=== PATIENT | female | born 1945 | race Caucasian/White ===

== ENCOUNTER 2020-02-28 06:10 | Outpatient (REF) | payer MEDICARE, SELFPAY ==
[2020-02-28 11:09] LABS: MANUAL DIFF FLAG NO
[2020-02-28 11:32] LABS: Basophils Absolute Auto 0.1 X10*3/uL (0.0-0.2); Basophils Percent Auto 0.8 % (0-2); Eosinophils Absolute Auto 0.1 X10*3/uL (0.0-0.4); Eosinophils Percent Auto 1.9 % (0-4); Hematocrit 38.8 % (37-47); Hemoglobin 12.5 g/dl (12.0-16.0); Imm Gran Abs Auto 0.01 X10*3/uL (0.00-0.03); Imm Gran Pct Auto 0.2 % (0.0-0.4); Lymphocytes Absolute Auto 3.1 X10*3/uL (1.2-4.9); Lymphocytes Percent Auto 48.1 % (20-40); Mean Corpuscular HGB Conc 32.2 g/dl (31.0-35.0); Mean Corpuscular Hemoglobin 29.5 pg (27.0-33.0); Mean Corpuscular Volume 91.5 fL (80-98); Mean Platelet Volume 9.3 fL (9.4-12.3); Monocytes Absolute Auto 0.4 X10*3/uL (0.1-1.2); Neutrophils Absolute Auto 2.8 X10*3/uL (2.0-8.3); Platelet Count 317 X10*3/uL (160-400); Red Blood Count 4.24 X10*6/uL (4.20-5.50); Red Cell Distribution Width 13.3 % (11.0-16.0); White Blood Count 6.5 X10*3/uL (4.8-10.8)
[2020-02-28 12:01] LABS: Alanine Aminotransferase 19 U/L (0-31); Albumin Level 4.3 g/dL (3.5-5.0); Alkaline Phosphatase 55 U/L (39-117); Anion Gap 14 (12-20); Aspartate Amino Transferase 23 U/L (5-31); Bilirubin Total 0.3 mg/dL (0.0-1.0); Blood Urea Nitrogen 18 mg/dL (9-16); Calcium 8.3 mg/dL (8.4-10.2); Carbon Dioxide 25 mmol/L (22-29); Chloride 107 mmol/L (96-108); Cholesterol 197 mg/dL; Estimated Glomerular Filt Rate > 60; Glucose Fasting 75 mg/dL (60-99); HDL Cholesterol 83 mg/dL; LDL Cholesterol Calculated 105 mg/dl; Potassium 4.3 mmol/l (3.3-5.1); Sodium 142 mmol/L (135-145); Total Protein 6.4 g/dL (6.5-8.0); Triglycerides 49 mg/dL
== END 2020-02-28 06:11 | disposition home or self-care (01) ==
LOC: HO.HMGCLDS 06:10
PROVIDERS: PCP Internal Medicine; Visit Provider Internal Medicine
DX: I10 Essential (primary) hypertension (principal); E78.00 Pure hypercholesterolemia, unspecified
CPT/HCPCS: 36415; 80053; 80061; 85025

== ENCOUNTER 2020-05-02 15:11 | Outpatient (REF) | payer MEDICARE, SELFPAY ==
[2020-05-02 16:09] LABS: Influenza A PCR NEGATIVE (Negative); Influenza B PCR NEGATIVE (Negative); Resp Syncy Virus RNA Qual PCR NEGATIVE (Negative); SARS COV2 PCR INHOUSE NEGATIVE (Negative)
== END 2020-05-02 15:12 | disposition home or self-care (01) ==
LOC: HO.LNP 15:11
PROVIDERS: Visit Provider Internal Medicine
DX: Z20.822 Contact with and (suspected) exposure to COVID-19 (principal); R51.9 Headache, unspecified
CPT/HCPCS: 0241U

== ENCOUNTER 2020-11-08 12:10 | Outpatient (REF) | payer MEDICARE, SELFPAY ==
--- NOTE | ~2020-11-08 | XR_ITS ---
EXAMINATION: XR FOOT, BILATERAL CLINICAL INFORMATION: Bilateral foot pain. COMPARISON: None TECHNIQUE: Three views of each foot. FINDINGS: Right: Bone alignment is normal. No fracture or dislocation is seen. There is hallux valgus deformity and degenerative change at the 1st MTP joint. There is degenerative change at the metatarsocuneiform and navicular 1st cuneiform joints. There is soft tissue swelling over the 1st metatarsal head. There is a small plantar calcaneal spur. Left: Bone alignment is normal. No fracture or dislocation is seen. There is joint space narrowing at the metatarsocuneiform and navicular 1st cuneiform joints. There is a small calcaneal spur. XR/XR foot LT min 3V IMPRESSION: Right: Hallux valgus deformity and degenerative change. Degenerative change at the metatarsocuneiform and navicular 1st cuneiform joints. Small plantar calcaneal spur. Left foot: Degenerative change at the metatarsocuneiform and navicular 1st cuneiform joints. Small plantar calcaneal spur.
--- NOTE | ~2020-11-08 | XR_ITS ---
EXAMINATION: XR FOOT, BILATERAL CLINICAL INFORMATION: Bilateral foot pain. COMPARISON: None TECHNIQUE: Three views of each foot. FINDINGS: Right: Bone alignment is normal. No fracture or dislocation is seen. There is hallux valgus deformity and degenerative change at the 1st MTP joint. There is degenerative change at the metatarsocuneiform and navicular 1st cuneiform joints. There is soft tissue swelling over the 1st metatarsal head. There is a small plantar calcaneal spur. Left: Bone alignment is normal. No fracture or dislocation is seen. There is joint space narrowing at the metatarsocuneiform and navicular 1st cuneiform joints. There is a small calcaneal spur. XR/XR foot RT min 3V IMPRESSION: Right: Hallux valgus deformity and degenerative change. Degenerative change at the metatarsocuneiform and navicular 1st cuneiform joints. Small plantar calcaneal spur. Left foot: Degenerative change at the metatarsocuneiform and navicular 1st cuneiform joints. Small plantar calcaneal spur.
== END 2020-11-08 12:11 | disposition home or self-care (01) ==
LOC: HO.HMGCX 12:10
PROVIDERS: PCP Internal Medicine; Visit Provider Internal Medicine
DX: M79.672 Pain in left foot (principal); M79.671 Pain in right foot; M21.612 Bunion of left foot; M21.611 Bunion of right foot
CPT/HCPCS: 73630

== ENCOUNTER 2020-11-20 14:36 | Outpatient (REF) | payer MEDICARE, SELFPAY ==
[2020-11-20 15:32] LABS: MANUAL DIFF FLAG NO
[2020-11-20 15:42] LABS: Basophils Percent Auto 0.3 % (0-2); Eosinophils Absolute Auto 0.1 X10*3/uL (0.0-0.4); Eosinophils Percent Auto 0.6 % (0-4); Hematocrit 38.3 % (37-47); Hemoglobin 12.9 g/dl (12.0-16.0); Imm Gran Abs Auto 0.04 X10*3/uL (0.00-0.03); Imm Gran Pct Auto 0.4 % (0.0-0.4); Lymphocytes Absolute Auto 2.3 X10*3/uL (1.2-4.9); Lymphocytes Percent Auto 23.6 % (20-40); Mean Corpuscular HGB Conc 33.7 g/dl (31.0-35.0); Mean Corpuscular Volume 86.1 fL (80-98); Mean Platelet Volume 8.8 fL (9.4-12.3); Monocytes Absolute Auto 0.6 X10*3/uL (0.1-1.2); Monocytes Percent Auto 6.1 % (2-11); Neutrophils Absolute Auto 6.6 X10*3/uL (2.0-8.3); Platelet Count 363 X10*3/uL (160-400); Red Blood Count 4.45 X10*6/uL (4.20-5.50); Red Cell Distribution Width 12.8 % (11.0-16.0); White Blood Count 9.5 X10*3/uL (4.8-10.8)
[2020-11-20 15:51] LABS: Glucose Urine UA NEG (NEG); Leukocyte Esterase Urine TRACE (NEG); Nitrite Urine NEG (NEG); Specific Gravity - Urine 1.015 (1.005-1.025); UACC Culture Trigger YES; Urine Blood TRACE (NEG); Urine Ketones NEG (NEG); Urine Protein NEG (NEG-TRACE)
[2020-11-20 15:55] LABS: Alanine Aminotransferase 17 U/L (0-31); Albumin Level 4.5 g/dL (3.5-5.0); Alkaline Phosphatase 60 U/L (39-117); Anion Gap 15 (12-20); Appearance Urine CLEAR; Aspartate Amino Transferase 22 U/L (5-31); Bilirubin Total 0.2 mg/dL (0.0-1.0); Blood Urea Nitrogen 12 mg/dL (9-16); C Reactive Protein 0.04 mg/dL (< or = 0.50); Calcium 9.8 mg/dL (8.4-10.2); Carbon Dioxide 23 mmol/L (22-29); Chloride 99 mmol/L (96-108); Color Urine YELLOW; Estimated Glomerular Filt Rate > 60; Glucose Random 89 mg/dL (60-115); Potassium 4.5 mmol/L (3.3-5.1); Sodium 132 mmol/L (135-145); Total Protein 6.8 g/dL (6.5-8.0)
[2020-11-20 16:10] LABS: Bacteria Urine 1+ /LPF; Granular Casts Urine 0-2 /LPF; Squamous Epithelial Cell Urine 1+ /LPF
== END 2020-11-20 14:37 | disposition home or self-care (01) ==
LOC: HO.LAB 14:36
PROVIDERS: PCP Internal Medicine; Visit Provider Internal Medicine
DX: R55 Syncope and collapse (principal); I10 Essential (primary) hypertension; R53.83 Other fatigue; R51.9 Headache, unspecified
CPT/HCPCS: 36415; 80053; 81001; 84443; 85025; 86140; 87086

== ENCOUNTER 2020-11-21 08:12 | Outpatient (REF) | payer MEDICARE, SELFPAY ==
--- NOTE | ~2020-11-21 | CT_ITS ---
EXAMINATION: CT HEAD WITH/WITHOUT CONTRAST CLINICAL INFORMATION: Weakness and dizziness. Headache COMPARISON: MRI of March 03, 2013 TECHNIQUE: Contiguous axial imaging was performed from the skull base to vertex before and after the administration of 85 mL of Omnipaque [address] examination was performed using dose optimization techniques as appropriate, variously including the following: *Automated exposure control *Adjustment of mA and/or kV according to patient size (this includes techniques or standardized protocols for targeted exams where dose is matched to indication/reason for exam; i.e. extremities or head) *Use of iterative reconstruction technique DLP: 1450 mGy-cm FINDINGS: There is no evidence of acute intracranial hemorrhage or territorial infarction. No abnormal mass effect or midline shift is seen. Jerome to white matter differentiation is preserved. No extra-axial fluid collections are identified. There is no abnormal enhancement. Ventricles, sulci, and cisterns are prominent consistent with atrophy. There is a large amount of periventricular white low-density consistent with microangiopathy. The osseous structures and soft tissues are normal. The mastoid air cells and visualized portions of the paranasal sinuses are well aerated. CT/CT head/brain wo/w con IMPRESSION: No acute intracranial pathology. No abnormal enhancing mass lesions. Findings consistent with microangiopathy. Generalized atrophy.
[2020-11-21] MEDS: iohexoL 350 MG/ML 100 ML INFUS..BTL IV (09:59)
== END 2020-11-21 08:13 | disposition home or self-care (01) ==
LOC: HO.CT 08:12
PROVIDERS: PCP Internal Medicine; Visit Provider Internal Medicine
DX: R51.9 Headache, unspecified (principal); R42 Dizziness and giddiness; R53.1 Weakness
CPT/HCPCS: 70470; Q9967

== ENCOUNTER 2020-11-22 10:29 | Outpatient (REF) | payer MEDICARE, SELFPAY ==
[2020-11-22 11:37] LABS: Influenza A PCR NEGATIVE (Negative); Influenza B PCR NEGATIVE (Negative); Resp Syncy Virus RNA Qual PCR NEGATIVE (Negative); SARS COV2 PCR INHOUSE NEGATIVE (Negative)
== END 2020-11-22 10:30 | disposition home or self-care (01) ==
LOC: HO.LNP 10:29
PROVIDERS: Visit Provider Internal Medicine
DX: Z20.822 Contact with and (suspected) exposure to COVID-19 (principal)
CPT/HCPCS: 0241U

== ENCOUNTER 2021-02-12 08:40 | Outpatient (REF) | payer MEDICARE, SELFPAY ==
--- NOTE | ~2021-02-12 | MM_ITS ---
EXAMINATION: MM SCREENING DIGITAL BREAST TOMOSYNTHESIS, BILATERAL CLINICAL INFORMATION: Screening. Asymptomatic. The lifetime risk of breast cancer based on the Tyrer-Cuzick Model is 2%. COMPARISON: Mammography: 12/26/2019, 12/20/2018, 11/19/2017 TECHNIQUE: Digital breast tomosynthesis is performed in both the craniocaudal and mediolateral oblique views along with computer-aided detection (CAD). Synthesized 2D images are generated from the tomosynthesis. FINDINGS: There are scattered areas of fibroglandular density (ACR BI-RADS breast composition Category b). There are no significant masses, abnormal calcifications, or other abnormalities. There are scattered benign round calcifications and stable grouped benign coarse calcifications retroareolar right breast. Two small intramammary node posterior 9:00-10:00 right breast are stable as well. No significant changes. MM/MM tomosynthesis screening BI IMPRESSION: No mammographic evidence of malignancy. ASSESSMENT: BI-RADS 2: Benign RECOMMENDATION: Routine annual mammography screening. This patient's information was entered into a reminder system with a target due date for their next mammogram.
== END 2021-02-12 08:41 | disposition home or self-care (01) ==
LOC: HO.MAMMO 08:40
PROVIDERS: Visit Provider Internal Medicine
DX: Z12.31 Encounter for screening mammogram for malignant neoplasm of breast (principal)
CPT/HCPCS: 77063; 77067

== ENCOUNTER 2021-07-22 14:36 | Outpatient (REF) | payer MEDICARE, SELFPAY ==
[2021-07-22 15:30] LABS: Influenza A PCR NEGATIVE (Negative); Influenza B PCR NEGATIVE (Negative); Resp Syncy Virus RNA Qual PCR NEGATIVE (Negative); SARS COV2 PCR INHOUSE NEGATIVE (Negative)
== END 2021-07-22 14:37 | disposition home or self-care (01) ==
LOC: HO.LNP 14:36
PROVIDERS: Visit Provider Internal Medicine
DX: Z20.822 Contact with and (suspected) exposure to COVID-19 (principal); J02.9 Acute pharyngitis, unspecified
CPT/HCPCS: 0241U

== ENCOUNTER 2022-01-02 15:54 | Emergency (ER) | payer MEDICARE, SELFPAY ==
--- NOTE | ~2022-01-02 | XR_ITS ---
EXAMINATION: XR CHEST CLINICAL INFORMATION: Chest pain COMPARISON: None TECHNIQUE: Frontal view of the chest was obtained. FINDINGS: No significant abnormality is noted involving the heart, lungs, mediastinum, bony thorax or soft tissues. XR/XR chest 1V IMPRESSION: Unremarkable chest examination.
--- NOTE | 2022-01-02 15:58 | ECG_ITS ---
Test Reason : cp Blood Pressure : / mmHG Vent. Rate : 072 BPM Atrial Rate : 072 BPM P-R Int : 146 ms QRS Dur : 068 ms QT Int : 410 ms P-R-T Axes : 036 -17 -13 degrees QTc Int : 448 ms Sinus rhythm with Premature atrial complexes Nonspecific ST abnormality Abnormal ECG When compared with ECG of 02-JAN-2022 16:02, No significant change was found Referred By: Chloe Reddy Electronically Signed By:LAXMI GERARD
[2022-01-02 15:59] VITALS: BP 186/87; PULSE 75; RESP 18; TEMP 36.3; O2SAT 98; BMI 28.3
[2022-01-02 16:17] LABS: MANUAL DIFF FLAG NO
[2022-01-02 16:29] LABS: Basophils Percent Auto 0.3 % (0-2); Eosinophils Absolute Auto 0.1 X10*3/uL (0.0-0.4); Eosinophils Percent Auto 0.8 % (0-4); Hematocrit 36.2 % (37.0-47.0); Hemoglobin 12.2 g/dl (12.0-16.0); Imm Gran Abs Auto 0.01 X10*3/uL (0.00-0.03); Imm Gran Pct Auto 0.1 % (0.0-0.4); Lymphocytes Percent Auto 34.6 % (20-40); Mean Corpuscular HGB Conc 33.7 g/dl (31.0-35.0); Mean Corpuscular Hemoglobin 29.2 pg (27.0-33.0); Mean Corpuscular Volume 86.6 fL (80.0-98.0); Mean Platelet Volume 8.6 fL (9.4-12.3); Monocytes Absolute Auto 0.6 X10*3/uL (0.1-1.2); Monocytes Percent Auto 6.3 % (2-11); Neutrophils Percent Auto 57.9 % (45-73); Platelet Count 285 X10*3/uL (160-400); Red Blood Count 4.18 X10*6/uL (4.20-5.50); White Blood Count 8.7 X10*3/uL (4.8-10.8)
[2022-01-02 16:36] LABS: Alanine Aminotransferase 17 U/L (0-31); Albumin Level 4.3 g/dL (3.5-5.0); Alkaline Phosphatase 62 U/L (39-117); Anion Gap 15 (12-20); Aspartate Amino Transferase 20 U/L (5-31); Bilirubin Total 0.2 mg/dL (0.0-1.0); Blood Urea Nitrogen 15 mg/dL (9-16); Calcium 9.2 mg/dL (8.4-10.2); Carbon Dioxide 25 mmol/L (22-29); Chloride 100 mmol/L (96-108); Creatinine Clr Calc Pharmacy 60.1; Estimated Glomerular Filt Rate > 60; Glucose Random 104 mg/dL (60-115); Sodium 136 mmol/L (135-145); Total Protein 6.7 g/dL (6.5-8.0)
[2022-01-02 16:42] LABS: Troponin-I High Sensitivity 4.5 ng/L (<3.5-17.0)
[2022-01-02 18:52] VITALS: BP 179/78; PULSE 75; RESP 18; O2SAT 96
[2022-01-02 20:00] VITALS: PULSE 76
--- NOTE | 2022-01-02 21:06 | ED_ITS ---
HPI - Chest Pain General Chief Complaint: Chest Pain Stated Complaint: sent by urgent care, blood work Time Seen by Provider: 01/02/22 21:06 Source: patient Mode of arrival: ambulatory Limitations: no limitations History of Present Illness HPI narrative: 76 yo female with hx of HTN here with c/o sharp R upper chest pain with no associated symptoms started at rest around 11am lasted two hours. Hurt to touch and now feels sore. Did lift a heavy wheelchair yesterday. Family hx of CAD in all relatives. No known CAD in patient. MD complaint: chest pain Onset (ago): hour(s) (11am today ) Timing of current episode: now resolved Prior episodes: No Onset: during rest Pain location: right chest Pain radiation: none Severity: moderate Quality: sharp Relieving factors: nothing Exacerbating factors: palpation Treatment prior to arrival: none Related Data Allergies Allergy/AdvReac Type Severity Reaction Status Date / Time epinephrine [EPINEPHRINE] Allergy Severe EPI MIXED Unverified 01/11/20 16:12 IN A LOCAL ANES. lOW BP LIGHTHEADEDNES, bradycardia amoxicillin [AMOXICILLIN] Allergy Mild RASH Unverified 01/11/20 16:12 penicillin V Allergy Unknown rash Verified 11/03/16 00:00 Review of Systems Review of Systems: Constitutional : No Weight loss, No Fever, No Chills ENT/Mouth : No sore throat, No Rhinorrhea Eyes: No Eye Pain, No Swelling Cardiovascular : pos Chest Pain, no SOB, no Dyspnea on Exertion, No Orthopnea, No Edema, No Palpitations Respiratory : No Cough, No Sputum Gastrointestinal : no Nausea, No Vomiting, No Diarrhea, No abdominal Pain, No Hematochezia, No Melena Genitourinary : No Dysuria, No Urinary Frequency Musculoskeletal : No joint pain, No Myalgias, No Joint Swelling Skin : No Skin Lesions, No rash Neuro : No Weakness, No Numbness, No Dizziness, No Headache Psych : No Anxiety/Panic, No Depression Heme/Lymph: No Bruising, No Lymphadenopathy Endocrine : No Polyuria, No Polydipsia All other systems reviewed and are negative FOR[facility]LY [facility] Past Medical History Attestation statement: The following information was validated with the patient. Medical History HTN (hypertension) Social History Social History (Updated 01/02/22 @ 21:38 by Chloe Reddy DO) Patient Tobacco Use Status: Never used Tobacco Advance Directives: Yes Advance Directives Information Provided: No Advance Directives on File: No Physical Exam Vital Signs: Vital Signs: Last Vital Signs Temp 97.3 F 01/02/22 15:59 Pulse 75 01/02/22 18:52 Resp 18 01/02/22 18:52 BP 179/78 H 01/02/22 18:52 Pulse Ox 96 01/02/22 18:52 O2 Del Method 01/02/22 18:52 BMI result Body Mass Index 28.3 Appearance: Alert. Oriented X3. No acute distress. Eyes: Pupils equal, round and reactive to light. ENT: Pharynx normal. Neck: Normal inspection. Neck supple. CVS: Normal heart rate and rhythm. Pulses normal. Chest: ttp along R upper chest wall reproduces pain Respiratory: No respiratory distress. Breath sounds normal. Abdomen: Soft and non-tender. Skin: Skin warm and dry. Normal skin color. Normal skin turgor. Extremities: No lower extremity edema. No calf ttp Neuro: Oriented X 3. No motor deficit. No sensory deficit. Course Course Course Narrative: trop flat x 2, ddimer negative at this time stable for DC heart score is 4 symptoms started 12 hours ago nonspecific but noted in just one complex not through all V4-V6 given trend over 12 hours that is good observation with flat troponins can be DC home with outpatient follow up MDM - Chest Pain MDM Narrative Medical decision making narrative: 76 yo female with hx HTN here with c/o reproduceable R upper chest pain thinks it was related to lifting a heavy WC yesterday for a friend. She has very subtle ST depressions in V4-6 but less than 1mm and only in 1 complex ?artifact. Her pain is very atypical in nature. At this time will repeat EKG, obtain troponin x 2, ddimer, CXR. If negative anticipate outpatient follow up with her PCP Lab Data Result diagrams: 01/02/22 16:13 01/02/22 16:13 Labs: Lab Results 01/02/22 01/02/22 01/02/22 Range/Units 16:13 16:13 16:13 WBC 8.7 (4.8-10.8) X10*3/uL RBC 4.18 L (4.20-5.50) X10*6/uL Hgb 12.2 (12.0-16.0) g/dl Hct 36.2 L (37.0-47.0) % MCV 86.6 (80.0-98.0) fL MCH 29.2 (27.0-33.0) pg MCHC 33.7 (31.0-35.0) g/dl RDW 13.0 (11.0-16.0) % Plt Count 285 (160-400) X10*3/uL MPV 8.6 L (9.4-12.3) fL Immature Gran % (Auto) 0.1 (0.0-0.4) % Neut % (Auto) 57.9 (45-73) % Lymph % (Auto) 34.6 (20-40) % Jackson % (Auto) 6.3 (2-11) % Eos % (Auto) 0.8 (0-4) % Baso % (Auto) 0.3 (0-2) % Lymph # (Auto) 3.0 (1.2-4.9) X10*3/uL Jackson # (Auto) 0.6 (0.1-1.2) X10*3/uL Eos # (Auto) 0.1 (0.0-0.4) X10*3/uL Baso # (Auto) 0.0 (0.0-0.2) X10*3/uL Abs Immat Gran (auto) 0.01 (0.00-0.03) X10*3/uL Absolute Neuts (auto) 5.0 (2.0-8.3) x10*3/uL Absolute Nucleated RBC 0.000 (0.0-0.012) X10*3/uL Nucleated RBC % (auto) 0.0 (0.0-0.2) /100WBC D-Dimer High Sensitivty NG/ML Sodium 136 (135-145) mmol/L Potassium 4.0 (3.3-5.1) mmol/L Chloride 100 (96-108) mmol/L Carbon Dioxide 25 (22-29) mmol/L Anion Gap 15 (12-20) BUN 15 (9-16) mg/dL Creatinine 0.68 (0.5-1.4) mg/dL Estim Creat Clear Calc 60.1 Estimated GFR > 60 Random Glucose 104 (60-115) mg/dL Calcium 9.2 D (8.4-10.2) mg/dL Total Bilirubin 0.2 (0.0-1.0) mg/dL AST 20 (5-31) U/L ALT 17 (0-31) U/L Alkaline Phosphatase 62 (39-117) U/L Troponin I High Sens 4.5 (<3.5-17.0) ng/L Total Protein 6.7 (6.5-8.0) g/dL Albumin 4.3 (3.5-5.0) g/dL 01/02/22 01/02/22 Range/Units 21:21 21:21 WBC (4.8-10.8) X10*3/uL RBC (4.20-5.50) X10*6/uL Hgb (12.0-16.0) g/dl Hct (37.0-47.0) % MCV (80.0-98.0) fL MCH (27.0-33.0) pg MCHC (31.0-35.0) g/dl RDW (11.0-16.0) % Plt Count (160-400) X10*3/uL MPV (9.4-12.3) fL Immature Gran % (Auto) (0.0-0.4) % Neut % (Auto) (45-73) % Lymph % (Auto) (20-40) % Jackson % (Auto) (2-11) % Eos % (Auto) (0-4) % Baso % (Auto) (0-2) % Lymph # (Auto) (1.2-4.9) X10*3/uL Jackson # (Auto) (0.1-1.2) X10*3/uL Eos # (Auto) (0.0-0.4) X10*3/uL Baso # (Auto) (0.0-0.2) X10*3/uL Abs Immat Gran (auto) (0.00-0.03) X10*3/uL Absolute Neuts (auto) (2.0-8.3) x10*3/uL Absolute Nucleated RBC (0.0-0.012) X10*3/uL Nucleated RBC % (auto) (0.0-0.2) /100WBC D-Dimer High Sensitivty < 150 NG/ML Sodium (135-145) mmol/L Potassium (3.3-5.1) mmol/L Chloride (96-108) mmol/L Carbon Dioxide (22-29) mmol/L Anion Gap (12-20) BUN (9-16) mg/dL Creatinine (0.5-1.4) mg/dL Estim Creat Clear Calc Estimated GFR Random Glucose (60-115) mg/dL Calcium (8.4-10.2) mg/dL Total Bilirubin (0.0-1.0) mg/dL AST (5-31) U/L ALT (0-31) U/L Alkaline Phosphatase (39-117) U/L Troponin I High Sens 3.6 (<3.5-17.0) ng/L Total Protein (6.5-8.0) g/dL Albumin (3.5-5.0) g/dL ECG Data ECG #1: Attestation: I personally reviewed and interpreted this ECG as follows: ECG interpretation date: 01/02/22 ECG interpretation time: 21:07 Interpretation: Rate: 73 Rhythm: NSR [place]: left Normal P waves. Normal DANIELLE. Normal QRS complex. ST T wave : no LILLI, subtle ST depressions V4-V6 less than 1mm but only in 1 complex beat qTC: normal prior studies: no priors The study has been interpreted contemporaneously by me. EKG #2 Rate: 72 Rhythm: NSR [place]: left Normal P waves. Normal DANIELLE. Normal QRS complex. ST T wave : no LILLI, V4-V6 nonspecific changes qTC: normal prior studies: ST depressions less evident - tech noted she changed sticker placement The study has been interpreted contemporaneously by me. . Scores Heart Score History: -0- slightly suspicious ECG: -1- non specific repolarization disturbance Age: -2- > or = 65 Risk factory: -1- 1 or 2 risk factors Troponin: -0- < or = normal limit Score: 4 Risk: 16.6% Discharge Plan Discharge Clinical Impression: Chest pain Qualifiers: Chest pain type: unspecified Qualified Code(s): R07.9 - Chest pain, unspecified Patient Disposition: Home, Self-Care Instructions: Chest Pain (ED) Additional Instructions: return to ED for any worsening symptoms or concerns chest xray two heart tests negative blood clot test negative you will need to call your primary care doctor for outpatient stress test next week take a baby 81mg aspirin daily
--- NOTE | 2022-01-02 21:26 | ECG_ITS ---
Test Reason : CHEST PAIN Blood Pressure : / mmHG Vent. Rate : 073 BPM Atrial Rate : 073 BPM P-R Int : 158 ms QRS Dur : 080 ms QT Int : 414 ms P-R-T Axes : 049 -25 007 degrees QTc Int : 456 ms Sinus rhythm with Premature atrial complexes Nonspecific ST abnormality Abnormal ECG When compared with ECG of 28-AUG-2005 16:24, Premature ventricular complexes are no longer Present Premature atrial complexes are now Present T wave inversion no longer evident in Lateral leads Nonspecific ST abnormality is now Present Referred By: Chloe Reddy Electronically Signed By:LAXMI GERARD
[2022-01-02 21:51] LABS: Troponin-I High Sensitivity 3.6 ng/L (<3.5-17.0)
[2022-01-02 22:04] LABS: D Dimer High Sensitivity < 150 NG/ML
[2022-01-02 22:15] VITALS: BP 158/90; PULSE 89; RESP 15; O2SAT 99
== END 2022-01-02 22:23 | disposition home or self-care (01) ==
PROVIDERS: Emergency Provider Emergency Medicine; PCP Internal Medicine
DX: R07.89 Other chest pain (principal); Z79.899 Other long term (current) drug therapy
CPT/HCPCS: 36415; 71045; 80053; 84484; 85025; 85379; 93005; 99283; 99284

== ENCOUNTER 2022-02-18 09:36 | Outpatient (REF) | payer MEDICARE, SELFPAY ==
--- NOTE | ~2022-02-18 | MM_ITS ---
EXAMINATION: MM SCREENING DIGITAL BREAST TOMOSYNTHESIS, BILATERAL CLINICAL INFORMATION: Screening. Asymptomatic. The lifetime risk of breast cancer based on the Tyrer-Cuzick Model is 3%. COMPARISON: Mammography: 02/12/2021, 12/26/2019, 12/20/2018, 11/19/2017 TECHNIQUE: Digital breast tomosynthesis is performed in both the craniocaudal and mediolateral oblique views along with computer-aided detection (CAD). Synthesized 2D images are generated from the tomosynthesis. FINDINGS: There are scattered areas of fibroglandular density (ACR BI-RADS breast composition Category b). There are no significant masses, abnormal calcifications, or other abnormalities. Parenchymal pattern is similar to prior exams. No developing density. Benign grouped coarse calcifications anterior right breast are similar to prior studies. The axilla and skin contours are unremarkable. MM/MM tomosynthesis screening BI IMPRESSION: No mammographic evidence of malignancy. ASSESSMENT: BI-RADS 2: Benign RECOMMENDATION: Routine annual mammography screening. This patient's information was entered into a reminder system with a target due date for their next mammogram.
== END 2022-02-18 09:37 | disposition home or self-care (01) ==
LOC: HO.MAMMO 09:36
PROVIDERS: PCP Internal Medicine; Visit Provider Internal Medicine
DX: Z12.31 Encounter for screening mammogram for malignant neoplasm of breast (principal)
CPT/HCPCS: 77063; 77067

== ENCOUNTER 2022-05-07 10:55 | Outpatient (REF) | payer MEDICARE, SELFPAY ==
--- NOTE | ~2022-05-07 | MM_ITS ---
EXAMINATION: BONE DENSITOMETRY CLINICAL INDICATION: Menopause. COMPARISON: Previous BD dated 10/20/2016 and baseline BD dated 04/01/2009. TECHNIQUE: Using a [employer] DXA System (software version: 13.1) manufactured by [employer], dual-energy x-ray absorptiometry was performed of the lumbar spine and left hip. The images are of good technical quality. Summary results are attached. FINDINGS: AP SPINE L1-L2 (excluding L3 and L4): The data of L1-L4 has been changed to exclude the L3 and L4 vertebral bodies, because degenerative sclerosis at these levels may cause overestimation of lumbar spine density. Current: BMD 0.868 g/cm2, Z-score -0.7, T-score -2.5, osteoporosis, 8.3% decrease from previous, 5.7% decrease from baseline (<5% change is not significant). Prior: BMD 0.947 g/cm2. Baseline: BMD 0.920 g/cm2. LEFT FEMUR, NECK: Current: BMD 0.710 g/cm2, Z-score -0.3, T-score -2.4, osteopenia. Prior: BMD 0.759 g/cm2. Baseline: BMD 0.786 g/cm2. LEFT FEMUR, TOTAL: Current: BMD 0.786 g/cm2, Z-score 0.1, T-score -1.8, osteopenia, 5.3% decrease from previous, 8.5% decrease from baseline (<5% change is not significant). Prior: BMD 0.830 g/cm2. Baseline: BMD 0.859 g/cm2. IDENTIFIED RISK FACTORS: Menopause, height loss, history of fracture (adult), osteoporosis. HISTORY OF FRACTURE: Other. MEDICATIONS: Calcium, vitamin D. MM/XR DEXA axial skeleton IMPRESSION: 1. DIAGNOSIS: Osteoporosis based on the lowest T-score value of -2.5 in the lumbar spine applying World Health Organization criteria. 2. 10-YEAR FRACTURE RISK PREDICTION, FRAX: According to the guidelines, FRAX calculation should only be performed on patients in the osteopenia bone density category. Therefore, FRAX was not performed on this patient. 3. Treatment Recommendations: NOF guidelines recommend consideration for treatment in postmenopausal women and men age 50 and older presenting with the following: -A hip or vertebral (clinical or morphometric) fracture. -T-score less than or equal to -2.5 at the femoral neck or spine after appropriate evaluation to exclude secondary causes. -Low bone mass at the hip or spine and a 10-year fracture probability by FRAX of greater than or equal to 3% for hip fracture or greater than or equal to 20% for major osteoporotic fracture based on the [place] adapted WHO algorithm. 4. Other Recommendations: All treatment decisions require clinical judgment and consideration of individual patient factors, including patient preferences, comorbidities, previous drug use, risk factors not captured in the FRAX model (e.g. frailty, falls, vitamin D deficiency, increased bone turnover, interval significant decline in bone density) and possible under or overestimation of fracture risk by FRAX. Additional medical evaluation for secondary cause of low bone mineral density may be appropriate. FUTURE SCAN RECOMMENDATION: People with diagnosed cases of osteoporosis or at high risk for fracture should have regular bone mineral density tests. For patients eligible for Medicare, routine testing is allowed once every 2 years. The testing frequency can be increased to one year for patients who have rapidly progressing disease, those who are receiving or discontinuing medical therapy to restore bone mass, or have additional risk factors.
== END 2022-05-07 10:56 | disposition home or self-care (01) ==
LOC: HO.MAMMO 10:55
PROVIDERS: PCP Internal Medicine; Visit Provider Internal Medicine
DX: Z13.820 Encounter for screening for osteoporosis (principal); Z78.0 Asymptomatic menopausal state
CPT/HCPCS: 77080

== ENCOUNTER 2022-05-13 06:17 | Outpatient (REF) | payer MEDICARE, SELFPAY ==
[2022-05-13 11:47] LABS: MANUAL DIFF FLAG NO
[2022-05-13 11:54] LABS: Basophils Percent Auto 0.3 % (0-2); Eosinophils Absolute Auto 0.1 X10*3/uL (0.0-0.4); Hematocrit 38.1 % (37.0-47.0); Hemoglobin 12.5 g/dl (12.0-16.0); Imm Gran Abs Auto 0.01 X10*3/uL (0.00-0.03); Imm Gran Pct Auto 0.1 % (0.0-0.4); Lymphocytes Absolute Auto 2.9 X10*3/uL (1.2-4.9); Mean Corpuscular HGB Conc 32.8 g/dl (31.0-35.0); Mean Corpuscular Hemoglobin 29.6 pg (27.0-33.0); Mean Corpuscular Volume 90.3 fL (80.0-98.0); Mean Platelet Volume 9.3 fL (9.4-12.3); Monocytes Absolute Auto 0.5 X10*3/uL (0.1-1.2); Monocytes Percent Auto 6.6 % (2-11); Neutrophils Absolute Auto 3.5 x10*3/uL (2.0-8.3); Platelet Count 325 X10*3/uL (160-400); Red Blood Count 4.22 X10*6/uL (4.20-5.50); Red Cell Distribution Width 13.1 % (11.0-16.0)
[2022-05-13 12:22] LABS: Alanine Aminotransferase 16 U/L (0-31); Alkaline Phosphatase 49 U/L (39-117); Anion Gap 11 (12-20); Aspartate Amino Transferase 19 U/L (5-31); Bilirubin Total 0.4 mg/dL (0.0-1.0); Blood Urea Nitrogen 21 mg/dL (9-16); Calcium 9.7 mg/dL (8.4-10.2); Carbon Dioxide 27 mmol/L (22-29); Chloride 107 mmol/L (96-108); Cholesterol 196 mg/dL; Estimated Glomerular Filt Rate > 60; Glucose Fasting 79 mg/dL (60-99); HDL Cholesterol 77 mg/dL; LDL Cholesterol Calculated 106 mg/dl; Potassium 4.1 mmol/L (3.3-5.1); Sodium 141 mmol/L (135-145); Total Protein 6.3 g/dL (6.5-8.0); Triglycerides 66 mg/dL
== END 2022-05-13 06:18 | disposition home or self-care (01) ==
LOC: HO.HMGCLDS 06:17
PROVIDERS: PCP Internal Medicine; Visit Provider Internal Medicine
DX: Z00.00 Encounter for general adult medical examination without abnormal findings (principal)
CPT/HCPCS: 36415; 80053; 80061; 85025

== ENCOUNTER 2023-02-23 09:46 | Outpatient (REF) | payer MEDICARE, SELFPAY ==
--- NOTE | ~2023-02-23 | MM_ITS ---
EXAMINATION: MM SCREENING DIGITAL BREAST TOMOSYNTHESIS, BILATERAL CLINICAL INFORMATION: Screening. Asymptomatic. COMPARISON: Mammography: This study is compared with prior exams dating back to 2016. TECHNIQUE: Digital breast tomosynthesis is performed in both the craniocaudal and mediolateral oblique views along with computer-aided detection (CAD). Synthesized 2D images are generated from the tomosynthesis. FINDINGS: There are scattered areas of fibroglandular density (ACR BI-RADS breast composition Category b). There are no significant masses, abnormal calcifications, or other abnormalities. Few, bilateral benign calcifications are present in each breast. MM/MM tomosynthesis screening BI IMPRESSION: No mammographic evidence of malignancy. ASSESSMENT: BI-RADS BI-RADS 2 - Benign Findings RECOMMENDATION: Routine annual mammography screening. 1 year F/U This examination should not preclude the clinical evaluation of a suspicious palpable abnormality. This patient's information was entered into a reminder system with a target due date for their next mammogram.
== END 2023-02-23 09:47 | disposition home or self-care (01) ==
LOC: HO.MAMMO 09:46
PROVIDERS: PCP Internal Medicine; Visit Provider Internal Medicine
DX: Z12.31 Encounter for screening mammogram for malignant neoplasm of breast (principal)
CPT/HCPCS: 77063; 77067

== ENCOUNTER → 2023-02-23 10:00 | Outpatient (BNV) | payer MEDICARE, SELFPAY | PROVIDERS: PCP Internal Medicine; Visit Provider Radiology Diagnostic Radiology | DX: Z12.31 Encounter for screening mammogram for malignant neoplasm of breast (principal) | CPT/HCPCS: 77063; 77067 ==

== ENCOUNTER 2023-06-16 06:26 | Outpatient (REF) | payer MEDICARE, SELFPAY ==
[2023-06-16 11:15] LABS: MANUAL DIFF FLAG NO
[2023-06-16 11:24] LABS: Basophils Percent Auto 0.5 % (0-2); Eosinophils Absolute Auto 0.1 X10*3/uL (0.0-0.4); Eosinophils Percent Auto 1.6 % (0-4); Hematocrit 37.8 % (37.0-47.0); Hemoglobin 12.4 g/dl (12.0-16.0); Imm Gran Abs Auto 0.02 X10*3/uL (0.00-0.03); Imm Gran Pct Auto 0.3 % (0.0-0.4); Lymphocytes Absolute Auto 2.6 X10*3/uL (1.2-4.9); Lymphocytes Percent Auto 40.1 % (20-40); Mean Corpuscular HGB Conc 32.8 g/dl (31.0-35.0); Mean Corpuscular Hemoglobin 29.7 pg (27.0-33.0); Mean Corpuscular Volume 90.6 fL (80.0-98.0); Monocytes Absolute Auto 0.4 X10*3/uL (0.1-1.2); Monocytes Percent Auto 6.2 % (2-11); Neutrophils Absolute Auto 3.3 x10*3/uL (2.0-8.3); Neutrophils Percent Auto 51.3 % (45-73); Platelet Count 326 X10*3/uL (160-400); Red Blood Count 4.17 X10*6/uL (4.20-5.50); Red Cell Distribution Width 13.1 % (11.0-16.0); White Blood Count 6.4 X10*3/uL (4.8-10.8)
[2023-06-16 11:39] LABS: Alanine Aminotransferase 19 U/L (0-31); Albumin Level 3.9 g/dL (3.5-5.0); Alkaline Phosphatase 49 U/L (39-117); Anion Gap 11 (12-20); Aspartate Amino Transferase 21 U/L (5-31); Bilirubin Total 0.3 mg/dL (0.0-1.0); Blood Urea Nitrogen 19 mg/dL (9-16); Calcium 9.1 mg/dL (8.4-10.2); Carbon Dioxide 29 mmol/L (22-29); Chloride 108 mmol/L (96-108); Cholesterol 188 mg/dL (<200); Estimated Glomerular Filt Rate > 60; Glucose Fasting 77 mg/dL (60-99); HDL Cholesterol 75 mg/dL (>40); LDL Cholesterol Calculated 100 mg/dL (<100); Potassium 3.8 mmol/L (3.3-5.1); Sodium 144 mmol/L (135-145); Total Protein 6.5 g/dL (6.5-8.0); Triglycerides 66 mg/dL (<150)
== END 2023-06-16 06:27 | disposition home or self-care (01) ==
LOC: HO.HMGCLDS 06:26
PROVIDERS: PCP Internal Medicine; Visit Provider Internal Medicine
DX: I10 Essential (primary) hypertension (principal); E78.00 Pure hypercholesterolemia, unspecified
CPT/HCPCS: 36415; 80053; 80061; 85025

== ENCOUNTER 2023-10-18 12:22 | Outpatient (REF) | payer MEDICARE, SELFPAY ==
[2023-10-18 13:25] LABS: MANUAL DIFF FLAG NO
[2023-10-18 13:28] LABS: Basophils Percent Auto 0.4 % (0-2); Eosinophils Absolute Auto 0.1 X10*3/uL (0.0-0.4); Eosinophils Percent Auto 0.6 % (0-4); Hematocrit 36.3 % (37.0-47.0); Hemoglobin 12.3 g/dl (12.0-16.0); Imm Gran Abs Auto 0.05 X10*3/uL (0.00-0.03); Imm Gran Pct Auto 0.6 % (0.0-0.4); Lymphocytes Absolute Auto 2.4 X10*3/uL (1.2-4.9); Mean Corpuscular HGB Conc 33.9 g/dl (31.0-35.0); Mean Corpuscular Hemoglobin 29.7 pg (27.0-33.0); Mean Corpuscular Volume 87.7 fL (80.0-98.0); Monocytes Absolute Auto 0.5 X10*3/uL (0.1-1.2); Monocytes Percent Auto 6.5 % (2-11); Neutrophils Absolute Auto 4.8 x10*3/uL (2.0-8.3); Neutrophils Percent Auto 60.9 % (45-73); Platelet Count 313 X10*3/uL (160-400); Red Blood Count 4.14 X10*6/uL (4.20-5.50); Red Cell Distribution Width 13.4 % (11.0-16.0); White Blood Count 7.8 X10*3/uL (4.8-10.8)
[2023-10-18 13:34] LABS: D Dimer High Sensitivity 196 NG/ML
[2023-10-18 13:42] LABS: Alanine Aminotransferase 20 U/L (0-31); Albumin Level 4.2 g/dL (3.5-5.0); Alkaline Phosphatase 52 U/L (39-117); Anion Gap 11 (12-20); Aspartate Amino Transferase 21 U/L (5-31); Bilirubin Total 0.2 mg/dL (0.0-1.0); Blood Urea Nitrogen 12 mg/dL (9-16); Calcium 9.9 mg/dL (8.4-10.2); Carbon Dioxide 28 mmol/L (22-29); Chloride 104 mmol/L (96-108); Estimated Glomerular Filt Rate > 60; Glucose Random 96 mg/dL (60-115); Potassium 4.1 mmol/L (3.3-5.1); Sodium 139 mmol/L (135-145); Total Protein 6.7 g/dL (6.5-8.0)
[2023-10-18 13:57] LABS: Troponin-I High Sensitivity < 2.7 ng/L (<3.5-17.0)
== END 2023-10-18 12:23 | disposition home or self-care (01) ==
LOC: HO.10HDL 12:22
PROVIDERS: Visit Provider Internal Medicine
DX: R00.2 Palpitations (principal)
CPT/HCPCS: 36415; 80053; 82550; 83735; 84484; 85025; 85379

== ENCOUNTER 2023-10-20 07:16 | Emergency (ER) | payer MEDICARE, SELFPAY ==
--- NOTE | ~2023-10-20 | CT_ITS ---
EXAMINATION: CT HEAD WITHOUT CONTRAST CLINICAL INFORMATION: Headaches COMPARISON: 11/21/2020 TECHNIQUE: Contiguous axial imaging was performed from the skull base to vertex without intravenous administration of contrast. This CT examination was performed using dose optimization techniques as appropriate, variously including the following: *Automated exposure control *Adjustment of mA and/or kV according to patient size (this includes techniques or standardized protocols for targeted exams where dose is matched to indication/reason for exam; i.e. extremities or head) *Use of iterative reconstruction technique DLP: 598 mGy-cm FINDINGS: There is prominence to the sulci and ventricles with extensive deep white matter gliosis however no evidence for intra or extra-axial fluid collection or hemorrhage, mass, or mass effect. The calvarium is intact. CT/CT head/brain wo IV con IMPRESSION: No acute intracranial pathology.
[2023-10-20 07:28] VITALS: BP 180/75; PULSE 68; RESP 16; TEMP 36.9; O2SAT 98; BMI 27.9
--- NOTE | 2023-10-20 07:33 | ECG_ITS ---
Test Reason : palpitatations Blood Pressure : / mmHG Vent. Rate : 070 BPM Atrial Rate : 070 BPM P-R Int : 134 ms QRS Dur : 078 ms QT Int : 418 ms P-R-T Axes : 031 -27 018 degrees QTc Int : 451 ms Normal sinus rhythm Septal infarct , age undetermined Abnormal ECG When compared with ECG of 02-JAN-2022 21:23, Premature atrial complexes are no longer Present Septal infarct is now Present Referred By: Generic ED Physician Electronically Signed By:ALBER KRAMER MD
[2023-10-20 07:49] LABS: MANUAL DIFF FLAG NO
[2023-10-20 07:53] LABS: Basophils Percent Auto 0.4 % (0-2); Eosinophils Percent Auto 0.6 % (0-4); Hematocrit 36.7 % (37.0-47.0); Hemoglobin 12.8 g/dl (12.0-16.0); Imm Gran Abs Auto 0.01 X10*3/uL (0.00-0.03); Imm Gran Pct Auto 0.1 % (0.0-0.4); Lymphocytes Absolute Auto 2.1 X10*3/uL (1.2-4.9); Lymphocytes Percent Auto 28.7 % (20-40); Mean Corpuscular HGB Conc 34.9 g/dl (31.0-35.0); Mean Corpuscular Hemoglobin 30.2 pg (27.0-33.0); Mean Corpuscular Volume 86.6 fL (80.0-98.0); Mean Platelet Volume 8.5 fL (9.4-12.3); Monocytes Absolute Auto 0.4 X10*3/uL (0.1-1.2); Monocytes Percent Auto 5.4 % (2-11); Neutrophils Absolute Auto 4.7 x10*3/uL (2.0-8.3); Neutrophils Percent Auto 64.8 % (45-73); Platelet Count 283 X10*3/uL (160-400); Red Blood Count 4.24 X10*6/uL (4.20-5.50); Red Cell Distribution Width 13.2 % (11.0-16.0); White Blood Count 7.2 X10*3/uL (4.8-10.8)
--- NOTE | 2023-10-20 08:06 | ED.HA ---
HPI - Headache General Chief Complaint: Headache Stated Complaint: Headache Time Seen by Provider: 10/20/23 07:59 Source: patient Mode of arrival: ambulatory Limitations: no limitations History of Present Illness ED Provider: Dr. Castro HPI Narrative: Patient recently diagnosed with atrial fibrillation and was started on eliquis. Patient prior was having headaches and then had a fall and her headaches are now worse. She claims that she has been dehydrated. MD elicited complaint: headache Onset (ago): week(s) Related Data Allergies Allergy/AdvReac Type Severity Reaction Status Date / Time epinephrine [EPINEPHRINE] Allergy Severe EPI MIXED Verified 10/20/23 07:32 IN A LOCAL ANES. lOW BP LIGHTHEADEDNES, bradycardia amoxicillin [AMOXICILLIN] Allergy Mild RASH Verified 10/20/23 07:32 penicillin V Allergy Unknown rash Verified 10/20/23 07:32 Review of Systems Review of Systems: Yes all other systems are reviewed and are negative Neurologic: Denies Sensory deficit (Neuro) [facility] Past Medical History Medical History HTN (hypertension) Social History Social History Alcohol intake: current Alcohol intake frequency: holidays/special occasions only Alcohol type: wine Patient Tobacco Use Status: Never used Tobacco Smoked in Last 30 Days: No Use of substances other than those prescribed or required for medical reasons: No Advance Directives: No Advance Directives Information Provided: Yes Do you have a plan to hurt others: No Plan Physical Exam Vital Signs: Vital Signs: Last Vital Signs Temp 98.4 F 10/20/23 07:28 Pulse 62 10/20/23 11:03 Resp 18 10/20/23 11:03 BP 144/82 H 10/20/23 11:03 Pulse Ox 98 10/20/23 11:03 O2 Del Method Room Air 10/20/23 11:03 BMI result Body Mass Index 27.9 Const: General: healthy appearing Nutritional Appearance: average body habitus Orientation/consciousness: oriented to person and patient oriented x3 Limitations: no limitations HEENT: Head: Yes normal to inspection Ears: external ears normal General nose exam: Normal external nose present Mouth: Normal oral and palatal mucosa present and oropharynx normal Throat: Yes posterior oropharynx normal Eyes: General: appearance normal, both eyes and all related structures Neck: Other: supple Neck: Yes normal visual inspection Chest: Chest palpation & inspection: normal inspection of the chest Resp: Auscultation: clear to auscultation bilaterally Cardio: Jugular venous distension: no JVD Rate: regular rate Rhythm: regular rhythm Heart sounds: S1 normal heart sound present and S2 normal heart sound present GI: Inspection: Yes normal to inspection Palpation (GI): Soft to palpation, nontender and No hepatosplenomegaly present Auscultation: normal bowel sounds : General: Yes no CVA tenderness Back/Spine/Pelvis: Back: no CVA tenderness Skin: General skin exam: no rashes or lesions noted Neuro: General: oriented to person and patient oriented x3 Cranial nerves: Yes CN's II-XII intact bilaterally Motor exam (neuro): 5/5 motor strength present throughout Sensory Exam: No Sensory deficit (Neuro) Extrem: General: Yes normal to inspection Psych: Appearance: grossly normal Course Reevaluation(s) Reevaluation #1: no cerebral bleed no arrythmia while in the department Time: 12:27 Medical Decision Making Differential Diagnosis Differential Diagnoses: The differential diagnosis associated with the presentation includes (subdural hematoma, concussion, dehydration, atrial fibrillation) Admission/Observation Consideration of admission/observation: Escalation of care including admission/observation considered (upon arrival patient considered for admission) Lab Data 10/20/23 07:46 10/20/23 07:46 Labs: Lab Results 10/20/23 10/20/23 Range/Units 07:46 08:53 WBC 7.2 (4.8-10.8) X10*3/uL RBC 4.24 (4.20-5.50) X10*6/uL Hgb 12.8 (12.0-16.0) g/dl Hct 36.7 L (37.0-47.0) % MCV 86.6 (80.0-98.0) fL MCH 30.2 (27.0-33.0) pg MCHC 34.9 (31.0-35.0) g/dl RDW 13.2 (11.0-16.0) % Plt Count 283 (160-400) X10*3/uL MPV 8.5 L (9.4-12.3) fL Immature Gran % (Auto) 0.1 (0.0-0.4) % Neut % (Auto) 64.8 (45-73) % Lymph % (Auto) 28.7 (20-40) % [place] % (Auto) 5.4 (2-11) % Eos % (Auto) 0.6 (0-4) % Baso % (Auto) 0.4 (0-2) % Lymph # (Auto) 2.1 (1.2-4.9) X10*3/uL [place] # (Auto) 0.4 (0.1-1.2) X10*3/uL Eos # (Auto) 0.0 (0.0-0.4) X10*3/uL Baso # (Auto) 0.0 (0.0-0.2) X10*3/uL Abs Immat Gran (auto) 0.01 (0.00-0.03) X10*3/uL Absolute Neuts (auto) 4.7 (2.0-8.3) x10*3/uL Absolute Nucleated RBC 0.000 (0.0-0.012) X10*3/uL Nucleated RBC % (auto) 0.0 (0.0-0.2) /100WBC Sodium 138 (135-145) mmol/L Potassium 3.9 (3.3-5.1) mmol/L Chloride 102 (96-108) mmol/L Carbon Dioxide 27 (22-29) mmol/L Anion Gap 13 (12-20) BUN 11 (9-16) mg/dL Creatinine 0.72 (0.5-1.4) mg/dL Estim Creat Clear Calc 54.6 Estimated GFR > 60 Random Glucose 101 (60-115) mg/dL Calcium 9.6 (8.4-10.2) mg/dL Total Bilirubin 0.4 (0.0-1.0) mg/dL AST 24 (5-31) U/L ALT 26 (0-31) U/L Alkaline Phosphatase 52 (39-117) U/L Troponin I High Sens 3.3 (<3.5-17.0) ng/L Total Protein 6.7 (6.5-8.0) g/dL Albumin 4.1 (3.5-5.0) g/dL Urine Color Yellow Urine Appearance Cloudy Urine pH 8.0 (5.0-9.0) Ur Specific [place] 1.010 (1.005-1.025) Urine Protein Negative (Neg-Trace) mg/dL Urine Glucose (UA) Negative (Negative) mg/dL Urine Ketones Negative (Negative) mg/dL Urine Blood Trace H (Negative) Urine Nitrite Negative (Negative) Ur Leukocyte Esterase Trace H (Negative) Urine RBC 3-5 H (0-2) /HPF Urine WBC 0-5 (0-5) /HPF Ur Squamous Epith Cells >20 (0-2) /HPF Urine Bacteria 1+ (None Seen) Hyaline Casts 0-2 (0-2) /LPF Independent Interpretation I performed an independent interpretation of an: EKG (sinus 70, no st or twave changes) and CT Scan (atrophy no bleed) Radiology Impression Discussion of test interpretation with radiology: I have reviewed the radiologist's reading. Independent Historian Clinical information obtained from an independent historian. History obtained from or confirmed by: Friend Discharge Plan Discharge Clinical Impression: Headache Patient Disposition: Home, Self-Care Instructions: Acute Headache (ED) Additional Instructions: may take tylenol every 4-6 hours, avoid motrin as you are on anticoagulation Referrals: Vinicius Rojas MD [Primary Care Provider] - 3 days Print Language: Syrian
[2023-10-20 08:10] LABS: Alanine Aminotransferase 26 U/L (0-31); Albumin Level 4.1 g/dL (3.5-5.0); Alkaline Phosphatase 52 U/L (39-117); Anion Gap 13 (12-20); Aspartate Amino Transferase 24 U/L (5-31); Bilirubin Total 0.4 mg/dL (0.0-1.0); Blood Urea Nitrogen 11 mg/dL (9-16); Calcium 9.6 mg/dL (8.4-10.2); Carbon Dioxide 27 mmol/L (22-29); Chloride 102 mmol/L (96-108); Creatinine Clr Calc Pharmacy 54.6; Estimated Glomerular Filt Rate > 60; Glucose Random 101 mg/dL (60-115); Potassium 3.9 mmol/L (3.3-5.1); Sodium 138 mmol/L (135-145); Total Protein 6.7 g/dL (6.5-8.0)
[2023-10-20 08:16] VITALS: BP 177/79; PULSE 63; RESP 18
[2023-10-20 08:19] LABS: Troponin-I High Sensitivity 3.3 ng/L (<3.5-17.0)
[2023-10-20 08:59] LABS: Appearance Urine Cloudy; Color Urine Yellow; Glucose Urine UA Negative (Negative); Leukocyte Esterase Urine Trace (Negative); Nitrite Urine Negative (Negative); UMIC TRIGGER UACC YES; Urine Blood Trace (Negative); Urine Ketones Negative (Negative); Urine Protein Negative (Neg-Trace)
[2023-10-20 09:01] LABS: Bacteria Urine 1+ (None Seen); Hyaline Casts Urine 0-2 /LPF (0-2); Squamous Epithelial Cell Urine >20 /HPF (0-2); WBC Urine 0-5 /HPF (0-5)
[2023-10-20 11:03] VITALS: BP 144/82; PULSE 62; RESP 18; O2SAT 98
[2023-10-20 12:42] VITALS: BP 162/77; PULSE 65; RESP 17; O2SAT 97
[2023-10-20 12:43] VITALS: BP 162/77; PULSE 65; RESP 17; TEMP 36.9; O2SAT 97
== END 2023-10-20 12:46 | disposition home or self-care (01) ==
PROVIDERS: Emergency Provider Emergency Medicine; PCP Internal Medicine
DX: R51.9 Headache, unspecified (principal); R00.2 Palpitations; I48.91 Unspecified atrial fibrillation; Z79.01 Long term (current) use of anticoagulants
CPT/HCPCS: 36415; 70450; 80053; 81001; 84484; 85025; 93005; 99284; 99285

== ENCOUNTER → 2023-10-20 07:33 | Outpatient (BNV) | payer MEDICARE, SELFPAY | PROVIDERS: Emergency Provider Emergency Medicine; PCP Internal Medicine; Visit Provider Internal Medicine Cardiovascular Disease | DX: R94.31 Abnormal electrocardiogram [ECG] [EKG] (principal) | CPT/HCPCS: 93010 ==

== ENCOUNTER → 2023-10-22 13:12 | Outpatient (REF) | payer MEDICARE, SELFPAY ==
--- NOTE | 2023-10-22 13:16 | HM_ITS ---
Conclusion: 1. Patient was monitored for total period of 2 days and 23 hours 2. Baseline was normal sinus rhythm with average heart of 67 beats per minute 3. No significant pauses noted 4. Frequent PACs noted with total burden of 8.5% 5. Frequent runs of SVE, longest lasting 1 minute and 44 seconds consistent with atrial fibrillation 6. Patient reported about 11 events of dizziness correlating with PACs MTDD
== END ==
LOC: HO.CARD 13:12
PROVIDERS: PCP Internal Medicine; Visit Provider Internal Medicine
DX: R00.2 Palpitations (principal)
CPT/HCPCS: 93242

== ENCOUNTER → 2023-10-22 13:16 | Outpatient (BNV) | payer MEDICARE, SELFPAY | PROVIDERS: PCP Internal Medicine; Visit Provider Internal Medicine Cardiovascular Disease | DX: I49.1 Atrial premature depolarization (principal) | CPT/HCPCS: 93244 ==

== ENCOUNTER 2023-10-26 11:22 | Outpatient (REF) | payer MEDICARE, SELFPAY ==
--- NOTE | ~2023-10-26 | XR_ITS ---
EXAMINATION: XR CHEST CLINICAL INFORMATION: Palpitations for 2 weeks COMPARISON: 01/02/2022 TECHNIQUE: 2 views of the chest were obtained. FINDINGS: No significant abnormality is noted involving the heart, lungs, mediastinum, bony thorax or soft tissues. XR/XR chest 2V IMPRESSION: Unremarkable examination.
[2023-10-26 11:57] LABS: MANUAL DIFF FLAG NO
[2023-10-26 12:12] LABS: Basophils Percent Auto 0.4 % (0-2); Eosinophils Percent Auto 0.3 % (0-4); Hematocrit 37.3 % (37.0-47.0); Hemoglobin 12.6 g/dl (12.0-16.0); Imm Gran Abs Auto 0.03 X10*3/uL (0.00-0.03); Imm Gran Pct Auto 0.4 % (0.0-0.4); Lymphocytes Absolute Auto 1.9 X10*3/uL (1.2-4.9); Lymphocytes Percent Auto 28.3 % (20-40); Mean Corpuscular HGB Conc 33.8 g/dl (31.0-35.0); Mean Corpuscular Hemoglobin 29.5 pg (27.0-33.0); Mean Corpuscular Volume 87.4 fL (80.0-98.0); Mean Platelet Volume 8.5 fL (9.4-12.3); Monocytes Absolute Auto 0.4 X10*3/uL (0.1-1.2); Neutrophils Absolute Auto 4.4 x10*3/uL (2.0-8.3); Neutrophils Percent Auto 64.6 % (45-73); Platelet Count 315 X10*3/uL (160-400); Red Blood Count 4.27 X10*6/uL (4.20-5.50); Red Cell Distribution Width 13.1 % (11.0-16.0); White Blood Count 6.8 X10*3/uL (4.8-10.8)
[2023-10-26 12:26] LABS: D Dimer High Sensitivity < 150 NG/ML
[2023-10-26 12:41] LABS: B Type Natriuretic Peptide 135 pg/mL (<100)
[2023-10-26 12:50] LABS: Appearance Urine Clear; Color Urine Yellow; Glucose Urine UA Negative (Negative); Leukocyte Esterase Urine Negative (Negative); Nitrite Urine Negative (Negative); UMIC TRIGGER UACC YES; Urine Blood Trace (Negative); Urine Ketones Negative (Negative); Urine Protein Negative (Neg-Trace)
[2023-10-26 12:52] LABS: Erythrocyte Sedimentation Rate 13 MM/HR (0-20)
[2023-10-26 12:54] LABS: Bacteria Urine None Seen (None Seen); Hyaline Casts Urine 0-2 /LPF (0-2); Squamous Epithelial Cell Urine 0-2 /HPF (0-2); WBC Urine 0-5 /HPF (0-5)
[2023-10-26 13:01] LABS: C Reactive Protein < 0.10 mg/dL (< or = 0.50)
[2023-10-26 13:03] LABS: Free T4 (Free Thyroxine) 0.94 ng/dL (0.71-1.85); Thyroid Stimulating Hormone 1.55 uIU/mL (0.32-4.0); Vitamin B12 546 pg/mL (200-900)
[2023-10-27 22:13] LABS: Lyme Abs Screen <0.90 index
== END 2023-10-26 11:23 | disposition home or self-care (01) ==
LOC: HO.LAB 11:22
PROVIDERS: PCP Internal Medicine; Visit Provider Internal Medicine
DX: R53.83 Other fatigue (principal); R53.1 Weakness; R00.2 Palpitations; I48.0 Paroxysmal atrial fibrillation; I10 Essential (primary) hypertension; Z79.01 Long term (current) use of anticoagulants
CPT/HCPCS: 36415; 71046; 81001; 82550; 82607; 83880; 84439; 84443; 85025; 85379; 85652; 86140; 86617; 86618; 87086; 93005; 99212

== ENCOUNTER 2023-10-26 13:23 | Outpatient (AMB) | payer MEDICARE, SELFPAY ==
--- NOTE | 2023-10-26 13:28 | A.OFFVIS_ITS ---
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 Automation Software Engineer Required: No Lead Burner Supervisor: Lead Burner Supervisor Present Accompanied by: Daughter Allergies epinephrine [EPINEPHRINE] Allergy (Severe, Verified 10/20/23 07:32) EPI MIXED IN A LOCAL ANES. lOW BP LIGHTHEADEDNES, bradycardia amoxicillin [AMOXICILLIN] Allergy (Mild, Verified 10/20/23 07:32) RASH penicillin V Allergy (Unknown, Verified 10/20/23 07:32) rash Medication List - Last Reconciled 10/26/23 by Bipin Caro MD apixaban (Eliquis) 2.5 mg PO BID aspirin (Adult Low Dose Aspirin) 81 mg PO DAILY calcium carbonate 500 mg PO DAILY cholecalciferol (vitamin D3) 50 mcg PO QWEEK flaxseed oil 1,000 mg PO BID lisinopril 20 mg PO DAILY magnesium glycinate 100 mg PO DAILY multivitamin 1 tab PO DAILY simvastatin 20 mg PO DAILY HPI Comments Details: Thank you for referring Casey in cardiology consultation today for management of lightheadedness and atrial arrhythmias. 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 She recently started having symptoms of lightheadedness again. She says she can not describe it clearly but says feels lightheaded, not quite faint. She does not have dizziness. She has never had fainting episodes. But she says she has to lie down when these episodes happen. Symptoms then passed and she is able to do her activity level. However over the last couple weeks she is got pretty disabled because of these symptoms. She subsequently saw your office and at that time was noted to have irregular pulse and suspicion was raised for atrial fibrillation. She was started on Eliquis at 2.5 mg b.i.d. and low-dose aspirin was continued. She was then prescribed a Holter monitor which she completed yesterday. A preliminary reviewed her Holter monitor which shows very frequent PACs at about 8% burden with episodes of runs of SVTs which are most suggestive of atrial fibrillation the longest episode lasting 1 minute and 44 seconds. She would blood work today which showed BNP was slightly elevated. However she denies any clear symptoms of heart failure. Denies any significant orthopnea, PND, leg edema. No worsening shortness of breath. She denies any exertional lightheadedness or syncope. She has never had any episodes of prior vascular events so coronary artery disease or myocardial infarction. Her she is strong family history for coronary artery disease, father passing away at age 62 with RI. Brother having in quadruple coronary artery bypass grafting age 70. She is longstanding history of hypertension which has been pretty much controlled on lisinopril therapy at 20 mg daily. She is also on simvastatin therapy. About 10 or 11 years ago she would similar symptoms and had workup done at an outside cardiology office including nuclear stress test here at [facility] which showed normal perfusion at that time. Holter monitor shows frequent PACs but no atrial fibrillation. Atrial fibrillation diagnosis is new for her. However there is no clear correlation with her symptoms of lightheadedness in atrial fibrillation although on the monitor marker event she does have PACs when she gets lightheaded. She is monitor blood pressure during this time occasionally blood pressure is elevated 150/90 range. Daughter who accompanied her says that she is pretty disabled because of these new onset of symptoms. [facility] Medical History Paroxysmal atrial fibrillation Cataract HTN (hypertension) Family History Father Myocardial infarct Mother Myocardial infarct Brother History of quadruple bypass Social History Alcohol intake: current Alcohol intake frequency: holidays/special occasions only Alcohol type: wine Patient Tobacco Use Status: Never used Tobacco Review of Systems Const Denies chills, Denies daytime sleepiness, Denies fatigue, Denies fever(s), Denies lethargy, Denies snoring, Denies stops breathing during sleep, Denies weight gain, Denies weight loss and Denies other Eyes Denies loss of vision ENT Reports hearing loss Card Denies chest pain, Denies irregular heart rhythm, Denies claudication, Denies leg edema, Denies lightheadedness, Denies palpitations, Denies dyspnea, Denies dyspnea on exertion, Denies orthopnea and Reports other Resp Denies cough, Denies excessive phlegm production, Denies dyspnea, Denies dyspnea on exertion and Denies snoring GI Denies abdominal pain, Denies hematochezia, Denies change in bowel habits, Denies nausea and Denies vomiting Denies dysuria Musc Denies arthralgias, Denies muscle weakness and Denies numbness Skin/Breast Reports as per HPI, Denies nail changes and Denies rash Neuro Denies loss of vision, Denies memory loss and Denies numbness Psych Reports anxiety, Denies depression and Denies memory loss Endo Denies fatigue and Denies palpitations Ulysses/Lymph Denies easy bruising Physical Exam Vital Signs: Last Vital Signs Pulse 72 10/26/23 13:31 BP 130/70 10/26/23 13:31 BMI result Body Mass Index 28.4 Const General: cooperative, comfortable, no acute distress, alert, awake, Physically active and well groomed Nutritional Appearance: overweight Orientation/consciousness: patient oriented x3 Limitations: no limitations HEENT Head: Yes normocephalic and Yes atraumatic Neck Neck: Yes trachea midline, Yes supple and Yes no JVD Resp Effort & Inspection: normal respiratory effort Auscultation: clear to auscultation bilaterally Cardio Jugular venous distension: no JVD Palpation: normal PMI Rate: regular rate Rhythm: regular rhythm Heart sounds: S1 normal heart sound present, S2 normal heart sound present, no click, no gallops, no murmurs and no rubs GI Auscultation: normal bowel sounds Skin General skin exam: no rashes or lesions noted Neuro General: patient oriented x3 and no focal motor deficits Extrem General: Yes no clubbing, cyanosis or edema Psych Appearance: grossly normal Affect: Anxious affect present Office Procedures EKG Details: EKG shows normal sinus rhythm with PACs with poor R-wave progression, most likely due to lead placement. [id number], Complete Assessment & Plan Assessment & Plan (1) Paroxysmal atrial fibrillation: Code(s): I48.0 - Paroxysmal atrial fibrillation Category: Medical Plan: Patient with recent Holter monitor with episodes of paroxysmal atrial fibrillation, longest lasting 1 minute and 44 seconds. Not sure if she is clearly symptomatic related to it. Advise her to by phone based EKGs smart device that will help us delineate her symptoms with any associated atrial fibrillation that may require more aggressive treatment. For now will start on Toprol-XL 50 mg daily to reduce occurrence of atrial fibrillation make her heart less excited will. This was discussed with her. Continue oral anticoagulation but should be on 5 mg b.i.d. of Eliquis. There is no indication for aspirin therapy given increased bleeding risk with dual therapy. This was discussed with her. Avoidance of stimulants was discussed. Will obtain further structural workup including an echocardiogram and exercise myocardial perfusion imaging to further assess and help with management of her atrial fibrillation. (2) HTN (hypertension): Code(s): I10 - Essential (primary) hypertension Category: Medical Plan: Hypertension currently well optimized and has been well optimized on lisinopril therapy for long time although she is started noticing recent symptoms lightheadedness with some blood pressure correlating and showing elevated blood pressure. Advised to continue monitor blood pressure at home. Meanwhile will start on Toprol-XL as above. Continue low-salt diet. Stress mitigation strategies advised. Advised to maintain a log of her blood pressures. Follow up in the clinic in 6 weeks time, sooner p.r.n.. Thank you for allowing me to partake in her care Orders: Orders CA echo transthoracic complete Today I48.0 - Paroxysmal atrial fibrillation CA stress test Today I48.0 - Paroxysmal atrial fibrillation NM cardiolite stress test 2 Weeks I48.0 - Paroxysmal atrial fibrillation, R07.9 - Chest pain, unspecified Medications: New apixaban (Eliquis) 5 mg PO BID 60 tabs 5RF metoprolol succinate ER (Toprol XL) 50 mg PO DAILY 30 tabs 5RF Coding Level of Care Code New Pt Level 4 (22444) Diagnoses Paroxysmal atrial fibrillation I48.0 HTN (hypertension) I10 CPT Codes EKG - CPT: 57889-[id number], Complete ([id number])
[2023-10-26 13:31] VITALS: BP 130/70; PULSE 72; BMI 28.4
== END 2023-10-26 14:28 | disposition home or self-care (01) ==
PROVIDERS: PCP Internal Medicine; Visit Provider Internal Medicine Cardiovascular Disease
DX: I48.0 Paroxysmal atrial fibrillation (principal); I10 Essential (primary) hypertension; I49.1 Atrial premature depolarization
CPT/HCPCS: 93010; 99214

== ENCOUNTER 2023-10-27 09:15 | Outpatient (REF) | payer MEDICARE, SELFPAY ==
[2023-10-31 14:13] LABS: Adrenocorticotropic Hormone 12 pg/mL (6-50)
== END 2023-10-27 09:16 | disposition home or self-care (01) ==
LOC: HO.LAB 09:15
PROVIDERS: PCP Internal Medicine; Visit Provider Internal Medicine
DX: R53.83 Other fatigue (principal); R00.2 Palpitations
CPT/HCPCS: 36415; 82024

== ENCOUNTER → 2023-11-10 12:57 | Outpatient (REF) | payer MEDICARE, SELFPAY ==
--- NOTE | 2023-11-10 13:00 | CA_ITS ---
Transthoracic Echocardiogram Patient (Last, First, Middle): Casey Collier, Gender: Female Date of : 1945 Age: 78 Procedure Date: 11/10/2023 Procedure Type: Transthoracic Echocardiogram Location: OP Height: 154.94 cm Weight: 68.04 kg BSA: 1.67 m2 Heart Rate: 62 bpm BP: 132 / 88 mmHg Circulation Crew Leader: RITO Referring MD: Bipin Caro MD Rn Gynecology: Bipin Caro MD Symptoms: I48.0 - Paroxysmal atrial fibrillation Study Quality: Adequate ECG Rhythm: Sinus Conclusions: - 1. Normal LV ejection fraction of 65-70% with pseudonormal filling pattern 2. Moderately dilated left atrium 3. Calcific aortic valve changes noted with severe mitral calcification with mild mitral regurgitation 4. Normal RV systolic pressure 5. Mildly dilated ascending aorta at 4.3 cm 6. No gross pericardial effusion Findings Left Ventricle Normal left ventricular size, thickness, and systolic function. The visually estimated ejection fraction is between 65-70%. Spectral Doppler is indicative of a pseudonormal filling pattern. Right Ventricle Normal right ventricular cavity size and systolic function. Atria The left atrium is moderately dilated. Interatrial shunt cannot be excluded. The right atrium is normal in size. Aortic Valve The aortic valve was not well visualized. There is mild calcification of the aortic valve. There is no aortic valve stenosis. The peak aortic gradient is 8 mmHg.The mean gradient is 5 mmHg. There is no aortic valve regurgitation. Mitral Valve There is mild anterior and severe posterior mitral leaflet thickening. There is severe mitral annular calcification. There is mild mitral valve regurgitation. There is no mitral valve stenosis. Pulmonic Valve The pulmonic valve was not well visualized. Tricuspid Valve Likely normal tricuspid valve structure and function. There is trace tricuspid valve regurgitation. The right ventricular systolic pressure is normal. The right ventricular systolic pressure is 21 mmHg. Normal right atrial pressure. There is no evidence of pulmonary hypertension. Great Vessels The pulmonary artery was not well visualized. There is mild dilatation of the ascending aorta measuring 4.30 cm. Small plaque is seen in the sino tubular ridge. Venous The inferior vena cava is normal in size and collapses greater than 50% with inspiration. Pericardium/Pleural There is no evidence of pericardial effusion. Prior Study Comparison No prior study available for comparison. Measurements 2D Linear Measurements IVSd: 0.98 0.6-0.9/0.6-1.0 cm LVIDd: 5.03 3.9-5.3/4.2-5.9 cm LVIDd Index: 3.01 2.4-3.2/2.2-3.1 cm/m2 LVIDs: 2.85 2.0-3.6 cm LVPWd: 0.93 0.7-1.1 cm LA Diam: 3.80 2.7-3.8/3.0-4.0 cm LAIDs Index: 2.28 1.5-2.3 cm/m2 LV Mass: 214.97 67-162/88-224 g LV Mass Index: 128.73 43-95/49-115 g/m2 LVOT Diam: 1.80 3.0+(-)1.3 cm 2D Systolic Function EF 4C: 66.20 >55% EF 2C: 70.70 >55% EF BiP: 70.30 >55% Mitral Valve MV VTI: 0.37 MV Pk Ted: 1.04 MV Mn Ted: 0.54 MV Pk Grad: 4.00 MV Mn Grad: 1.00 MV Pk E: 0.84 MV PK A: 0.82 MV Decel Time: 203.00 E/A: 1.00 E'Lateral: 7.22 E'Medial: 5.11 E/E' Med: 16.40 E/E' Lat: 11.60 PHT: 60.00 MVA PHT: 3.67 MVA Continuity: 1.73 Decel [place]: 4.13 Aortic Valve AoV Pk Ted: 1.45 AoV Mn Ted: 1.00 AoV VTI: 0.34 AoV Pk Grad: 8.00 Aov Mn Grad: 5.00 ZARA Cont.VTI: 1.89 LVOT LVOT Pk Ted: 1.03 LVOT Mn Ted: 0.74 LVOT VTI: 0.25 LVOT Pk Grad: 4.00 LVOT Mn Grad: 3.00 LVOT Diam: 1.80 LVOT Area: 2.54 Diastolic Function MV Pk E: 0.84 MV Pk A: 0.82 E/A: 1.00 E'Medial: 5.11 E/E' Med: 16.40 E' Laterial: 7.22 E/E' Lat: 11.60 Right Ventricle TVS' Ted: 8.37 Tricuspid Valve TR Pk Ted: 2.14 TR Pk Grad: 18.00 RA Press: 3.00 RVSP: 21.00 Great Vessels Aorta Sinus of Valsalva: 3.60 2.0-3.5 cm Ao Asc: 4.30 2.1-3.4 cm Pulmonary Valve PV Pk Ted: 0.74 Peak PV Grad: 2.00 Updated in Other Vendor System with Status of Final Bipin Caro MD electronically signed on 11/11/2023 5:34:02 PM with status of Final
== END ==
LOC: HO.CARD 12:57
PROVIDERS: PCP Internal Medicine; Visit Provider Internal Medicine Cardiovascular Disease
DX: I48.0 Paroxysmal atrial fibrillation (principal)
CPT/HCPCS: 93306

== ENCOUNTER → 2023-11-10 13:00 | Outpatient (BNV) | payer MEDICARE, SELFPAY | PROVIDERS: PCP Internal Medicine; Visit Provider Internal Medicine Cardiovascular Disease | DX: I34.0 Nonrheumatic mitral (valve) insufficiency (principal); I34.81 Nonrheumatic mitral (valve) annulus calcification; I35.8 Other nonrheumatic aortic valve disorders | CPT/HCPCS: 93306 ==

== ENCOUNTER → 2023-11-22 08:18 | Outpatient (REF) | payer MEDICARE, SELFPAY ==
--- NOTE | 2023-11-22 08:25 | CA_ITS ---
Acquisition Time: 2023-11-22 08:56:13 Total Exercise Time: 00:02:01 Test Indications: CP Medications: SEE H Protocol: SIVAN Max HR: 160 BPM 114% of Pred: 140 BPM Max BP: 156/084 mmHG Max Work Load: 4.6 METS Exercise stress test exercise 2 min1 sec of Sivan protocol achieving 100% MPHR, with moderate SOB, no chest pains, with isolated PACs, P{VCs, and Venmtricular Cupelts, with normotensive response to exercise, with nondiagnoisitic EKGs. Patient went into afib - known history. Test changed to pharmacological stress test with Lexiscanm with 3-4/10 chest heaviness, with isolate dPVC, with normotensive response to exercise, with nondiagnoitic EKGs. Aminophyllien 75mg IVP given to reverse Lexiscan. Chest heaviness resolved. Nuclear images pending. Test reviewed with Dr. Poole. . Referred By: Bipin Caro Overread By: Maria Lackey
== END ==
LOC: HO.CARD 08:18
PROVIDERS: PCP Internal Medicine; Visit Provider Internal Medicine Cardiovascular Disease
DX: R07.9 Chest pain, unspecified (principal); I48.0 Paroxysmal atrial fibrillation
CPT/HCPCS: 93017; J0280; J2785

== ENCOUNTER 2023-11-22 10:19 | Observation (INO) | payer MEDICARE, SELFPAY ==
[2023-11-22] VITALS (7 sets, daily range): BP systolic 115–159; BP diastolic 55–132; PULSE 72–145; RESP 16–160; TEMP 36.5–36.7; O2SAT 95–98; BMI 28.4
--- NOTE | 2023-11-22 | ECG_ITS ---
Test Reason : RYTHYM CHANGE Blood Pressure : / mmHG Vent. Rate : 089 BPM Atrial Rate : 089 BPM P-R Int : 154 ms QRS Dur : 070 ms QT Int : 390 ms P-R-T Axes : 038 -24 001 degrees QTc Int : 474 ms Sinus rhythm with marked sinus arrhythmia Low voltage QRS Nonspecific ST abnormality Abnormal ECG When compared with ECG of 22-NOV-2023 10:25, Sinus rhythm has replaced Atrial fibrillation ST no longer depressed in Lateral leads Referred By: Kim Flores Electronically Signed By:Momo Poole
--- NOTE | 2023-11-22 10:26 | ECG_ITS ---
Test Reason : AFIB Blood Pressure : / mmHG Vent. Rate : 124 BPM Atrial Rate : 000 BPM P-R Int : 000 ms QRS Dur : 072 ms QT Int : 324 ms P-R-T Axes : 000 -19 083 degrees QTc Int : 465 ms Atrial fibrillation with rapid ventricular response Inferior infarct , age undetermined Abnormal ECG When compared with ECG of 20-OCT-2023 07:35, Atrial fibrillation has replaced Sinus rhythm Vent. rate has increased BY 54 BPM Criteria for Septal infarct are no longer Present Referred By: Generic ED Physician Electronically Signed By:Momo Poole
--- NOTE | 2023-11-22 11:05 | ED_ITS ---
HPI - Arrhythmia/Palpitations General Chief Complaint: Arrhythmia/Palpitations Stated Complaint: afib Time Seen by Provider: 11/22/23 10:50 Source: patient Mode of arrival: wheelchair Limitations: no limitations History of Present Illness HPI narrative: This is 78 years old patient with history of atrial fibrillation on apixaban and diltiazem presented to ED from the stress lab because in rapid AFib heart rate was about 144 MD complaint: rapid heart beat, heart racing , palpitations and irregular heart beat Onset (ago): hour(s) (1) Duration: constant Severity: moderate Context: occurred during exertion Arrhythmia history: atrial fibrillation Associated symptoms: denies other symptoms Related Data Home Medications ?Medication ?Instructions ?Recorded ?Confirmed calcium carbonate 500 mg PO DAILY 10/26/23 10/26/23 cholecalciferol (vitamin D3) 50 50 mcg PO QWEEK 10/26/23 10/26/23 mcg (2,000 unit) capsule flaxseed oil 1,000 mg capsule 1,000 mg PO BID 10/26/23 10/26/23 magnesium glycinate 100 mg (as 100 mg PO DAILY 10/26/23 10/26/23 glycinate) tablet multivitamin 1 tab PO DAILY 10/26/23 10/26/23 simvastatin 20 mg tablet 20 mg PO DAILY 10/26/23 10/26/23 lisinopril 20 mg tablet 10 mg PO DAILY 11/11/23 Previous Rx's ?Medication ?Instructions ?Recorded apixaban 5 mg tablet (Eliquis) 5 mg PO BID #60 tabs 10/26/23 diltiazem HCl 120 mg 120 mg PO DAILY #30 caps 11/16/23 capsule,extended release 24 hr (Cardizem CD) Allergies Allergy/AdvReac Type Severity Reaction Status Date / Time epinephrine [EPINEPHRINE] Allergy Severe EPI MIXED Verified 11/22/23 10:26 IN A LOCAL ANES. lOW BP LIGHTHEADEDNES, bradycardia amoxicillin [AMOXICILLIN] Allergy Mild RASH Verified 11/22/23 10:26 penicillin V Allergy Unknown rash Verified 11/22/23 10:26 Review of Systems 2 Constitutional: Constitutional: Reports no additional constitutional complaints Cardiovascular: Cardiovascular: Reports no additional cardiovascular complaints Musculoskeletal: Musculoskeletal: Reports no additional musculoskeletal complaints PMFSH Past Medical History Attestation statement: The following information was validated with the patient. Medical History Paroxysmal atrial fibrillation Cataract HTN (hypertension) Family History Family History Father Myocardial infarct Mother Myocardial infarct Brother History of quadruple bypass Social History Social History Alcohol intake: current Alcohol intake frequency: holidays/special occasions only Alcohol type: wine Patient Tobacco Use Status: Never used Tobacco Smoked in Last 30 Days: No Use of substances other than those prescribed or required for medical reasons: No Advance Directives: No Advance Directives Information Provided: Yes Do you have a plan to hurt others: No Plan Physical Exam 2 Vital Signs: Vital Signs: Last Vital Signs Temp 97.7 F 11/22/23 10:24 Pulse 121 H 11/22/23 12:39 Resp 21 H 11/22/23 11:25 BP 132/83 11/22/23 12:39 Pulse Ox 97 11/22/23 11:25 O2 Del Method Room Air 11/22/23 11:25 BMI result Body Mass Index 28.4 She looks well she is not toxic-appearing Const: General: cooperative, comfortable and no acute distress Nutritional Appearance: average body habitus Orientation/consciousness: patient oriented x3 Limitations: no limitations HEENT: Head: Yes normal to inspection General nose exam: Normal external nose present Face and sinus: Yes normal facial exam Mouth: Normal oral and palatal mucosa present Throat: Yes posterior oropharynx normal Neck: Neck: Yes normal visual inspection and Yes full ROM Chest: Chest palpation & inspection: normal inspection of the chest Resp: Effort & Inspection: normal respiratory effort and able to speak in complete sentences Auscultation: clear to auscultation bilaterally Cardio: Jugular venous distension: no JVD Rate: tachycardic Rhythm: a bnormal rhythm GI: Inspection: Yes normal to inspection Palpation (GI): Soft to palpation Percussion: Yes normal to percussion Auscultation: normal bowel sounds : General: Yes no CVA tenderness Back/Spine/Pelvis: Back: no CVA tenderness Skin: General skin exam: no rashes or lesions noted Lesions: no lesions Rashes: no rashes Neuro: General: patient oriented x3 Cranial nerves: Yes CN's II-XII intact bilaterally Motor exam (neuro): 5/5 motor strength present throughout Course Reevaluation(s) Reevaluation #1: seen by case manager in ED Time: 12:41 Medications Administered Generic Name Dose Route Start Last Admin Trade Name Freq PRN Reason Stop Dose Admin Diltiazem HCl 125 mg/ Sodium 125 mls @ 0 mls/hr 11/22/23 11:15 11/22/23 12:39 Chloride IVCONT 10 mg/hr .Q0M MAYA 10 mls/hr Administration Protocol Per Protocol Discontinued Medications Generic Name Dose Route Start Last Admin Trade Name Freq PRN Reason Stop Dose Admin Diltiazem HCl 15 mg 11/22/23 11:13 11/22/23 11:25 Diltiazem Hcl 50 Mg/10 Ml Vial IVPUSH 11/22/23 11:14 15 mg STAT STA Administration Medical Decision Making Medical Decision Making [facility] Narrative: Patient presented in rapid AFib rate [address] 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 11/22/23 11:27 11/22/23 11:27 Labs: Lab Results 11/22/23 Range/Units 11:27 WBC 7.7 (4.8-10.8) X10*3/uL RBC 4.32 (4.20-5.50) X10*6/uL Hgb 13.0 (12.0-16.0) g/dl Hct 38.3 (37.0-47.0) % MCV 88.7 (80.0-98.0) fL MCH 30.1 (27.0-33.0) pg MCHC 33.9 (31.0-35.0) g/dl RDW 13.5 (11.0-16.0) % Plt Count 281 (160-400) X10*3/uL MPV 8.4 L (9.4-12.3) fL Immature Gran % (Auto) 0.3 (0.0-0.4) % Neut % (Auto) 57.8 (45-73) % Lymph % (Auto) 34.5 (20-40) % [place] % (Auto) 5.6 (2-11) % Eos % (Auto) 1.3 (0-4) % Baso % (Auto) 0.5 (0-2) % Lymph # (Auto) 2.7 (1.2-4.9) X10*3/uL [place] # (Auto) 0.4 (0.1-1.2) X10*3/uL Eos # (Auto) 0.1 (0.0-0.4) X10*3/uL Baso # (Auto) 0.0 (0.0-0.2) X10*3/uL Abs Immat Gran (auto) 0.02 (0.00-0.03) X10*3/uL Absolute Neuts (auto) 4.4 (2.0-8.3) x10*3/uL Absolute Nucleated RBC 0.000 (0.0-0.012) X10*3/uL Nucleated RBC % (auto) 0.0 (0.0-0.2) /100WBC Sodium 135 (135-145) mmol/L Potassium 4.0 (3.3-5.1) mmol/L Chloride 102 (96-108) mmol/L Carbon Dioxide 23 (22-29) mmol/L Anion Gap 14 (12-20) BUN 18 H (9-16) mg/dL Creatinine 0.65 (0.5-1.4) mg/dL Estim Creat Clear Calc 60.9 Estimated GFR > 60 Random Glucose 89 (60-115) mg/dL Calcium 9.6 (8.4-10.2) mg/dL Total Bilirubin 0.2 (0.0-1.0) mg/dL AST 21 (5-31) U/L ALT 20 (0-31) U/L Alkaline Phosphatase 50 (39-117) U/L Troponin I High Sens < 2.7 (<3.5-17.0) ng/L Total Protein 7.0 (6.5-8.0) g/dL Albumin 4.4 (3.5-5.0) g/dL Independent Interpretation I performed an independent interpretation of an: EKG Interpretation: Atrial fibrillation rapid ventricular response of 125 reviewed by me Radiology Impression Discussion of test interpretation with radiology: I have reviewed the radiologist's reading. Critical Care Time Critical Care Time Critical Care Time: Yes Total Critical Care Time: 60 Attestation: IV cardizem and titration Discharge Plan Discharge Clinical Impression: Atrial fibrillation with rapid ventricular response Patient Disposition: Admitted As Inpatient Print Language: Ethiopian
[2023-11-22] MEDS: dilTIAZem HCL 50 MG/10 ML VIAL 15 MG IVPUSH (11:25)
[2023-11-22 11:36] LABS: MANUAL DIFF FLAG NO
[2023-11-22 11:38] LABS: Basophils Percent Auto 0.5 % (0-2); Eosinophils Absolute Auto 0.1 X10*3/uL (0.0-0.4); Eosinophils Percent Auto 1.3 % (0-4); Hematocrit 38.3 % (37.0-47.0); Imm Gran Abs Auto 0.02 X10*3/uL (0.00-0.03); Imm Gran Pct Auto 0.3 % (0.0-0.4); Lymphocytes Absolute Auto 2.7 X10*3/uL (1.2-4.9); Lymphocytes Percent Auto 34.5 % (20-40); Mean Corpuscular HGB Conc 33.9 g/dl (31.0-35.0); Mean Corpuscular Hemoglobin 30.1 pg (27.0-33.0); Mean Corpuscular Volume 88.7 fL (80.0-98.0); Mean Platelet Volume 8.4 fL (9.4-12.3); Monocytes Absolute Auto 0.4 X10*3/uL (0.1-1.2); Monocytes Percent Auto 5.6 % (2-11); Neutrophils Absolute Auto 4.4 x10*3/uL (2.0-8.3); Neutrophils Percent Auto 57.8 % (45-73); Platelet Count 281 X10*3/uL (160-400); Red Blood Count 4.32 X10*6/uL (4.20-5.50); Red Cell Distribution Width 13.5 % (11.0-16.0); White Blood Count 7.7 X10*3/uL (4.8-10.8)
[2023-11-22 11:55] LABS: Alanine Aminotransferase 20 U/L (0-31); Albumin Level 4.4 g/dL (3.5-5.0); Alkaline Phosphatase 50 U/L (39-117); Anion Gap 14 (12-20); Aspartate Amino Transferase 21 U/L (5-31); Bilirubin Total 0.2 mg/dL (0.0-1.0); Blood Urea Nitrogen 18 mg/dL (9-16); Calcium 9.6 mg/dL (8.4-10.2); Carbon Dioxide 23 mmol/L (22-29); Chloride 102 mmol/L (96-108); Creatinine Clr Calc Pharmacy 60.9; Estimated Glomerular Filt Rate > 60; Glucose Random 89 mg/dL (60-115); Sodium 135 mmol/L (135-145)
[2023-11-22 12:06] LABS: Troponin-I High Sensitivity < 2.7 ng/L (<3.5-17.0)
[2023-11-22] MEDS: dilTIAZem HCL 125 MG in 0.9 % Sodium Chloride 100 ML 10 MG IVCONT (12:39)
--- NOTE | 2023-11-22 12:40 | P.CONCA_ITS ---
History of Present Illness History of Present Illness Date of Service: 11/22/23 Requesting physician: Sushil Rizzo Chief complaint: PAF Narrative: Pleasant 78-year-old lady who came for exercise stress test and developed AFib with RVR and was sent to the emergency department. She has known history of recently diagnosed paroxysmal atrial fibrillation. This was diagnosed in September and she was started on apixaban 2.5 mg twice a day and aspirin [address] Rojas. She subsequently saw Dr. Caro in the office on October 25 and Toprol- XL was added to her regimen and Eliquis dose was increased to 5 mg twice a day. She was advised to undergo stress testing for which she came today. She was initially in sinus rhythm but while exercising she developed atrial fibrillation with rapid ventricular response. She had palpitations and was sent to the emergency department for further assessment. She is saying that she gets little more fatigued when she gets atrial fibrillation. Denying any significant shortness of breath or chest pain. Clinically not in heart failure. She is on diltiazem now because she could not tolerate metoprolol apparently and is currently on diltiazem 120 mg daily. She is on apixaban 5 mg twice a day which she has been taking regularly for the last month without any missed doses. No bleeding concerns. No chest discomfort. REPLACED BY [facility] Past Medical History Medical History Paroxysmal atrial fibrillation Cataract HTN (hypertension) Family History Family History Father Myocardial infarct Mother Myocardial infarct Brother History of quadruple bypass Social History Social History Alcohol intake: current Alcohol intake frequency: holidays/special occasions only Alcohol type: wine Patient Tobacco Use Status: Never used Tobacco Smoked in Last 30 Days: No Use of substances other than those prescribed or required for medical reasons: No Advance Directives: No Advance Directives Information Provided: Yes Do you have a plan to hurt others: No Plan Meds Allergies Allergy/AdvReac Type Severity Reaction Status Date / Time epinephrine [EPINEPHRINE] Allergy Severe EPI MIXED Verified 11/22/23 10:26 IN A LOCAL ANES. lOW BP LIGHTHEADEDNES, bradycardia amoxicillin [AMOXICILLIN] Allergy Mild RASH Verified 11/22/23 10:26 penicillin V Allergy Unknown rash Verified 11/22/23 10:26 Active Medications: Current Medications Amiodarone HCl (Amiodarone Hcl 200 Mg Tablet) 400 mg PO BID [facility] Diltiazem HCl 125 mg/ Sodium (Chloride) 125 mls @ 0 mls/hr IVCONT .Q0M [facility]; Protocol Last Admin: 11/22/23 12:39 Dose: 10 mg/hr, 10 mls/hr Home Medications ?Medication ?Instructions ?Recorded ?Confirmed ?Last Taken ?Type calcium carbonate 500 mg PO DAILY 10/26/23 10/26/23 Unknown History cholecalciferol (vitamin D3) 50 50 mcg PO QWEEK 10/26/23 10/26/23 Unknown History mcg (2,000 unit) capsule flaxseed oil 1,000 mg capsule 1,000 mg PO BID 10/26/23 10/26/23 Unknown History magnesium glycinate 100 mg (as 100 mg PO DAILY 10/26/23 10/26/23 Unknown History glycinate) tablet multivitamin 1 tab PO DAILY 10/26/23 10/26/23 Unknown History simvastatin 20 mg tablet 20 mg PO DAILY 10/26/23 10/26/23 Unknown History lisinopril 20 mg tablet 10 mg PO DAILY 11/11/23 Unknown History Physical Exam 2 Vital Signs: Vital Signs: Last Vital Signs Temp 97.7 F 11/22/23 10:24 Pulse 121 H 11/22/23 12:39 Resp 21 H 11/22/23 11:25 BP 132/83 11/22/23 12:39 Pulse Ox 97 11/22/23 11:25 O2 Del Method Room Air 11/22/23 11:25 BMI result Body Mass Index 28.4 GENERAL APPEARANCE: in no acute distress, pleasant. NECK: no carotid bruit, no jugular venous distention. SKIN: no suspicious lesions, warm and dry. HEART: no murmurs, irregular rate and rhythm. Tachycardic. LUNGS: clear to auscultation bilaterally. ABDOMEN: soft, nontender. EXTREMITIES: no edema. PERIPHERAL PULSES: equal. NEUROLOGIC: No gross deficits, AAO X 3 Objective Labs and Meds 11/22/23 11:27 11/22/23 11:27 Lab results: Laboratory Results - last 24 hr 07/29/24 11:27 WBC 7.7 RBC 4.32 Hgb 13.0 Hct 38.3 MCV 88.7 MCH 30.1 MCHC 33.9 RDW 13.5 Plt Count 281 MPV 8.4 L Immature Gran % (Auto) 0.3 Neut % (Auto) 57.8 Lymph % (Auto) 34.5 [place] % (Auto) 5.6 Eos % (Auto) 1.3 Baso % (Auto) 0.5 Lymph # (Auto) 2.7 [place] # (Auto) 0.4 Eos # (Auto) 0.1 Baso # (Auto) 0.0 Abs Immat Gran (auto) 0.02 Absolute Neuts (auto) 4.4 Absolute Nucleated RBC 0.000 Nucleated RBC % (auto) 0.0 Sodium 135 Potassium 4.0 Chloride 102 Carbon Dioxide 23 Anion Gap 14 BUN 18 H Creatinine 0.65 Estim Creat Clear Calc 60.9 Estimated GFR > 60 Random Glucose 89 Calcium 9.6 Total Bilirubin 0.2 AST 21 ALT 20 Alkaline Phosphatase 50 Troponin I High Sens < 2.7 Total Protein 7.0 Albumin 4.4 Assessment and Plan (1) Atrial fibrillation with rapid ventricular response: Status: Acute (2) HTN (hypertension): Status: Acute Plan Pleasant 78-year-old female with paroxysmal atrial fibrillation who presented for exercise stress test and developed AFib with RVR while exercising. Continues to be in AFib with RVR currently. She has been taking apixaban 5 mg twice a day. I have given her the choice to do cardioversion versus trying oral medications and diltiazem to see if she converts on her own. She currently wants to try medications. We will admit her to medicine service. Starting amiodarone 400 mg twice a day. She can stay on low-dose Cardizem drip target heart rates of low 100s. If she does not convert till tomorrow then keep her NPO after midnight for potential cardioversion tomorrow. Apixaban should not be interrupted and she should continue taking it b.i.d.. She has taken the morning dose today. She will get elective stress testing as outpatient once she is more stable. Thank you for allowing me to participate in the care of your patient. Please feel free to contact me if you have any questions. Procedures Date of Service Date of Service: 11/22/23
[2023-11-22] MEDS: Amiodarone HCL 200 MG TABLET 400 MG PO ×2 (13:05→21:40)
--- NOTE | 2023-11-22 13:25 | PHA.MEDREC ---
Addendum entered by Blayne Onofre jacquie 11/22/23 14:40: REVIEWED MED REC DONE BY EMIL. Original Note: Pharmacy Consult ? Medication Reconciliation Pharmacy has completed the medication reconciliation. Spoke to patient to confirm med list. Patient states Vitamin D3 50 mcg is every SA. Patient also states she takes xanax 0.25 mg daily but only takes 1/2 tablet. she says it is from and old prescription.
--- NOTE | 2023-11-22 14:24 | PM.IMHP ---
History of Present Illness Date of Service: 11/22/23 <ALISIA White - Last Filed: 11/22/23 14:34> Attending physician on admission: Ary Loomis <ALISIA White - Last Filed: 11/22/23 14:34> Chief Complaint: afib rvr <ALISIA White - Last Filed: 11/22/23 14:34> 78-year-old female with history of paroxysmal atrial fibrillation recently diagnosed on 10/25 anticoagulated with Eliquis, hypertension, cataracts presented to the ED earlier today from Cardiology where she was undergoing exercise stress test. While performing the test, developed atrial fibrillation with RVR and was sent to the emergency department for further evaluation and management. There was initially suspicion for atrial fibrillation in September noted by her PCP who ordered a Holter monitor and started her on Eliquis 2.5 mg b.i.d. along with baby aspirin. Holter monitor did confirm paroxysmal atrial fibrillation and she was referred to Cardiology for further evaluation. Eliquis was then increased to 5 mg twice daily and was started on metoprolol which she states did not make her feel well so was switched to diltiazem 120 mg ER which she has been taking as prescribed. She states for several weeks she has been experiencing general weakness and fatigue. Denies any fevers, chills, recent illness, orthopnea, lower extremity edema, shortness of breath, palpitations, or chest pain. No lightheadedness or syncope. Since arrival, has been tachycardic to 144 and tachypneic but no hypotension. Hematology studies unremarkable. Renal function baseline, electrolyte levels normal. Troponin level undetectable. EKG shows atrial fibrillation with RVR, rate 124 without any acute ischemic changes. Did have echocardiogram performed on 11/09 showing normal LV systolic function with EF 65-70% with pseudonormal filling pattern and moderately dilated left atrium. There also calcific aortic valve changes with severe mitral calcification mitral regurgitation with normal RV systolic pressures. Ascending aorta is dilated at 4.3 cm. She was evaluated by Cardiology in the ED recommending low-dose Cardizem drip and initiation of amiodarone 400 mg twice daily. She was also given 15 mg IV push diltiazem. On exam, heart rate ranging 80s-90s but occasionally jumping as high as 130. She will be admitted for further management of atrial fibrillation with RVR. <ALISIA White - Last Filed: 11/22/23 14:34> Review of Systems Review of Systems: Yes all other systems are reviewed and are negative <ALISIA White - Last Filed: 11/22/23 14:34> [facility] Medical History: Medical History Paroxysmal atrial fibrillation Cataract HTN (hypertension) <ALISIA White - Last Filed: 11/22/23 14:34> Family History: Family History Father Myocardial infarct Mother Myocardial infarct Brother History of quadruple bypass <ALISIA White - Last Filed: 11/22/23 14:34> Social History: Social History Alcohol intake: current Alcohol intake frequency: holidays/special occasions only Alcohol type: wine Patient Tobacco Use Status: Never used Tobacco Smoked in Last 30 Days: No Use of substances other than those prescribed or required for medical reasons: No Advance Directives: No Advance Directives Information Provided: Yes Do you have a plan to hurt others: No Plan <ALISIA White - Last Filed: 11/22/23 14:34> Meds Allergies/Adverse reactions: Allergies Allergy/AdvReac Type Severity Reaction Status Date / Time epinephrine [EPINEPHRINE] Allergy Severe EPI MIXED Verified 11/22/23 10:26 IN A LOCAL ANES. lOW BP LIGHTHEADEDNES, bradycardia amoxicillin [AMOXICILLIN] Allergy Mild RASH Verified 11/22/23 10:26 penicillin V Allergy Unknown rash Verified 11/22/23 10:26 <ALISIA White - Last Filed: 11/22/23 14:34> Active Medications: Current Medications Amiodarone HCl (Amiodarone Hcl 200 Mg Tablet) 400 mg PO BID [facility] Last Admin: 11/22/23 13:05 Dose: 400 mg Diltiazem HCl 125 mg/ Sodium (Chloride) 125 mls @ 0 mls/hr IVCONT .Q0M [facility]; Protocol Last Admin: 11/22/23 12:39 Dose: 10 mg/hr, 10 mls/hr <ALISIA White - Last Filed: 11/22/23 14:34> Home medications: Home Medications ?Medication ?Instructions ?Recorded ?Confirmed ?Last Taken ?Type calcium carbonate 500 mg PO DAILY 10/26/23 11/22/23 11/22/23 History cholecalciferol (vitamin D3) 50 50 mcg PO SA 10/26/23 11/22/23 11/20/23 History mcg (2,000 unit) capsule flaxseed oil 1,000 mg capsule 1,000 mg PO BID 10/26/23 11/22/23 11/22/23 History magnesium glycinate 100 mg (as 100 mg PO DAILY 10/26/23 11/22/23 11/22/23 History glycinate) tablet multivitamin 1 tab PO DAILY 10/26/23 11/22/23 11/22/23 History simvastatin 20 mg tablet 20 mg PO DAILY 10/26/23 11/22/23 11/22/23 History lisinopril 20 mg tablet 10 mg PO DAILY 11/11/23 11/22/23 11/22/23 History alprazolam 0.25 mg tablet (Xanax) 0.125 mg PO DAILY PRN Anxiety 11/22/23 11/22/23 Unknown History <ALISIA White - Last Filed: 11/22/23 14:34> Physical Exam Vital Signs and Narrative: Vital Signs: Last Vital Signs Temp 97.7 F 11/22/23 10:24 Pulse 121 H 11/22/23 12:39 Resp 21 H 11/22/23 11:25 BP 132/83 11/22/23 12:39 Pulse Ox 97 11/22/23 11:25 O2 Del Method Room Air 11/22/23 11:25 BMI result Body Mass Index 28.4 <ALISIA White - Last Filed: 11/22/23 14:34> Constitutional - Awake and Alert, No apparent distress Eyes - PERRLA, EOMI Cardiovascular - S1S2, irregularly irregular, tachycardic, No edema Respiratory - Normal lung expansion, Normal respiratory effort, No respiratory distress, CTA bilaterally Gastrointestinal - NT / ND; +BS; No rebound or guarding Extremities - no calf tenderness bilaterally, no swelling Skin - Warm/Dry Neurological - Alert & oriented x3 Psychological - Appropriate affect <ALISIA White - Last Filed: 11/22/23 14:34> Results Labs CBC and Chem 7: 11/22/23 11:27 11/22/23 11:27 <ALISIA White - Last Filed: 11/22/23 14:34> Labs: Laboratory Results - last 24 hr 11/22/23 11:27 MCV 88.7 MCH 30.1 MCHC 33.9 RDW 13.5 Plt Count 281 MPV 8.4 L Immature Gran % (Auto) 0.3 Neut % (Auto) 57.8 Lymph % (Auto) 34.5 [place] % (Auto) 5.6 Eos % (Auto) 1.3 Baso % (Auto) 0.5 Lymph # (Auto) 2.7 [place] # (Auto) 0.4 Eos # (Auto) 0.1 Baso # (Auto) 0.0 Abs Immat Gran (auto) 0.02 Absolute Neuts (auto) 4.4 Absolute Nucleated RBC 0.000 Nucleated RBC % (auto) 0.0 Anion Gap 14 Estim Creat Clear Calc 60.9 Estimated GFR > 60 Random Glucose 89 Calcium 9.6 Total Bilirubin 0.2 AST 21 ALT 20 Alkaline Phosphatase 50 Troponin I High Sens < 2.7 Total Protein 7.0 Albumin 4.4 <ALISIA White - Last Filed: 11/22/23 14:34> Assessment and Plan (1) Atrial fibrillation with rapid ventricular response: Status: Acute <ALISIA White - Last Filed: 11/22/23 14:34> 78-year-old female with history of paroxysmal atrial fibrillation recently diagnosed on 10/25 anticoagulated with Eliquis, hypertension, cataracts admitted for further management of atrial fibrillation with rvr #Paroxysmal atiral fibrillation with rvr -Loaded with amiodarone 400 mg. Continue 400 mg b.i.d. x2 weeks, then transition to 200 mg daily -continue Eliquis 5 mg b.i.d. for anticoagulation -converted to NSR in the ED. Repeat EKG pending. Discontinue Cardizem drip -continue p.o. diltiazem -cardiology consult -cardiac diet -monitor on telemetry # hypertension -continue lisinopril, diltiazem # HLD -continue statin # anxiety -Xanax p.r.n. DVT prophylaxis-Eliquis Full code <ALISIA White - Last Filed: 11/22/23 14:34> 78-year-old female with history of paroxysmal atrial fibrillation recently diagnosed on 10/25 anticoagulated with Eliquis, hypertension, cataracts admitted for further management of atrial fibrillation with rvr Paroxysmal atiral fibrillation with rvr Loaded with amiodarone 400 mg. Continue 400 mg b.i.d. x2 weeks, then transition to 200 mg daily, Eliquis 5 mg b.i.d. for anticoagulation converted to NSR in the ED. Discontinue Cardizem drip,continue p.o. diltiazem,she took diltiazem today before coming to hospital. cardiology consult,cardiac diet monitor on telemetry hypertension-continue lisinopril, diltiazem HLD-continue statin anxiety-Xanax p.r.n. DVT prophylaxis-Eliquis Full code. This patient is seen and examined with APC. Lab imaging, EKG reviewed. Physical exam and assessment and plan coordinated in APCs note, Agree with the plan in addition: Patient converted into NSR, diltiazem drip stopped, continue home diltiazem, amiodarone as suggested by Cardiology. Continue Eliquis. Monitor on tele. <Ary Loomis MD - Last Filed: 11/22/23 15:27> Quality Stroke Does the patient have a stroke diagnosis?: No <ALISIA White - Last Filed: 11/22/23 14:34> VTE Prior VTE?: No <ALISIA White - Last Filed: 11/22/23 14:34> VTE Risk Level:: Medical - moderate - high <ALISIA White - Last Filed: 11/22/23 14:34> VTE Device Contraindication: Treatment Not Indicated <ALISIA White - Last Filed: 11/22/23 14:34> VTE Drug Contraindication: N/A - Med Ordered <ALISIA White - Last Filed: 11/22/23 14:34>
--- NOTE | 2023-11-22 15:02 | PC.NURSE ---
pt back in NS, EKG obtained and tiger connected to Kim CRUMP. plan to stop dilt gtt and transition to PO
[2023-11-22] MEDS: 0.9 % Sodium Chloride Flush 3 ML SYRINGE IVFLUSH ×2 (17:19→21:40)
--- NOTE | 2023-11-22 17:33 | PC.NURSE ---
PT notified this RN of chest pressure, sternal, reproducible. continues to be NS on the monitor. Kim CRUMP made aware. will order trop.
[2023-11-22 18:36] LABS: Troponin-I High Sensitivity 3.1 ng/L (<3.5-17.0)
--- NOTE | 2023-11-22 18:43 | PC.NURSE ---
pt up, ambulating to BR for BM with 1x assist
[2023-11-22] MEDS: Apixaban 5 MG TABLET PO (21:40)
[2023-11-22] MEDS: Acetaminophen 325 MG TABLET 650 MG PO (22:33)
[2023-11-23] VITALS: BP 139/72; PULSE 57; RESP 16; TEMP 36.4; O2SAT 98
[2023-11-23] MEDS: ALPRAZolam 0.25 MG TABLET 0.125 MG PO (02:03)
[2023-11-23 04:00] VITALS: BP 143/71; PULSE 61; RESP 18; TEMP 36.1; O2SAT 99
[2023-11-23 06:41] LABS: MANUAL DIFF FLAG NO
[2023-11-23 06:51] LABS: Basophils Percent Auto 0.6 % (0-2); Eosinophils Absolute Auto 0.1 X10*3/uL (0.0-0.4); Eosinophils Percent Auto 1.5 % (0-4); Hematocrit 36.5 % (37.0-47.0); Hemoglobin 12.4 g/dl (12.0-16.0); Imm Gran Abs Auto 0.02 X10*3/uL (0.00-0.03); Imm Gran Pct Auto 0.3 % (0.0-0.4); Lymphocytes Absolute Auto 2.5 X10*3/uL (1.2-4.9); Lymphocytes Percent Auto 37.1 % (20-40); Mean Corpuscular Hemoglobin 29.9 pg (27.0-33.0); Mean Platelet Volume 8.6 fL (9.4-12.3); Monocytes Absolute Auto 0.5 X10*3/uL (0.1-1.2); Monocytes Percent Auto 7.3 % (2-11); Neutrophils Absolute Auto 3.6 x10*3/uL (2.0-8.3); Neutrophils Percent Auto 53.2 % (45-73); Platelet Count 278 X10*3/uL (160-400); Red Blood Count 4.15 X10*6/uL (4.20-5.50); Red Cell Distribution Width 13.6 % (11.0-16.0); White Blood Count 6.8 X10*3/uL (4.8-10.8)
[2023-11-23 07:01] LABS: Anion Gap 11 (12-20); Blood Urea Nitrogen 13 mg/dL (9-16); Calcium 9.5 mg/dL (8.4-10.2); Carbon Dioxide 23 mmol/L (22-29); Chloride 105 mmol/L (96-108); Creatinine Clr Calc Pharmacy 60.9; Estimated Glomerular Filt Rate > 60; Glucose Random 88 mg/dL (60-115); Sodium 135 mmol/L (135-145)
[2023-11-23 07:39] VITALS: BP 135/71; PULSE 64; RESP 20; TEMP 36.7; O2SAT 98
[2023-11-23] MEDS: lisinopriL 10 MG TABLET PO (07:57)
[2023-11-23] MEDS: Multivitamin TABLET 1 TAB PO (07:57)
[2023-11-23] MEDS: Calcium Oyster Shell Elemental 500 MG TABLET PO (07:57)
[2023-11-23] MEDS: Apixaban 5 MG TABLET PO (07:57)
[2023-11-23] MEDS: dilTIAZem HCL CD 120 MG CAP.ER.DEG PO (07:57)
[2023-11-23] MEDS: Amiodarone HCL 200 MG TABLET 400 MG PO (07:58)
[2023-11-23] MEDS: Atorvastatin Calcium 10 MG TABLET PO (07:58)
[2023-11-23] MEDS: 0.9 % Sodium Chloride Flush 3 ML SYRINGE IVFLUSH (07:58)
--- NOTE | 2023-11-23 09:50 | MHC.CM.PN ---
Jaqueline, 11/23/23, Pt lives alone, is independent, does not have any home care services or use DME (does have a life line). She has a HCP at home, naming her children, we do not have a copy. Transportation home at DC will be either her friend or her son. DCP: home, Self care. CM to follow for DC needs.
--- NOTE | 2023-11-23 10:12 | PM.PNCARD ---
Subjective Subjective Date of Service: 11/23/23 Interval history: Back in sinus rhythm. Doing well. Physical Exam Vital Signs: Last Vital Signs Temp 98.0 F 11/23/23 07:39 Pulse 64 11/23/23 07:39 Resp 20 11/23/23 07:39 BP 135/71 11/23/23 07:39 Pulse Ox 98 11/23/23 07:39 O2 Del Method Room Air 11/23/23 07:39 BMI result Body Mass Index 28.4 GENERAL APPEARANCE: in no acute distress, pleasant. NECK: no carotid bruit, no jugular venous distention. SKIN: no suspicious lesions, warm and dry. HEART: no murmurs, regular rate and rhythm. LUNGS: clear to auscultation bilaterally. ABDOMEN: soft, nontender. EXTREMITIES: no edema. PERIPHERAL PULSES: equal. NEUROLOGIC: No gross deficits, AAO X 3 Objective Labs and Meds 11/23/23 05:48 11/23/23 05:48 Lab results: Laboratory Results - last 24 hr 11/22/23 11/22/23 11/23/23 11:27 18:06 05:48 WBC 7.7 6.8 RBC 4.32 4.15 L Hgb 13.0 12.4 Hct 38.3 36.5 L MCV 88.7 88.0 MCH 30.1 29.9 MCHC 33.9 34.0 RDW 13.5 13.6 Plt Count 281 278 MPV 8.4 L 8.6 L Immature Gran % (Auto) 0.3 0.3 Neut % (Auto) 57.8 53.2 Lymph % (Auto) 34.5 37.1 Crowley % (Auto) 5.6 7.3 Eos % (Auto) 1.3 1.5 Baso % (Auto) 0.5 0.6 Lymph # (Auto) 2.7 2.5 Crowley # (Auto) 0.4 0.5 Eos # (Auto) 0.1 0.1 Baso # (Auto) 0.0 0.0 Abs Immat Gran (auto) 0.02 0.02 Absolute Neuts (auto) 4.4 3.6 Absolute Nucleated RBC 0.000 0.000 Nucleated RBC % (auto) 0.0 0.0 Sodium 135 135 Potassium 4.0 4.0 Chloride 102 105 Carbon Dioxide 23 23 Anion Gap 14 11 L BUN 18 H 13 Creatinine 0.65 0.65 Estim Creat Clear Calc 60.9 60.9 Estimated GFR > 60 > 60 Random Glucose 89 88 Calcium 9.6 9.5 Total Bilirubin 0.2 AST 21 ALT 20 Alkaline Phosphatase 50 Troponin I High Sens < 2.7 3.1 Total Protein 7.0 Albumin 4.4 Progress Note: A&P Assessment and plan (1) Paroxysmal atrial fibrillation: Status: Acute (2) HTN (hypertension): Status: Acute Plan 78-year-old female presenting for paroxysmal atrial fibrillation. She was started on amiodarone yesterday and converted back to sinus rhythm. Continue amiodarone 400 mg twice a day for next 7 days and then she can be changed to 200 mg daily. Continue apixaban as before. Continue diltiazem. She was here for stress test when she developed the atrial fibrillation episode. We will arrange an outpatient stress test in a few weeks as she stabilizes. Time Spent With Patient Time: Total time managing care of this patient today ____ minutes. Progress Note: Quality Stroke Does the patient have a stroke diagnosis?: No Procedures Date of Service Date of Service: 11/23/23
[2023-11-23 11:03] VITALS: BP 124/73; PULSE 63; RESP 20; TEMP 36.7; O2SAT 95
--- NOTE | 2023-11-23 11:04 | P.DS_ITS ---
DS: Providers Provider Date of Service: 11/23/23 Date of admission: 11/22/23 14:31 Primary care physician: Vinicius Rojas MD Consults: 11/22/23 12:49 Consult to Cardiology Routine Consulting Provider: [facility] Reason for consultation: Afib 11/22/23 14:19 Consult to Cardiology Routine Consulting Provider: [facility] Reason for consultation: afib rvr Has provider been notified: Yes DS: Diagnosis Discharge Diagnosis (1) Atrial fibrillation with rapid ventricular response: Status: Acute DS: Summary Hospital Course Hospital Course: Chief Complaint: trial fibrillation with rapid ventricular response 78-year-old female with history of paroxysmal atrial fibrillation recently diagnosed on 10/25 anticoagulated with Eliquis, hypertension, cataracts presented to the ED earlier today from Cardiology where she was undergoing exercise stress test. While performing the test, developed atrial fibrillation with RVR and was sent to the emergency department for further evaluation and management. There was initially suspicion for atrial fibrillation in September noted by her PCP who ordered a Holter monitor and started her on Eliquis 2.5 mg b.i.d. along with baby aspirin. Holter monitor did confirm paroxysmal atrial fibrillation and she was referred to Cardiology for further evaluation. Eliquis was then increased to 5 mg twice daily and was started on metoprolol which she states did not make her feel well so was switched to diltiazem 120 mg ER which she has been taking as prescribed. She states for several weeks she has been experiencing general weakness and fatigue. Denies any fevers, chills, recent illness, orthopnea, lower extremity edema, shortness of breath, palpitations, or chest pain. No lightheadedness or syncope. Since arrival, has been tachycardic to 144 and tachypneic but no hypotension. Hematology studies unremarkable. Renal function baseline, electrolyte levels normal. Troponin level undetectable. EKG shows atrial fibrillation with RVR, rate 124 without any acute ischemic changes. Did have echocardiogram performed on 11/09 showing normal LV systolic function with EF 65-70% with pseudonormal filling pattern and moderately dilated left atrium. There also calcific aortic valve changes with severe mitral calcification mitral regurgitation with normal RV systolic pressures. Ascending aorta is dilated at 4.3 cm. She was evaluated by Cardiology in the ED recommending low-dose Cardizem drip and initiation of amiodarone 400 mg twice daily. She was also given 15 mg IV push diltiazem. On exam, heart rate ranging 80s-90s but occasionally jumping as high as 130. She will be admitted for further management of atrial fibrillation with RVR. Hospital course: The patient presented with atrial fibrillation (AFib) with rapid ventricular response (RVR). She was administered IV Cardizem in the emergency room, which successfully converted her to sinus rhythm. A cardiology evaluation recommended an amiodarone loading dose of 400 mg twice daily. She is currently maintaining sinus rhythm and will be discharged with the following medication plan: * Amiodarone: 400 mg twice daily for 1 week, followed by 200 mg daily thereafter. * Eliquis: Continue as prescribed. * Diltiazem: Continue as prescribed. Final diagnoses: Atrial fibrillation with rapid ventricular response. Time Attestation Discharge Coordination Time (in mins): 35 Quality: Safe Use of Opioids Does Pt have an Active Cancer Diagnosis on the Problem List?: No Quality: Stroke Does the patient have a stroke diagnosis?: No Physical Exam Vital Signs: Vital Signs: Last Vital Signs Temp 98.0 F 11/23/23 07:39 Pulse 64 11/23/23 07:39 Resp 20 11/23/23 07:39 BP 135/71 11/23/23 07:39 Pulse Ox 98 11/23/23 07:39 O2 Del Method Room Air 11/23/23 07:39 BMI result Body Mass Index 28.4 General: AO X 3, no acute distress Resp: CTA bilateral CVS: S1,S2,RRR GI: +BS, NT, no distention Skin: No rash Neuro: motor grossly intact Psych: appropriate affect DS: Data Data Completed and Pending Labs on day of discharge: Laboratory Results - last 24 hr 11/22/23 11/22/23 11/23/23 11:27 18:06 05:48 WBC 7.7 6.8 RBC 4.32 4.15 L Hgb 13.0 12.4 Hct 38.3 36.5 L MCV 88.7 88.0 MCH 30.1 29.9 MCHC 33.9 34.0 RDW 13.5 13.6 Plt Count 281 278 MPV 8.4 L 8.6 L Immature Gran % (Auto) 0.3 0.3 Neut % (Auto) 57.8 53.2 Lymph % (Auto) 34.5 37.1 [place] % (Auto) 5.6 7.3 Eos % (Auto) 1.3 1.5 Baso % (Auto) 0.5 0.6 Lymph # (Auto) 2.7 2.5 [place] # (Auto) 0.4 0.5 Eos # (Auto) 0.1 0.1 Baso # (Auto) 0.0 0.0 Abs Immat Gran (auto) 0.02 0.02 Absolute Neuts (auto) 4.4 3.6 Absolute Nucleated RBC 0.000 0.000 Nucleated RBC % (auto) 0.0 0.0 Sodium 135 135 Potassium 4.0 4.0 Chloride 102 105 Carbon Dioxide 23 23 Anion Gap 14 11 L BUN 18 H 13 Creatinine 0.65 0.65 Estim Creat Clear Calc 60.9 60.9 Estimated GFR > 60 > 60 Random Glucose 89 88 Calcium 9.6 9.5 Total Bilirubin 0.2 AST 21 ALT 20 Alkaline Phosphatase 50 Troponin I High Sens < 2.7 3.1 Total Protein 7.0 Albumin 4.4 Discharge Plan Discharge Anticipated Discharge Date/Time: 11/23/23 10:56 Patient Disposition: Home, Self-Care Discharge Diagnosis: Paroxysmal atrial fibrilation Referrals: Vinicius Rojas MD [Primary Care Provider] - 1 Week Discharge Medications: New amiodarone 200 mg Tablet See Rx Instructions .ROUTE .COMPLEX Qty: 90 0RF Rx Instructions: take 2 tabs twice daily for 6 days, then take 1 tab twice daily thereafter Continued lisinopril 20 mg tablet 10 mg PO DAILY diltiazem HCl [Cardizem CD] 120 mg capsule,extended release 24hr 120 mg PO DAILY Qty: 30 5RF alprazolam [Xanax] 0.25 mg Tablet 0.125 mg PO DAILY PRN (Reason: Anxiety) simvastatin 20 mg tablet 20 mg PO DAILY calcium carbonate 500 mg calcium (1,250 mg) tablet 500 mg PO DAILY flaxseed oil 1,000 mg capsule 1,000 mg PO BID Rx Instructions: administer with meals multivitamin Tablet 1 tab PO DAILY magnesium glycinate 100 mg tablet 100 mg PO DAILY cholecalciferol (vitamin D3) 50 mcg (2,000 unit) capsule 50 mcg PO SA Eliquis 5 mg tablet 5 mg PO BID Qty: 60 5RF Discharge Orders: Discharge Order (Routine); Ordered 11/23/23 Ordered By: Bo Mlapah Diet: Advance to usual diet Activity on Discharge: As tolerated Stand Alone Forms: Patient Portal Discharge page Print Language: Eritrean Care Plan Goals: Control of atrial fibrilation Health Concerns: Paroxysmal atrial fibrillation Plan of Treatment: take amiodarone 400 mg twice daily for 6 more days then 200 mg daily thereafter. Continue taking other medication that before follow-up if your heart doctor follow-up with your primary care doctor within a week, call for appointment. Assessment: See above
[2023-11-23 12:35] LABS: Magnesium 2.2 mg/dL (1.6-2.6)
== END 2023-11-23 13:46 | disposition home or self-care (01) ==
LOC: HO.ED 12:41 → HO.EDOVER 14:49 → HO.IMC 19:49
PROVIDERS: Internal Medicine; Admitting Provider Physician Assistant; Emergency Provider Emergency Medicine; PCP Internal Medicine; Visit Provider Internal Medicine
DX: I48.20 Chronic atrial fibrillation, unspecified (principal); R00.2 Palpitations; I10 Essential (primary) hypertension; H26.9 Unspecified cataract; Z79.01 Long term (current) use of anticoagulants; Z79.899 Other long term (current) drug therapy
CPT/HCPCS: 36415; 80048; 80053; 83735; 84484; 85025; 93005; 96365; 96366; 96376; 99222; 99285

== ENCOUNTER → 2023-11-22 10:25 | Outpatient (BNV) | payer MEDICARE, SELFPAY | PROVIDERS: Emergency Provider Emergency Medicine; PCP Internal Medicine; Visit Provider Internal Medicine Cardiovascular Disease | DX: I48.0 Paroxysmal atrial fibrillation (principal); I10 Essential (primary) hypertension | CPT/HCPCS: 93010; 93016; 93018; 99223; 99233 ==

== ENCOUNTER → 2023-11-22 14:31 | Outpatient (BNV) | payer MEDICARE, SELFPAY | PROVIDERS: Admitting Provider Physician Assistant; Emergency Provider Emergency Medicine; PCP Internal Medicine; Visit Provider Physician Assistant | DX: I48.91 Unspecified atrial fibrillation (principal) | CPT/HCPCS: 99223; 99239 ==

== ENCOUNTER 2023-11-30 15:06 | Outpatient (AMB) | payer MEDICARE, SELFPAY ==
--- NOTE | 2023-11-30 15:09 | MHC.OFFVIS ---
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 lOW BP LIGHTHEADEDNES, bradycardia amoxicillin [AMOXICILLIN] Allergy (Mild, Verified 11/22/23 10:26) RASH penicillin V Allergy (Unknown, Verified 11/22/23 10:26) rash Medication List - Last Reconciled 11/30/23 by Bipin Caro MD alprazolam (Xanax) 0.125 mg (1/2 x 0.25 mg) PO DAILY amiodarone 200 mg PO BID apixaban (Eliquis) 5 mg PO BID calcium carbonate 500 mg PO DAILY cholecalciferol (vitamin D3) 50 mcg PO SA diltiazem HCl CD (Cardizem CD) 120 mg PO DAILY flaxseed oil 1,000 mg PO BID lisinopril 10 mg PO DAILY magnesium glycinate 100 mg PO DAILY multivitamin 1 tab PO DAILY simvastatin 20 mg PO DAILY HPI Comments Details: Casey comes for follow-up after recent hospitalization with atrial fibrillation rapid ventricular response with significant symptoms. She was then started on amiodarone therapy and comes for follow-up. She could not tolerate 400 mg b.i.d. of amiodarone as she had nausea and poor appetite. Currently on 200 mg b.i.d.. She says she feels a lot better. She also did not tolerate metoprolol therapy. Also atrial fibrillation was not controlled on Cardizem therapy. She also takes antianxiety pills more frequently. She is currently taking Cardizem 120 mg daily. Also taking her oral anticoagulation with Eliquis. No heart failure symptoms. No lightheadedness, syncope. No neurologic symptoms or bleeding issues [facility] Medical History (Updated 12/04/23 @ 14:19 by Bipin Caro MD) HTN (hypertension) Paroxysmal atrial fibrillation Cataract Family History Father Myocardial infarct Mother Myocardial infarct Brother History of quadruple bypass Social History Household Members: None Housing: House Do you presently have visiting nurse or other home services: No Alcohol intake: current Alcohol intake frequency: holidays/special occasions only Alcohol type: wine Patient Tobacco Use Status: Never used Tobacco service: No Review of Systems Const Denies chills, Denies fatigue, Denies fever(s), Denies frequent falls, Denies weakness, Denies weight gain and Denies weight loss ENT Denies dizziness Card Denies chest pain, Denies leg edema, Denies lightheadedness, Denies palpitations, Denies dyspnea, Denies dyspnea on exertion, Denies orthopnea and Denies other (loss of consciousness) Resp Denies cough, Denies dyspnea and Denies dyspnea on exertion GI Denies hematochezia and Denies change in stool character Musc Denies abnormal gait, Denies muscle weakness, Denies numbness, Denies radiating pain into limb and Denies tingling Neuro Denies abnormal gait, Denies dizziness, Denies frequent falls, Denies numbness, Denies tingling and Denies weakness Endo Denies fatigue and Denies palpitations Physical Exam Vital Signs: Last Vital Signs Pulse 64 11/30/23 15:12 BP 120/68 11/30/23 15:12 BMI result Body Mass Index 27.9 Const General: cooperative, comfortable, no acute distress, alert, awake, Physically active and well groomed Nutritional Appearance: overweight Orientation/consciousness: patient oriented x3 Limitations: no limitations HEENT Head: Yes normocephalic and Yes atraumatic Neck Neck: Yes trachea midline, Yes supple and Yes no JVD Resp Effort & Inspection: normal respiratory effort Auscultation: clear to auscultation bilaterally Cardio Jugular venous distension: no JVD Palpation: normal PMI Rate: regular rate Rhythm: regular rhythm Heart sounds: S1 normal heart sound present, S2 normal heart sound present, no click, no gallops, no murmurs and no rubs GI Auscultation: normal bowel sounds Skin General skin exam: no rashes or lesions noted Neuro General: patient oriented x3 and no focal motor deficits Extrem General: Yes no clubbing, cyanosis or edema Psych Appearance: grossly normal Affect: Anxious affect present Office Procedures EKG Details: EKG shows normal sinus rhythm nonspecific ST abnormality [id number], Complete Assessment & Plan Assessment & Plan (1) Paroxysmal atrial fibrillation: Code(s): I48.0 - Paroxysmal atrial fibrillation Category: Medical Plan: Highly symptomatic paroxysmal atrial fibrillation currently controlled on amiodarone therapy with moderate left atrial enlargement suggestive underlying structural heart issues. This will require antiarrhythmic drug therapy in the future. She is highly symptomatic and I think she would benefit from rhythm control approach in the long run. This was discussed with her. Continue Cardizem therapy. Continue full oral anticoagulation with apixaban. Continue follow through with stress testing rule out myocardial ischemia as eventually will probably to switch her to an alternative antiarrhythmic agent such as flecainide. Continue amiodarone for at least 3 months. Advised to continue loading with amiodarone 200 mg b.i.d. for total 4 weeks followed by 200 mg daily. She understands and agrees. Avoidance of stimulants was discussed. Stress mitigation strategies were discussed. Advised to participate in physical activity as tolerated. (2) HTN (hypertension): Code(s): I10 - Essential (primary) hypertension Category: Medical Plan: Hypertension which is currently well optimized advised to monitor blood pressure at home maintain a log. Goal blood pressure less than 130/84. Low-salt diet was discussed. Continue current therapy. Follow up in the clinic in Medications: Changed From amiodarone take 2 tabs twice daily for 6 days, then take 1 tab twice daily thereafter 90 tabs 0RF To amiodarone 200 mg orally 2 times a day; 200 mg PO BID Coding Level of Care Code Est Pt Level 4 (93556) Diagnoses Paroxysmal atrial fibrillation I48.0 HTN (hypertension) I10 CPT Codes EKG - CPT: 81602-[id number], Complete ([id number])
[2023-11-30 15:12] VITALS: BP 120/68; PULSE 64; BMI 27.9
== END 2023-11-30 15:59 | disposition home or self-care (01) ==
PROVIDERS: PCP Internal Medicine; Visit Provider Internal Medicine Cardiovascular Disease
DX: I48.0 Paroxysmal atrial fibrillation (principal); I10 Essential (primary) hypertension
CPT/HCPCS: 93010; 99214

== ENCOUNTER → 2023-11-30 15:06 | Outpatient (BNVA) | payer MEDICARE, SELFPAY | PROVIDERS: PCP Internal Medicine; Visit Provider Internal Medicine Cardiovascular Disease | DX: I48.0 Paroxysmal atrial fibrillation (principal); I10 Essential (primary) hypertension; R94.31 Abnormal electrocardiogram [ECG] [EKG] | CPT/HCPCS: 93005; 99212 ==

== ENCOUNTER → 2023-12-16 10:20 | Outpatient (REF) | payer MEDICARE, SELFPAY ==
--- NOTE | ~2023-12-16 | NM_ITS ---
Lexiscan Myocardial perfusion study Indication: Chest pain. History of atrial fibrillation to evaluate for myocardial ischemia Technique: The patient was brought in for a Lexiscan perfusion study on 12/16/2023 and was injected 0.4 mg of Lexiscan intravenously. Within a minute of this injection 25 mCi of sestamibi was given intravenously. Images were obtained using the SPECT gamma camera interlaced with the gating device. Images were obtained in supine position. Resting perfusion study was performed on 12/17/2023. Patient was administered 25 mCi of sestamibi intravenously at rest. Images were then obtained in supine position. Images were obtained without without CT attenuation. Total DLP 118 mGy-cm. I was unable to read this study to 12/20/2023 due to technical issues Images were processed with the software and compared side to side in short axis, horizontal long axis and vertical long axis views. Findings: The stress perfusion study showed nonattenuated images show symmetrical radiotracer uptake in the apex as well as mildly increased uptake in the septum and mildly reduced uptake in the lateral wall of the LV myocardium. Attenuation corrected images show moderately reduced uptake in the apex and moderately reduced uptake in the distal septum of the LV myocardium.. The gated study shows normal LV systolic function with calculated LVEF of 77%. LV cavity is normal in size. The gated study shows normal systolic wall thickening and contraction of segments. Resting study shows nonattenuated images show improved uptake in the apex as well as the septum and lateral wall of the myocardium. Attenuation corrected images show also improved uptake in the apex of the distal septum.. Gating at rest reveals normal systolic wall motion with ejection fraction at 69%. The findings are consistent with mild intensity reversible defect of the distal septum and apex suggestive of ischemia. NM/NM cardiolite stress test Impression: 1. Myocardial perfusion imaging study shows mild intensity moderate-sized distal septal and apical ischemia in mid to distal LAD territory 2. Gated LVEF is 69% 3. Transient ischemic dilatation not present EKG is nondiagnostic for ischemia Electronically signed by: Bipin Caro MD 12/20/2023 05:00 PM EDT
--- NOTE | 2023-12-16 10:50 | CA_ITS ---
Acquisition Time: 2023-12-16 10:42:38 Total Exercise Time: 00:02:00 Test Indications: Abnormal ECG AFIB Medications: SEE H Protocol: LEXISCAN Max HR: 081 BPM 57% of Pred: 140 BPM Max BP: 170/088 mmHG Max Work Load: 1.0 METS Pharmacological stress test with Lexiscan injection while sitting, with mild SOB, no chest discomfort, without arrhythmias, with hypotensive response to injection (lowest 116/60, mild dizziness), with nondiagnoisitic EKGs. Aminophylline 75mg IVp given to reverse Lexiscan. Nuclear images pending. Test reviewed with Dr. Poole. Referred By: Maria Lackey Overread By: Maria Lackey
== END ==
LOC: HO.CARD 10:20
PROVIDERS: PCP Internal Medicine; Visit Provider Internal Medicine Cardiovascular Disease
DX: R07.9 Chest pain, unspecified (principal); I48.0 Paroxysmal atrial fibrillation
CPT/HCPCS: 78452; 93017; A9500; J0280; J2785

== ENCOUNTER → 2023-12-16 10:50 | Outpatient (BNV) | payer MEDICARE, SELFPAY | PROVIDERS: PCP Internal Medicine; Visit Provider Nurse Practitioner | DX: R06.02 Shortness of breath (principal); R42 Dizziness and giddiness | CPT/HCPCS: 78452; 93016; 93018 ==

== ENCOUNTER 2024-01-10 15:00 | Outpatient (AMB) | payer MEDICARE, SELFPAY ==
[2024-01-10 15:16] VITALS: BP 142/70; PULSE 65
--- NOTE | 2024-01-10 15:16 | MHC.OFFVIS ---
Vital Signs 01/10/24 15:16 Height 51 ft Weight 153 lb 14.122 oz BMI 0.3 BP 142/70 H Blood Pressure Location Lt brachial Position Sitting Pulse 65 Pulse Source Monitor Intake Visit Reasons: 4 wk s/p stress/ holter/ NS Lifts And Cranes Inspector Required: No Assessment Specialist: Assessment Specialist Present Allergies epinephrine [EPINEPHRINE] Allergy (Severe, Verified 01/10/24 15:18) EPI MIXED IN A LOCAL ANES. lOW BP LIGHTHEADEDNES, bradycardia amoxicillin [AMOXICILLIN] Allergy (Mild, Verified 01/10/24 15:18) RASH penicillin V Allergy (Unknown, Verified 01/10/24 15:18) rash metoprolol Adverse Reaction (Intermediate, Uncoded 01/10/24 17:44) Fatigued Medication List - Last Reconciled 01/10/24 by CARLA Dailey alprazolam (Xanax) 0.125 mg (1/2 x 0.25 mg) PO DAILY amiodarone 200 mg PO DAILY 90 days apixaban (Eliquis) 5 mg PO BID calcium carbonate 500 mg PO BID cholecalciferol (vitamin D3) 50 mcg PO SA diltiazem HCl CD (Cardizem CD) 120 mg PO DAILY flaxseed oil 1,000 mg PO BID lisinopril 10 mg PO DAILY magnesium glycinate 100 mg PO DAILY multivitamin 1 tab PO DAILY simvastatin 20 mg PO DAILY HPI HPI 4 wk s/p stress/ holter/ NS: Details: Casey is an 78-year-old female with past medical history of hypertension, symptomatic paroxysmal AFib, now on amiodarone who recently a nuclear stress test and now presents for follow-up. Today she reports that she has not had any known recurrent atrial fibrillation. She has not felt any of the anxious feeling in her chest and no heart palpitations. She is very pleased with how amiodarone is working on her. She continues on carvedilol. She tells me she did not do well with metoprolol and describes symptoms of fatigue, nausea and lightheadedness. I will add metoprolol to her adverse reaction list. She has not had any breathing issues at rest, no PND, orthopnea or edema. She does have some mild shortness of breath with exertion. She believes she may be deconditioned as she was not very active over the summer due to all her medication changes and the very hot weather. She has been walking more recently and does about a mile per day, and usually total 8000 steps per day. She does not get any chest discomfort brought on by her walking. No recent issues with lightheadedness, no presyncope, syncope, falls. No bleeding issues reported. Expresses some concern about not being called with her test results in an organized and timely manner. Daughter is present. [facility] Medical History HTN (hypertension) Paroxysmal atrial fibrillation Cataract Family History Father Myocardial infarct Mother Myocardial infarct Brother History of quadruple bypass Social History Household Members: None Housing: House Do you presently have visiting nurse or other home services: No Alcohol intake: current Alcohol intake frequency: holidays/special occasions only Alcohol type: wine Patient Tobacco Use Status: Never used Tobacco service: No Review of Systems Const All systems reviewed & are unremarkable except as noted in HPI and below ENT Denies dizziness Card Denies chest pain, Denies chest pain at rest, Denies chest pain with activity, Denies rapid heart rate, Denies pedal edema, Denies edema, Denies leg edema, Denies lightheadedness, Denies palpitations, Reports dyspnea, Reports dyspnea on exertion and Denies orthopnea Resp Denies cough, Reports dyspnea and Reports dyspnea on exertion GI Denies hematochezia and Denies change in stool character Musc Denies abnormal gait, Denies limited range of motion, Denies muscle cramps, Denies muscle weakness, Denies numbness, Denies radiating pain into limb, Denies stiffness and Denies tingling Neuro Denies abnormal gait, Denies dizziness, Denies numbness and Denies tingling Endo Denies palpitations Physical Exam Vital Signs: Last Vital Signs Pulse 65 01/10/24 15:16 BP 142/70 H 01/10/24 15:16 BMI result Body Mass Index 0.3 Const General: cooperative, healthy appearing, comfortable and no acute distress Orientation/consciousness: patient oriented x3 Neck Neck: Yes normal visual inspection and Yes no JVD Resp Effort & Inspection: normal respiratory effort Auscultation: clear to auscultation bilaterally, no crackles, no rales, no rhonchi and no wheezes Cardio Jugular venous distension: no JVD Rate: regular rate Rhythm: regular rhythm Heart sounds: S1 normal heart sound present, S2 normal heart sound present, no murmurs and no rubs Neuro General: patient oriented x3 Extrem General: Yes normal to inspection, No no pedal edema and No calf tenderness Psych Appearance: grossly normal Mental Status: mental status grossly normal Speech and movement: Normal speech and movement present Office Procedures EKG Details: Today read by me, normal sinus rhythm, nonspecific ST abnormality, rate 65, QTC 461 milliseconds [id number], Complete Assessment & Plan Assessment & Plan (1) Paroxysmal atrial fibrillation: Code(s): I48.0 - Paroxysmal atrial fibrillation Category: Medical Plan: History of paroxysmal atrial fibrillation, symptomatic. Now on amiodarone and diltiazem. She did not feel well with metoprolol and it was previously discontinued. EKG done today shows normal sinus rhythm, nonspecific ST abnormality, rate 65, QTC 461 milliseconds. She denies any recent recurrent heart palpitations or known AFib. She is on Eliquis for anticoagulation. No bleeding issues reported. Will update labs to assess for amiodarone tolerance: LFTs, TSH. Continue current treatment. (2) Abnormal nuclear stress test: Code(s): R94.39 - Abnormal result of other cardiovascular function study Category: Medical Plan: Nuclear stress test was done as part of cardiac workup with her AFib. Done on 12/16/2023 and shows mild intensity, moderate size distal, septal and apical ischemia in the mid to distal LAD territory. Patient informed of results, findings explained. She has no clear anginal symptoms. CTA of the coronary arteries has already been ordered by Dr. Caro. She will need a BMP prior to that test. Will notify our scientific technical writer that she has not heard from [facility] as of yet. Signs and symptoms of angina reviewed with her. Emergency care if ever needed for symptoms. (3) HTN (hypertension): Code(s): I10 - Essential (primary) hypertension Category: Medical Plan: Mild elevation today however other recent blood pressures appear to be in good range. No med changes made at this time. Plan Time spent on chart review, documentation, interview and assessment Orders: Orders Liver Panel Today I48.0 - Paroxysmal atrial fibrillation TSH reflex Free T4 Today I48.0 - Paroxysmal atrial fibrillation Basic Metabolic Panel Today I10 - Essential (primary) hypertension, I48.0 - Paroxysmal atrial fibrillation Coding Level of Care Code Est Pt Level 4 (67014) Diagnoses Paroxysmal atrial fibrillation I48.0 Abnormal nuclear stress test R94.39 HTN (hypertension) I10 CPT Codes EKG - CPT: 41611-Kfsaltdaqnbvtugxm, Complete ([id number]) Time Spent (min) 34
== END 2024-01-10 16:15 | disposition home or self-care (01) ==
PROVIDERS: PCP Internal Medicine; Visit Provider Nurse Practitioner Family
DX: I48.0 Paroxysmal atrial fibrillation (principal); R94.39 Abnormal result of other cardiovascular function study; I10 Essential (primary) hypertension
CPT/HCPCS: 93010; 99214

== ENCOUNTER → 2024-01-10 15:00 | Outpatient (BNVA) | payer MEDICARE, SELFPAY | PROVIDERS: PCP Internal Medicine; Visit Provider Nurse Practitioner Family | DX: I10 Essential (primary) hypertension (principal); I48.0 Paroxysmal atrial fibrillation; R94.39 Abnormal result of other cardiovascular function study | CPT/HCPCS: 93005; 99212 ==

== ENCOUNTER 2024-02-28 09:54 | Outpatient (REF) | payer MEDICARE, SELFPAY ==
--- NOTE | ~2024-02-28 | MM_ITS ---
EXAMINATION: MM SCREENING DIGITAL BREAST TOMOSYNTHESIS, BILATERAL CLINICAL INFORMATION: Screening. Asymptomatic. COMPARISON: Mammography: Comparison is made with available priors TECHNIQUE: Digital breast mammography with tomosynthesis is performed in both the craniocaudal and mediolateral oblique views along with computer-aided detection (CAD). FINDINGS: There are scattered areas of fibroglandular density (ACR BI-RADS breast composition Category b). There are no significant masses, abnormal calcifications, or other abnormalities. MM/MM tomosynthesis screening BI IMPRESSION: No mammographic evidence of malignancy. ASSESSMENT: BI-RADS BI-RADS 1 - Negative RECOMMENDATION: Routine annual mammography screening. 1 year F/U This examination should not preclude the clinical evaluation of a suspicious palpable abnormality. This patient's information was entered into a reminder system with a target due date for their next mammogram. Electronically signed by: Jojo White DO 03/07/2024 02:05 PM NIA
== END 2024-02-28 09:55 | disposition home or self-care (01) ==
LOC: HO.MAMMO 09:54
PROVIDERS: PCP Internal Medicine; Visit Provider Internal Medicine
DX: Z12.31 Encounter for screening mammogram for malignant neoplasm of breast (principal)
CPT/HCPCS: 77063; 77067

== ENCOUNTER → 2024-02-28 10:00 | Outpatient (BNV) | payer MEDICARE, SELFPAY | PROVIDERS: PCP Internal Medicine; Visit Provider Internal Medicine | DX: Z12.31 Encounter for screening mammogram for malignant neoplasm of breast (principal) | CPT/HCPCS: 77063; 77067 ==

== ENCOUNTER 2024-02-28 11:02 | Outpatient (REF) | payer MEDICARE, SELFPAY ==
[2024-02-28 14:22] LABS: Alanine Aminotransferase 40 U/L (0-31); Albumin Level 4.2 g/dL (3.5-5.0); Alkaline Phosphatase 56 U/L (39-117); Anion Gap 12 (12-20); Aspartate Amino Transferase 31 U/L (5-31); Bilirubin Direct 0.1 mg/dL (0.0-0.5); Bilirubin Total 0.3 mg/dL (0.0-1.0); Blood Urea Nitrogen 17 mg/dL (9-16); Calcium 9.7 mg/dL (8.4-10.2); Carbon Dioxide 28 mmol/L (22-29); Chloride 105 mmol/L (96-108); Estimated Glomerular Filt Rate > 60; Glucose Random 66 mg/dL (60-115); Sodium 141 mmol/L (135-145); Total Protein 6.9 g/dL (6.5-8.0)
[2024-02-28 14:37] LABS: TSH reflex Free T4 11.31 uIU/mL (0.32-4.0)
[2024-02-28 17:50] LABS: Free T4 (Free Thyroxine) 0.73 ng/dL (0.71-1.85)
== END 2024-02-28 11:03 | disposition home or self-care (01) ==
LOC: HO.HMGCLDS 11:02
PROVIDERS: PCP Internal Medicine; Visit Provider Nurse Practitioner Family
DX: I48.0 Paroxysmal atrial fibrillation (principal); I10 Essential (primary) hypertension
CPT/HCPCS: 36415; 80048; 80076; 84439; 84443

== ENCOUNTER 2024-05-02 14:54 | Outpatient (AMB) | payer MEDICARE, SELFPAY ==
[2024-05-02 14:59] VITALS: BP 120/78; PULSE 59; BMI 28.7
--- NOTE | 2024-05-02 14:59 | MHC.OFFVIS ---
Vital Signs 05/02/24 14:59 Height 5 ft 1 in Weight 152 lb 1.903 oz BMI 28.7 BP 120/78 Blood Pressure Location Lt brachial Position Sitting Pulse 59 Intake Visit Reasons: 3 mth f/up Intake Note: 3 month follow-up feeling good Events And Promotions Assistant Required: No Allergies epinephrine [EPINEPHRINE] Allergy (Severe, Verified 01/10/24 15:18) EPI MIXED IN A LOCAL ANES. lOW BP LIGHTHEADEDNES, bradycardia amoxicillin [AMOXICILLIN] Allergy (Mild, Verified 01/10/24 15:18) RASH penicillin V Allergy (Unknown, Verified 01/10/24 15:18) rash metoprolol Adverse Reaction (Intermediate, Uncoded 01/10/24 17:44) Fatigued Medication List - Last Reconciled 05/02/24 by Bipin Caro MD alprazolam (Xanax) 0.125 mg (1/2 x 0.25 mg) PO DAILY amiodarone 200 mg PO DAILY 90 days apixaban (Eliquis) 5 mg PO BID calcium carbonate 500 mg PO BID cholecalciferol (vitamin D3) 50 mcg PO SA diltiazem HCl CD 120 mg PO DAILY flaxseed oil 1,000 mg PO BID levothyroxine 25 mcg PO DAILY lisinopril 10 mg PO DAILY magnesium glycinate 100 mg PO DAILY multivitamin 1 tab PO DAILY simvastatin 20 mg PO DAILY HPI Comments Details: Casey comes for follow-up. She has not had any significant episodes of atrial fibrillation. She is taking all her medications. Blood pressure once in a while is minimally elevated otherwise doing well. No exertional chest pain. No shortness of breath, orthopnea, PND. Denies any bleeding issues or neurologic events. Takes all her medications regularly. [facility] Medical History HTN (hypertension) Paroxysmal atrial fibrillation Cataract Family History Father Myocardial infarct Mother Myocardial infarct Brother History of quadruple bypass Social History Household Members: None Housing: House Do you presently have visiting nurse or other home services: No Alcohol intake: current Alcohol intake frequency: holidays/special occasions only Alcohol type: wine Patient Tobacco Use Status: Never used Tobacco service: No Review of Systems Const Denies chills, Denies fatigue, Denies fever(s), Denies frequent falls, Denies weakness, Denies weight gain and Denies weight loss ENT Denies dizziness Card Denies chest pain, Denies leg edema, Denies lightheadedness, Denies palpitations, Denies dyspnea, Denies dyspnea on exertion, Denies orthopnea and Denies other (loss of consciousness) Resp Denies cough, Denies dyspnea and Denies dyspnea on exertion GI Denies hematochezia and Denies change in stool character Musc Denies abnormal gait, Denies muscle weakness, Denies numbness, Denies radiating pain into limb and Denies tingling Neuro Denies abnormal gait, Denies dizziness, Denies frequent falls, Denies numbness, Denies tingling and Denies weakness Endo Denies fatigue and Denies palpitations Physical Exam Vital Signs: Last Vital Signs Pulse 59 05/02/24 14:59 BP 120/78 05/02/24 14:59 BMI result Body Mass Index 28.7 Const General: cooperative, healthy appearing, comfortable and no acute distress Orientation/consciousness: patient oriented x3 Neck Neck: Yes normal visual inspection and Yes no JVD Resp Effort & Inspection: normal respiratory effort Auscultation: clear to auscultation bilaterally, no crackles, no rales, no rhonchi and no wheezes Cardio Jugular venous distension: no JVD Rate: regular rate Rhythm: regular rhythm Heart sounds: S1 normal heart sound present, S2 normal heart sound present, no murmurs and no rubs Neuro General: patient oriented x3 Extrem General: Yes normal to inspection, No no pedal edema and No calf tenderness Psych Appearance: grossly normal Mental Status: mental status grossly normal Speech and movement: Normal speech and movement present Office Procedures EKG Details: EKG shows sinus bradycardia with low-voltage QRS [id number], Complete Assessment & Plan Assessment & Plan (1) Paroxysmal atrial fibrillation: Code(s): I48.0 - Paroxysmal atrial fibrillation Category: Medical Plan: Highly symptomatic paroxysmal atrial fibrillation which has remained suppressed on current amiodarone therapy. She has done very well with rhythm control approach will continue pursue rhythm control approach. Will reduce amiodarone 200 mg daily to reduce long-term toxicity. Eventually he remains in sinus rhythm will switch her to flecainide therapy given nonobstructive CAD. Continue full oral anticoagulation with Eliquis 5 mg b.i.d.. Avoidance of stimulants such as caffeine and alcohol was discussed. Continue aggressive blood pressure control. (2) CAD (coronary artery disease): Comment: Nonobstructive by coronary CTA Code(s): I25.10 - Atherosclerotic heart disease of iliamna coronary artery without angina pectoris Category: Medical Plan: CAD nonobstructive. Not a reason for her chest pain syndrome. Continue aggressive risk factor modification. Blood pressure is well optimized. Continue statin therapy with target goal LDL less than 70 mg/dL. (3) HTN (hypertension): Code(s): I10 - Essential (primary) hypertension Category: Medical Plan: Hypertension with once in a while blood pressure is slightly elevated. Continue current therapy with lisinopril and Cardizem. Low-salt diet was discussed. Stress mitigation strategies was discussed. Target goal blood pressure generally below 130/84. Will follow up in the clinic in 6 months time, sooner p.r.n.. Thank you for allowing me to partake in his care Medications: Changed From amiodarone 200 mg orally daily; 200 mg PO DAILY 90 days 90 tabs 1RF To amiodarone 200 mg orally daily; 100 mg (1/2 x 200 mg) PO DAILY 45 tabs 1RF 90 days Coding Level of Care Code Est Pt Level 4 (71636) Complex EM visit Add On G2211 Diagnoses Paroxysmal atrial fibrillation I48.0 CAD (coronary artery disease) I25.10 HTN (hypertension) I10 CPT Codes EKG - CPT: 70043-Likiwrnqtdreshbcp, Complete ([id number])
--- OUTSIDE RECORDS SUMMARY | 2024-05-02 18:44 | XMS_ITS ---
Author Organization [facility] Address [address] [facility] [place] [address] Care Team Providers Care Sheep Or Calf Grader Name Role Phone Vinicius Rojas MD Primary Care Provider Unavaila Brandon Alberto Unavailable [phone] REASON FOR VISIT error Encounters Encounter Location Date Provider Diagnosis [address] [address] 03/09/2024 Brandon Sevilla Plan Of Treatment No Information Progress Notes * Casey CH CDOB:[birth year] (78 yo F)Acc No.[id number]:03/09/2024 Patient:?Mary CHnisha Matthews :1945???Age:78 Y???Sex:Female Address[address] [place], [place] [address], [address] * true * Date:? Generated for Printi ng/Fajuliang/eTransmitting on:?05/02/2024 06:44 PM EST
--- OUTSIDE RECORDS SUMMARY | 2024-05-02 18:44 | XMS_ITS | Patient Health Record ---
Author Organization [facility] Address [address] [facility] [place] [address] Care Team Providers Care Printing Pressman Name Role Phone Vinicius Rojas MD Primary Care Provider Unavaila Brandon Alberto Unavailable [phone] Luci Adams Unavailable [phone] Allergies Allergen (clinical drug ingredient) Drug/Non Drug Allergy documented on EMR Reaction Allergy Type Onset Date Status epinephrine combined with local anesthetics (uncoded) Unknown Allergy Active amoxicillin Amoxicillin rash Drug Allergy Act kenroy Penicillin rash Drug Allergy Active Reason For Referral No Information Medications Medication SIG (Take, Route, Fr equency, Duration) Notes Start Date End Date Status Xanax Active Flaxseed Oil 1200 MG Orally twice a day Active Tylenol Active Vitamin D-3 5000 UNIT Orally Once a week Active Multi-Vitamin Daily Active Calcium 600 MG 1 tablet with meals Orally Once a day Active Simvastatin 20 MG 1 tablet in the even ing Orally Once a day Active ASA Active Eliquis 5 MG as directed Orally 2x a d Active Lisinopril 10 MG 1 tablet Orally twice a day Active Amiodarone HCl 100 MG 1 tablet Orally Once a day Active dilTIAZem HCl 120 MG as directed Intravenous Active Magnesium 200 MG 1 tablets with a adalid l Orally tawice a day Active Social History Alcohol Screen Question Answer Notes Did you have a drink contain ing alcohol in the past year? Yes How often did you have a dri nk containing alcohol in the past year? Monthly or less (1 point) Points 1 Interpretation Negative Tobacco use other than smoking: Question Answer Notes Are you an other tobacco user? 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 Problem [id number] Osteoarthritis o f right ankle and foot (M19.071) Active confirmed Problem 78753620 Osteoarthritis o f left ankle and foot (M19.072) Active confirmed Problem Osteoarthritis of midtarsal joint of left foot (1755369949593558) Osteoarthritis of midtarsal joint of left foot (M19.072) Active confirmed Vital Signs Blood pressure diastolic 76 mm Hg 03/09/2024 Height 5ft 1in in 03/09/2024 Blood pressure systolic 120 mm Hg 03/09/2024 Weight 153 lbs 03/09/2024 BMI 28.91 kg/m2 03/09/2024 Encounters Encounter Location Date Provider Diagnosis [address] [address] 03/09/2024 Luci Angie Hallux valgus (acquired), right foot M20.11 ; Osteoarthritis of midtarsal joint of left foot M19.072 ; Pain in left foot M79.672 ; Pain in left ankle and joints of left foot M25.572 ; Bursitis of left foot M77.52 ; Pain in right foot M79.671 ; 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 and Ganglion cyst of left foot M67.[address] [address] 03/09/2024 [facility] [address] [place] [address] 03/09/2024 [facility] [address] [place] [address] 03/10/2024 Brandon Sevilla Assessments Encounter Date Diagnosis (ICD Code) Assessment Notes Treatment Notes Treatment Clinical Notes Section Notes 03/09/2024 Hallux valgus (acquired), right foot (ICD-10 - M20.11) 03/09/2024 Osteoarthritis of midtarsal joint of left foot (ICD-10 - M19.072) 03/09/2024 Pain in left foot (ICD-10 - M79.672) 03/09/2024 Pain in left ankle and joints of left foot (ICD-10 - M25.572) 03/09/2024 Bursitis of left foot (ICD-10 - M77.52) 03/09/2024 Pain in right foot (ICD-10 - M79.671) 03/09/2024 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 (ICD-10 - D21.22) 03/09/2024 Ganglion cyst of left foot (ICD-10 - M67.472) Plan Of Treatment Pending Test Test Name Order Date X ray : Foot, left 3V 03/09/2024 X ray : Foot, right 3V 02/17/2023 X ray : Foot, right 3V 03/09/2024 Insurance Providers Payer Name Payer Address Payer Phone Subscriber Number Group Number Insured Name Patient Relationship to Insured Coverage Start Date Coverage End Date [employer]age [facility] [address] [place] [id number] Casey Collier Self - patient is the insured Medical (General) History Medical History History ICD Code High blood pressure Measles Mumps Chicken pox Cholesterol Arthritis Broken bones Osteoporosis Surgical History Surgery Date(Month/Year) D&C 1999 Hospitalization History Reason Date(Month/Year) observation- [facility] 11/22/2023
--- OUTSIDE RECORDS SUMMARY | 2024-05-02 18:44 | XMS_ITS ---
Author Organization [facility] Address [address] [place] [address] Care Team Providers Care Intelligence Analyst Name Role Phone Vinicius Rojas MD Primary Care Provider Unavaila Brandon Alberto [phone] REASON FOR VISIT BUY Small gel heel cup Encounters Encounter Location Date Provider Diagnosis [facility] [address] [place] [address] 03/10/2024 Brandon Sevilla Plan Of Treatment No Information Progress Notes * Casey CH CDOB:[birth year] (78 yo F)Acc No.[id number]:03/10/2024 Patient:?DIMA Casey Matthews :1945???Age:78 Y???Sex:Female Address:[address] [place], [place] [address], [address] * true * Date:? Generated for Jenniferi marisa/Ata/eTransmitting on:?05/02/2024 06:44 PM EST
--- OUTSIDE RECORDS SUMMARY | 2024-05-02 18:44 | XMS_ITS ---
Author Organization [facility] Address [address] [facility] [place] [address] Care Team Providers Care Chain Pegger Name Role Phone Vinicius Rojas MD Primary Care Provider Unavaila Brandon Alberto Unavailable [phone] REASON FOR VISIT Sm Gel Heel Cups Encounters Encounter Location Date Provider Diagnosis [address] [address] 03/09/2024 Brandon Sevilla Plan Of Treatment No Information Progress Notes * Casey CH CDOB:[birth year] (78 yo F)Acc No.[id number]:03/09/2024 Patient:?Mary CHnisha Matthews :1945???Age:78 Y???Sex:Female Address:[address] [place], [place] [address], [address] * true * Date:? Generated for Printi marisa/Ata/eTransmitting on:?05/02/2024 06:44 PM EST
== END 2024-05-02 16:01 | disposition home or self-care (01) ==
PROVIDERS: PCP Internal Medicine; Visit Provider Internal Medicine Cardiovascular Disease
DX: I48.0 Paroxysmal atrial fibrillation (principal); I25.10 Atherosclerotic heart disease of native coronary artery without angina pectoris; I10 Essential (primary) hypertension
CPT/HCPCS: 93010; 99214; G2211

== ENCOUNTER → 2024-05-02 14:54 | Outpatient (BNVA) | payer MEDICARE, SELFPAY | PROVIDERS: PCP Internal Medicine; Visit Provider Internal Medicine Cardiovascular Disease | DX: I48.0 Paroxysmal atrial fibrillation (principal); I25.10 Atherosclerotic heart disease of native coronary artery without angina pectoris; I10 Essential (primary) hypertension | CPT/HCPCS: 93005; 99212 ==

== ENCOUNTER 2024-05-31 11:31 | Outpatient (REF) | payer MEDICARE, SELFPAY ==
[2024-05-31 13:32] LABS: Alanine Aminotransferase 26 U/L (0-31); Anion Gap 12 (12-20); Aspartate Amino Transferase 26 U/L (5-31); Blood Urea Nitrogen 20 mg/dL (9-16); Calcium 9.4 mg/dL (8.4-10.2); Carbon Dioxide 27 mmol/L (22-29); Chloride 104 mmol/L (96-108); Estimated Glomerular Filt Rate > 60; Glucose Random 99 mg/dL (60-115); Potassium 3.7 mmol/L (3.3-5.1); Sodium 139 mmol/L (135-145)
[2024-05-31 13:47] LABS: Free T4 (Free Thyroxine) 0.84 ng/dL (0.71-1.85); Thyroid Stimulating Hormone 7.12 uIU/mL (0.32-4.0)
== END 2024-05-31 11:32 | disposition home or self-care (01) ==
LOC: HO.HMGCLDS 11:31
PROVIDERS: PCP Internal Medicine; Visit Provider Internal Medicine
DX: I48.0 Paroxysmal atrial fibrillation (principal); I10 Essential (primary) hypertension; E03.9 Hypothyroidism, unspecified
CPT/HCPCS: 36415; 80048; 84439; 84443; 84450; 84460

== ENCOUNTER 2024-08-09 11:14 | Outpatient (REF) | payer MEDICARE, SELFPAY ==
[2024-08-09 13:19] LABS: MANUAL DIFF FLAG NO
[2024-08-09 13:22] LABS: Basophils Percent Auto 0.6 % (0-2); Eosinophils Absolute Auto 0.1 X10*3/uL (0.0-0.4); Hemoglobin 12.6 g/dl (12.0-16.0); Imm Gran Abs Auto 0.02 X10*3/uL (0.00-0.03); Imm Gran Pct Auto 0.4 % (0.0-0.4); Lymphocytes Absolute Auto 1.6 X10*3/uL (1.2-4.9); Lymphocytes Percent Auto 29.5 % (20-40); Mean Corpuscular HGB Conc 33.2 g/dl (31.0-35.0); Mean Corpuscular Hemoglobin 30.7 pg (27.0-33.0); Mean Corpuscular Volume 92.7 fL (80.0-98.0); Mean Platelet Volume 9.1 fL (9.4-12.3); Monocytes Absolute Auto 0.4 X10*3/uL (0.1-1.2); Monocytes Percent Auto 6.8 % (2-11); Neutrophils Absolute Auto 3.3 x10*3/uL (2.0-8.3); Neutrophils Percent Auto 61.7 % (45-73); Platelet Count 308 X10*3/uL (160-400); Red Cell Distribution Width 13.2 % (11.0-16.0); White Blood Count 5.3 X10*3/uL (4.8-10.8)
[2024-08-09 14:02] LABS: Anion Gap 11 (12-20); Blood Urea Nitrogen 17 mg/dL (9-16); Calcium 9.5 mg/dL (8.4-10.2); Carbon Dioxide 28 mmol/L (22-29); Chloride 105 mmol/L (96-108); Estimated Glomerular Filt Rate > 60; Glucose Random 104 mg/dL (60-115); Potassium 3.7 mmol/L (3.3-5.1); Sodium 140 mmol/L (135-145)
[2024-08-09 14:09] LABS: TSH reflex Free T4 5.07 uIU/mL (0.32-4.0)
[2024-08-09 14:40] LABS: Free T4 (Free Thyroxine) 1.02 ng/dL (0.71-1.85)
== END 2024-08-09 11:15 | disposition home or self-care (01) ==
LOC: HO.HMGCLDS 11:14
PROVIDERS: PCP Internal Medicine; Visit Provider Nurse Practitioner Family
DX: I48.0 Paroxysmal atrial fibrillation (principal)
CPT/HCPCS: 36415; 80048; 84439; 84443; 85025

== ENCOUNTER 2024-08-14 09:57 | Outpatient (AMB) | payer MEDICARE, SELFPAY ==
--- NOTE | 2024-08-14 09:59 | AM.OFFWIN_ITS ---
Intake Vital Signs 08/14/24 10:00 Height 5 ft 1 in Weight 158 lb BMI 29.9 BP 118/76 Blood Pressure Location Rt brachial Position Sitting Pulse 68 Pulse Source Pulse Oximeter Pulse Oximetry (%) 98 Oxygen Delivery Method Room Air Intake Visit Reasons: EP LT arm pain 10 days, rash Intake Note: Patient here for left arm pain(muscle) that has been present for about 10 days and developed a rash this morning. Patient Tobacco Use Status: Never used Tobacco Allergies epinephrine [EPINEPHRINE] Allergy (Severe, Verified 08/14/24 10:01) EPI MIXED IN A LOCAL ANES. lOW BP LIGHTHEADEDNES, bradycardia amoxicillin [AMOXICILLIN] Allergy (Mild, Verified 08/14/24 10:01) RASH penicillin V Allergy (Unknown, Verified 08/14/24 10:01) rash metoprolol Adverse Reaction (Intermediate, Uncoded 08/14/24 10:01) Fatigued Do you need a note to return to daycare/school/sports/work: No HPI HPI Comments History of Present Illness Details History of Present Illness - The patient is an 79-year-old female p resenting with arm pain and rash. - Arm pain has been ongoing for over a w [place], thought to originate from sleeping on the arm, with symptoms most severe in the morning. Patient believes it is musculoskeletal in nature and has been treating it as such. - There is a historical presence of lump s (lipomas) in the arm area, considered normal and consistent with past occurrences. - The newly appeared rash is flat, red, and was initially brighter, without itching or pain, and does not form vesicles. - The patient denies any warmth or burni ng sensation associated with rash, similar to previous shingles episodes, but no current nerve pain is perceived. - No additional symptoms like fever or i tchiness; no signs of tick bites or martha rgic rash. - Despite a history of past spider bites , the current rash does not align with previous reactions. Physical Exam General: Cooperative, healthy appearing, comfortable, no acute distress and well developed Orientation: Patient oriented x3 Limitations: No limitations Head: Normal to inspection Ears: Hearing grossly normal bilaterally Nose: Normal External nose present Face and sinus: Normal facial exam Eyes: Appearance normal, both eyes and all related structures Neck: Normal visual inspection and Yes full ROM Respiratory: Normal respiratory effort and able to speak in complete sentences. Skin: four 0.5-0.75cm slightly irregular shaped flat areas of erythema on left arm, just superior to inner AC, does not cecil, no warmth, no vesicles Neuro: Patient oriented x3 Extremities: Normal to inspection, full ROM left elbow, no TTP medial or lateral epicondyles PFSH Medical History HTN (hypertension) Paroxysmal atrial fibrillation Cataract Family History Father Myocardial infarct Mother Myocardial infarct Brother History of quadruple bypass Social History Household Members: None Housing: House Do you presently have visiting nurse or other home services: No Alcohol intake: current Alcohol intake frequency: holidays/special occasions only Alcohol type: wine Patient Tobacco Use Status: Never used Tobacco service: No Review of Systems Const All systems reviewed & are unremarkable except as noted in HPI and below Physical Exam Vital Signs: Last Vital Signs Pulse 68 08/14/24 10:00 BP 118/76 08/14/24 10:00 Pulse Ox 98 08/14/24 10:00 Oxygen Delivery Method Room Air 08/14/24 10:00 BMI result Body Mass Index 29.9 Assessment & Plan Assessment & Plan (1) Rash and nonspecific skin eruption: Code(s): R21 - Rash and other nonspecific skin eruption Plan: VSS, pt well appearing, no concerning signs, unclear as to what this rash is, it is not itchy or painful. Not typical lyme presentation, does not appear to be a contact dermatitis, fungal rash, bug bite, shingles or post viral exanthem. I instructed the patient to observe the rash for any progression to vesicle formation, which could suggest a possible diagnosis of shingles if accompanied by pain. At present, the lack of vesicles and significant pain minimizes this concern. The rash does not currently indicate an allergic reaction, but hydrocortisone cream is an option if it becomes itchy. In the absence of additional symptoms, specifically fever or new pain, she should monitor the condition, and should any worrying symptoms develop, she is advised to return for reevaluation. Continued surveillance of the condition is crucial, and reassessment will be necessary if there is no improvement or if it deteriorates. Recommended short term Voltaren gel for arm pain as she cannot take NSAIDS with blood thinner use. Patient was informed and verbally consented to the use of an ambient scribe for clinic note documentation during this visit. Coding Level of Care Code Est Pt Level 3 (05801) Diagnoses Rash and nonspecific skin eruption R21
[2024-08-14 10:00] VITALS: BP 118/76; PULSE 68; O2SAT 98; BMI 29.9
== END 2024-08-14 10:41 | disposition home or self-care (01) ==
PROVIDERS: PCP Internal Medicine; Visit Provider Physician Assistant
DX: R21 Rash and other nonspecific skin eruption (principal)

== ENCOUNTER → 2024-08-14 09:57 | Outpatient (BNVA) | payer MEDICARE, SELFPAY | PROVIDERS: PCP Internal Medicine; Visit Provider Physician Assistant | DX: R21 Rash and other nonspecific skin eruption (principal) | CPT/HCPCS: 99212 ==

== ENCOUNTER 2024-09-21 08:50 | Outpatient (AMB) | payer MEDICARE, SELFPAY ==
[2024-09-21 08:59] VITALS: BP 128/82; PULSE 89; TEMP 36.6; O2SAT 98; BMI 29.7
--- NOTE | 2024-09-21 08:59 | A.OFFPC_ITS ---
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 lOW BP LIGHTHEADEDNES, bradycardia amoxicillin [AMOXICILLIN] Allergy (Mild, Verified 09/21/24 09:00) RASH penicillin V Allergy (Unknown, Verified 09/21/24 09:00) rash metoprolol Adverse Reaction (Intermediate, Uncoded 08/14/24 10:01) Fatigued Tobacco use date assessed: 09/21/24 Fall risk assessment: 1 Fall in past year Last assessed Fall Risk: 09/21/24 Dental Screening Dental Screen Date: 09/21/24 Did you have a dental visit in the last 12 months?: Yes Did you have a dental problem in the last 6 months where you did not have access to dental care?: No HPI HPI Comments History of Present Illness Details The patient 78 year old female with a past medical history of hypertension, hyperlipidemia, atrial fibrillation, anxiety, osteopenia, stress incontinence presenting for follow up. Last seen in May by PCP. Seen in July at walk in for rash CV: On lisinopril, simvastatin, amiodarone. Follows with cardiology Dr Caro. October is next appt Anxiety: On alprazolam as needed. Hypothyroid: on levothyroxine 25mcg daily. ROS CONSTITUTIONAL: Denies weight loss, fever and chills. HEENT: Denies changes in vision and hearing. RESPIRATORY: Denies SOB and cough. CV: Denies palpitations and CP GI: Denies abdominal pain, nausea, vomiting and diarrhea. : Denies dysuria and urinary frequency. MSK: Denies new myalgia and joint pain. SKIN: Denies rash and pruritus. NEUROLOGICAL: Denies headache PSYCHIATRIC: Denies recent changes in mood. PHYSICAL EXAM: GENERAL: Alert and oriented x 3. NAD EYES: EOMI. Anicteric. HENT: Moist mucous membranes. No scleral icterus. No cervical lymphadenopathy. LUNGS: Clear to auscultation bilaterally. CARDIOVASCULAR: Regular rate and rhythm. No murmur. No JVD. ABDOMEN: Soft, non-tender +bs EXTREMITIES: No edema. Non-tender. SKIN: No rashes or lesions. Warm. NEUROLOGIC: No focal neurological deficits. CN II-XII grossly intact PSYCHIATRIC: Cooperative. Appropriate mood and affect [facility] Medical History HTN (hypertension) Paroxysmal atrial fibrillation Cataract Family History Father Myocardial infarct Mother Myocardial infarct Brother History of quadruple bypass Social History Household Members: None Housing: House Do you presently have visiting nurse or other home services: No Alcohol intake: current Alcohol intake frequency: holidays/special occasions only Alcohol type: wine Patient Tobacco Use Status: Never used Tobacco e-Cigarette/Vaping Use: Never Used service: No Current occupational status: retired Cognitive needs: No Hearing needs: No Vision needs: Yes (reading glasses) Questionnaire PHQ-9 Over the last 2 weeks, how often have you been bothered by any of the following problems? 1. Little interest or pleasure in doing things: not at all 2. Feeling down, depressed, or hopeless: several days 3. Trouble falling or staying asleep, or sleeping too much: not at all 4. Feeling tired or having little energy: not at all 5. Poor appetite or overeating: not at all 6. Feeling bad about yourself - or that you are a failure or have let yourself or your family down: not at all 7. Trouble concentrating on things, such as reading the newspaper or watching television: not at all 8. Moving or speaking so slowly that other people could have noticed. Or the op posite - being so fidgety or restless that you have been moving around a lot more than usual: not at all 9. Thoughts that you would be better off or of hurting yourself in some way: not at all Total score: 1 Depression Screening Interpretation: Negative Depression Screening Done: Yes 69171 - PHQ-9 Billing: Yes Source: Developed by Drs. Mendoza Lawson, Belen B.Jonathon Salgado and colleagues, with an educational rayray from [employer]. Thrive Questionnaire Date Thrive assessed: 09/21/24 I am a: Patient Within the past 12 months, did the food you bought not last and you didn't have the money to get more?: Never true Within the past 12 months, did you worry whether your food would run out before you got money to buy more?: Never true Do you have trouble paying for medicines?: No Do you have trouble getting transportation to medical appointments?: No Do you have trouble paying your heating and electricity bill?: No Do you have trouble taking care of your child, family member or friend?: No Do you have trouble with day-to-day activities such as bathing, preparing meals, shopping, managing finances, etc.?: No Are you currently unemployed and looking for a job?: No Are you interested in more education?: No THRIVE Score: 0 AUDIT C Alcohol Use Questionnaire (AUDIT-C) 1. How often do you have a drink containing alcohol?: Monthly or less 2. How many drinks containing alcohol do you have on a typical day when you are drinking?: 1 or 2 3. How often do you have six or more drinks on one occasion?: Less than monthly Total Score: 2 TEENA-7 AMB Questionnaire TEENA-7 Date TEENA - 7 assessed: 09/21/24 Feeling nervous, anxious, or on edge: 1 = Several days Not being able to stop or control worryin = Not at all Worrying too much about different things: 0 = Not at all Trouble relaxin = Not at all Being so restless that it is hard to sit still: 0 = Not at all Becoming easily annoyed or irritable: 0 = Not at all Feeling afraid as if something awful might happen: 0 = Not at all Total TEENA-7 score (0-4 normal; 5-9 mild; 10-14 moderate; 15-21 severe): 1 Source: Developed by Drs. Mendoza Lawson, Jonathon Marcano and colleagues, with an educational rayray from [employer]. Physical exam (Primary Care) Vital Signs: Last Vital Signs Temp 97.9 F 09/21/24 08:59 Pulse 89 09/21/24 08:59 BP 128/82 09/21/24 08:59 Pulse Ox 98 09/21/24 08:59 Oxygen Delivery Method Room Air 09/21/24 08:59 BMI result Body Mass Index 29.7 Tobacco/Smoking Status: Tobacco use Status Tobacco use date assessed 09/21/24 09/21/24 09:04 Patient Tobacco Use Status Never used Tobacco 09/21/24 09:04 e-Cigarette/Vaping Use Never Used 09/21/24 09:04 PHQ-9: PHQ-9 Score PHQ-9: Total score 1 09/21/24 09:12 Depression Screening Interpretation: Negative Thrive Assessment: Date of Thrive Assessment Date Thrive assessed 09/21/24 09/21/24 09:04 Coding Level of Care Code New Pt Level 4 (60688) Complex EM visit Add On G2211 Diagnoses Age related osteoporosis, unspecified pathological fracture presence M81.0 Osteoporosis type: age-related Presence of current pathological fracture: unspecified Coronary artery disease involving [place] coronary artery of [place] heart without angina pectoris I25.10 Coronary Disease-Associated Artery/Lesion type: [place] artery [place] vs. transplanted heart: [place] heart Associated angina: without angina Primary hypertension I10 Hypertension type: primary hypertension Paroxysmal atrial fibrillation I48.0 Additional Codes PHQ-9 - 00651 - PHQ-9 Billing: Yes ([id number]) Assessment & Plan Assessment & Plan (1) Osteoporosis: Code(s): M81.0 - Age-related osteoporosis without current pathological fracture Category: Medical Qualifiers: Osteoporosis type: age-related Presence of current pathological fracture: unspecified Qualified Code(s): M81.0 - Age-related osteoporosis without current pathological fracture (2) CAD (coronary artery disease): Comment: Nonobstructive by coronary CTA Code(s): I25.10 - Atherosclerotic heart disease of [place] coronary artery without angina pectoris Category: Medical Qualifiers: Coronary Disease-Associated Artery/Lesion type: [place] artery [place] vs. transplanted heart: [place] heart Associated angina: without angina Qualified Code(s): I25.10 - Atherosclerotic heart disease of [place] coronary artery without angina pectoris (3) HTN (hypertension): Code(s): I10 - Essential (primary) hypertension Category: Medical Qualifiers: Hypertension type: primary hypertension Qualified Code(s): I10 - Essential (primary) hypertension (4) Paroxysmal atrial fibrillation: Code(s): I48.0 - Paroxysmal atrial fibrillation Category: Medical Plan 79 y/o to establish care Past medical surgical social reviewed Chronic medical conditions are stable. labs, dxa, mammo ordered Orders: Orders Lipid Panel 4 Months I10 - Essential (primary) hypertension, I25.10 - Atherosclerotic heart disease of [place] coronary artery without angina pectoris, I48.0 - Paroxysmal atrial fibrillation, R94.6 - Abnormal results of thyroid function studies Comprehensive Met. Panel 4 Months I10 - Essential (primary) hypertension, I25.10 - Atherosclerotic heart disease of [place] coronary artery without angina pectoris, I48.0 - Paroxysmal atrial fibrillation, R94.6 - Abnormal results of thyroid function studies TSH reflex Free T4 4 Months I10 - Essential (primary) hypertension, I25.10 - Atherosclerotic heart disease of [place] coronary artery without angina pectoris, I48.0 - Paroxysmal atrial fibrillation, R94.6 - Abnormal results of thyroid function studies MM screening mammo BI 5 Months Z12.31 - Encounter for screening mammogram for malignant neoplasm of breast XR DEXA axial skeleton 5 Months M81.0 - Age-related osteoporosis without current pathological fracture Medications: Refilled alprazolam (Xanax) 0.125 mg (1/2 x 0.25 mg) PO DAILY 30 tabs 3RF
== END 2024-09-21 09:26 | disposition home or self-care (01) ==
LOC: HO.HMCHD 08:51
PROVIDERS: PCP Internal Medicine; Visit Provider Internal Medicine
DX: M81.0 Age-related osteoporosis without current pathological fracture (principal); I25.10 Atherosclerotic heart disease of native coronary artery without angina pectoris; I10 Essential (primary) hypertension; I48.0 Paroxysmal atrial fibrillation

== ENCOUNTER → 2024-09-21 08:50 | Outpatient (BNVA) | payer MEDICARE, SELFPAY | PROVIDERS: PCP Internal Medicine; Visit Provider Internal Medicine | DX: I10 Essential (primary) hypertension (principal); E78.5 Hyperlipidemia, unspecified; I48.91 Unspecified atrial fibrillation; N39.3 Stress incontinence (female) (male); M81.0 Age-related osteoporosis without current pathological fracture; I25.10 Atherosclerotic heart disease of native coronary artery without angina pectoris; I48.0 Paroxysmal atrial fibrillation | CPT/HCPCS: 96127; 99202 ==

== ENCOUNTER 2024-11-09 14:08 | Outpatient (AMB) | payer MEDICARE, SELFPAY ==
--- NOTE | 2024-11-09 14:09 | A.OFFVIS_ITS ---
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 lOW BP LIGHTHEADEDNES, bradycardia amoxicillin (AMOXICILLIN) Allergy (Mild, Verified 09/21/24 09:00) RASH penicillin V Allergy (Unknown, Verified 09/21/24 09:00) rash metoprolol Adverse Reaction (Intermediate, Uncoded 08/14/24 10:01) Fatigued Medication List - Last Reconciled 11/09/24 by Bipin Caro MD acetaminophen (Tylenol Extra Strength) 500 mg PO .bid PRN alprazolam (Xanax) 0.125 mg (1/2 x 0.25 mg) PO DAILY amiodarone 100 mg (1/2 x 200 mg) PO DAILY apixaban (Eliquis) 5 mg PO BID calcium carbonate 500 mg PO BID cholecalciferol (vitamin D3) 50 mcg PO SA diltiazem HCl CD 120 mg PO DAILY flaxseed oil 1,000 mg PO BID levothyroxine 25 mcg PO DAILY lisinopril 10 mg PO DAILY magnesium glycinate 100 mg PO DAILY multivitamin 1 tab PO DAILY simvastatin 20 mg PO DAILY HPI Comments Details: Casey comes for follow-up. She has been doing very well. She has not had any recurrent episodes of atrial fibrillation. Feels well. Does not exercise much. She is currently taking 100 mg of amiodarone. She has not had any heart failure symptoms. Blood pressures been well controlled. She denies any chest pain with exertion. No bleeding issues or neurologic events. [facility] Medical History HTN (hypertension) Paroxysmal atrial fibrillation Cataract Family History Father Myocardial infarct Mother Myocardial infarct Brother History of quadruple bypass Social History Household Members: None Housing: House Do you presently have visiting nurse or other home services: No Alcohol intake: current Alcohol intake frequency: holidays/special occasions only Alcohol type: wine Patient Tobacco Use Status: Never used Tobacco e-Cigarette/Vaping Use: Never Used service: No Current occupational status: retired Cognitive needs: No Hearing needs: No Vision needs: Yes (reading glasses) Review of Systems Const Denies chills, Denies fatigue, Denies fever(s), Denies frequent falls, Denies weakness, Denies weight gain and Denies weight loss ENT Denies dizziness Card Denies chest pain, Denies leg edema, Denies lightheadedness, Denies palpitations, Denies dyspnea, Denies dyspnea on exertion, Denies orthopnea and Denies other (loss of consciousness) Resp Denies cough, Denies dyspnea and Denies dyspnea on exertion GI Denies hematochezia and Denies change in stool character Musc Denies abnormal gait, Denies muscle weakness, Denies numbness, Denies radiating pain into limb and Denies tingling Neuro Denies abnormal gait, Denies dizziness, Denies frequent falls, Denies numbness, Denies tingling and Denies weakness Endo Denies fatigue and Denies palpitations Physical Exam Vital Signs: Last Vital Signs Pulse 62 11/09/24 14:10 BP 120/70 11/09/24 14:10 BMI result Body Mass Index 29.2 Const General: cooperative, healthy appearing, comfortable and no acute distress Orientation/consciousness: patient oriented x3 Neck Neck: Yes normal visual inspection and Yes no JVD Resp Effort & Inspection: normal respiratory effort Auscultation: clear to auscultation bilaterally, no crackles, no rales, no rhonchi and no wheezes Cardio Jugular venous distension: no JVD Rate: regular rate Rhythm: regular rhythm Heart sounds: S1 normal heart sound present, S2 normal heart sound present, no murmurs and no rubs Neuro General: patient oriented x3 Extrem General: Yes normal to inspection, No no pedal edema and No calf tenderness Psych Appearance: grossly normal Mental Status: mental status grossly normal Speech and movement: Normal speech and movement present Office Procedures EKG Details: EKG shows normal sinus rhythm low-voltage QRS with poor R-wave progression most likely lead placement [id number], Complete Assessment & Plan Assessment & Plan (1) Paroxysmal atrial fibrillation: Code(s): I48.0 - Paroxysmal atrial fibrillation Category: Medical Plan: Paroxysmal atrial fibrillation which has remained suppressed and has done extremely well with rhythm control approach will continue pursue rhythm control approach. Given good control, will switch her amiodarone to flecainide therapy. Advised to stop amnio for 2 days and started on flecainide. Follow-up EKG in 7 days. Continue full oral anticoagulation, currently on apixaban 5 mg b.i.d.. Semi annual renal function test is recommended. Once amiodarone. It may affect her tired function at this needs to be pursued and dose adjusted accordingly. This should be pursued through your office. Would recheck TSH in about a month's time (2) CAD (coronary artery disease): Comment: Nonobstructive by coronary CTA Code(s): I25.10 - Atherosclerotic heart disease of [place] coronary artery without angina pectoris Category: Medical Qualifiers: Coronary Disease-Associated Artery/Lesion type: [place] artery [place] vs. transplanted heart: [place] heart Associated angina: without angina Qualified Code(s): I25.10 - Atherosclerotic heart disease of [place] coronary artery without angina pectoris Plan: Nonobstructive CAD without any significant symptoms at current point time. Continue aggressive medical therapy. Currently on full oral anticoagulation with Eliquis is an avoid aspirin therapy. Continue statin therapy with target goal LDL less than 70 mg/dL. Her blood pressure is currently well optimized. She is encouraged to increase her activity level as tolerated. Will follow up in the clinic in 6 months time, sooner p.r.n.. Thank you for allowing me to partake in her care Medications: New flecainide 100 mg PO Q12H 60 tabs 5RF Coding Level of Care Code Est Pt Level 4 (30378) Complex EM visit Add On G2211 Diagnoses Paroxysmal atrial fibrillation I48.0 Coronary artery disease involving [place] coronary artery of [place] heart without angina pectoris I25.10 Coronary Disease-Associated Artery/Lesion type: [place] artery [place] vs. transplanted heart: [place] heart Associated angina: without angina CPT Codes EKG - CPT: 86927-[id number], Complete ([id number])
[2024-11-09 14:10] VITALS: BP 120/70; PULSE 62; BMI 29.2
== END 2024-11-09 14:40 | disposition home or self-care (01) ==
LOC: HO.HCS 14:08
PROVIDERS: PCP Internal Medicine; Visit Provider Internal Medicine Cardiovascular Disease
DX: I48.0 Paroxysmal atrial fibrillation (principal); I25.10 Atherosclerotic heart disease of native coronary artery without angina pectoris
CPT/HCPCS: 93010; 99214; G2211

== ENCOUNTER → 2024-11-09 14:08 | Outpatient (BNVA) | payer MEDICARE, SELFPAY | PROVIDERS: PCP Internal Medicine; Visit Provider Internal Medicine Cardiovascular Disease | DX: I48.0 Paroxysmal atrial fibrillation (principal); I25.10 Atherosclerotic heart disease of native coronary artery without angina pectoris; R94.31 Abnormal electrocardiogram [ECG] [EKG] | CPT/HCPCS: 93005; 99212 ==

== ENCOUNTER 2025-01-22 06:46 | Outpatient (REF) | payer MEDICARE, SELFPAY ==
--- OUTSIDE RECORDS SUMMARY | 2025-01-22 06:49 | XMS_ITS | Clinical Summary ---
Author Organization [facility] Address [address] [address] Phone Care Team Providers Care Crepe Box Tender Name Role Phone Vinicius Rojas MD Primary Care Provider Allergies Active Allergy Reactions Criticality Noted Date Comments Amoxicillin Rash Low 05/13/2018 Epinephrine 05/13/2018 Medications lisinopril (PRINIVIL,ZESTRIL ) 20 MG tablet Take 20 mg by mouth 2 (two) times a day. Active simvastatin (ZOCOR) 20 MG tablet Take 20 mg by mouth nightly. Active calcium carbonate-vitamin D3 1,250 mg (500 mg elemental)-400 units per tablet Take 1 tablet by mouth daily. Active aspirin 81 MG EC tablet Take 81 mg by mouth daily. Active cholecalciferol (VITAMIN D3) 5,000 unit capsule Take 5,000 Units by mouth daily. Active flaxseed oil 1,000 mg Cap Take 1,000 mg by mouth daily. Active therapeutic multivitamin tablet Take 1 tablet by mouth daily. Active magnesium oxide 250 mg (150 mg elemental) Tab Take 250 mg by mouth daily. Active Social History Tobacco Use Types Packs/Day Years Used Date Smoking Tobacco: Never Smokeless Tobacco: Never Education Answer Date Recorded Are you interested in more education? Not on maritza e 08/21/2022 Are you concerned about learning? Not on file 08/21/2022 No 08/21/2022 No 08/21/2022 Digital Access Answer Date Recorded No 09/19/2022 No 09/19/2022 No 09/19/2022 Reliable internet access at home? Not on file 09/19/2022 Device with a working camera? Not on file Comments Unknown Sex and Gender Information Value Date Recorded Sex Assigned at Not on file Legal Sex Female 1:09 PM EST Gender Identity Not on file Sexual Orientation Not on file Last Filed Vital Signs Vital Sign Reading Time Taken Comments Blood Pressure 122/76 06/13/2018 8:33 AM EST Pulse 62 06/13/2018 8:33 AM EST Temperature - - Respiratory Rate - - Oxygen Saturation - - Inhaled Oxygen Concentration - - Weight 74.8 kg (164 lb 12.8 oz) 06/13/2018 8:33 AM EST Height 154.9 cm (5' 1 ) 06/13/2018 8:33 AM EST Body Mass Index 31.14 06/13/2018 8:33 AM EST Plan of Treatment Health Maintenance Due Date Last Done Comments Adult Td,Tdap Booster 1945 CREATININE LEVEL 1945 POTASSIUM LEVEL 1945 DEPRESSION SCREENING 1955 PNEUMOCOCCAL VACCINES (50+ years) (1 of 1 - PCV) 07/10/1993 ZOSTER VACCINES (1 of 2) 07/10/1993 OSTEOPOROSIS SCREENING INITI AL (ONE-TIME) 07/10/2008 RSV VACCINE (1 - 1-dose 75+ series) 07/10/2018 INFLUENZA VACCINE (#1) 2024 COVID-19 VACCINE (3 - 2024-2 6 season) 2024 06/05/2020, 05/15/2020 HEPATITIS A VACCINES Aged Out No long er eligible based on patient's age to complete this topic HIB VACCINES Aged Out No longer eligi ble based on patient's age to complete this topic MENINGOCOCCAL VACCINES (ACWY) Aged Out No longer eligible based on patient's age to complete this topic MENINGOCOCCAL VACCINES (B) Aged Out N o longer eligible based on patient's age to complete this topic Medical Devices Not on file Insurance [employer]UST [id number] [employer] [place] [employer] POS PPO REPLACEMENT [employer] [place] [employer] POS PPO REPLACEMENT [employer] [place] [employer] [place] PPO REPLACEMENT [employer] [place] [employer] [place] PPO REPLACEMENT [employer] [place] [employer] POS PPO REPLACEMENT [employer] [place] [employer] POS PPO REPLACEMENT [employer] [place] [employer] POS PPO REPLACEMENT [employer] [place] [employer] POS PPO REPLACEMENT [employer] [place] [employer] POS PPO REPLACEMENT Care Teams Crepe Box Tender Relationship Specialty Start Date End Date Vinicius Rojas MD [address] [place] [address] [place] [address] PCP - General Internal Medicine 05/13/18 Additional Source Comments The information contained in this document represents components of the legal health record. It is not the complete legal health record.[facility]
[2025-01-22 10:53] LABS: Alanine Aminotransferase 21 U/L (0-31); Albumin Level 4.4 g/dL (3.5-5.0); Alkaline Phosphatase 61 U/L (39-117); Anion Gap 11 (12-20); Aspartate Amino Transferase 23 U/L (5-31); Blood Urea Nitrogen 14 mg/dL (9-16); Calcium 9.2 mg/dL (8.4-10.2); Carbon Dioxide 28 mmol/L (22-29); Chloride 101 mmol/L (96-108); Cholesterol 208 mg/dL (<200); Estimated Glomerular Filt Rate > 60; HDL Cholesterol 77 mg/dL (>40); Potassium 4.3 mmol/L (3.3-5.1); Sodium 136 mmol/L (135-145); Total Protein 6.9 g/dL (6.5-8.0); Triglycerides 72 mg/dL (<150)
[2025-01-22 11:47] LABS: Free T4 (Free Thyroxine) 0.96 ng/dL (0.71-1.85)
== END 2025-01-22 06:47 | disposition home or self-care (01) ==
LOC: HO.HMGCLDS 06:46
PROVIDERS: Visit Provider Internal Medicine
DX: I48.0 Paroxysmal atrial fibrillation (principal); I25.10 Atherosclerotic heart disease of native coronary artery without angina pectoris; I10 Essential (primary) hypertension; R94.6 Abnormal results of thyroid function studies
CPT/HCPCS: 36415; 80053; 80061; 84439; 84443

== ENCOUNTER 2025-01-29 12:20 | Outpatient (AMB) | payer MEDICARE, SELFPAY ==
[2025-01-29 13:47] VITALS: BP 162/76; PULSE 67; TEMP 36.7; O2SAT 98; BMI 29.7
--- NOTE | 2025-01-29 13:47 | AM.OFFWIN_ITS ---
Intake Vital Signs 01/29/25 13:47 Height 5 ft 1 in Weight 157 lb BMI 29.7 BP 162/76 H Blood Pressure Location Lt brachial Position Sitting Pulse 67 Pulse Source Pulse Oximeter Temp 98.0 F Temp Source Oral Pulse Oximetry (%) 98 Oxygen Delivery Method Room Air Intake Visit Reasons: EP Cold [phone] Intake Note: pt presents with chest congestion with a cough, fatigue, minimal headaches x5 days Patient Tobacco Use Status: Never used Tobacco Allergies epinephrine (EPINEPHRINE) Allergy (Severe, Verified 01/29/25 13:48) EPI MIXED IN A LOCAL ANES. lOW BP LIGHTHEADEDNES, bradycardia amoxicillin (AMOXICILLIN) Allergy (Mild, Verified 01/29/25 13:48) RASH penicillin V Allergy (Unknown, Verified 01/29/25 13:48) rash metoprolol Adverse Reaction (Intermediate, Uncoded 08/14/24 10:01) Fatigued Do you need a note to return to daycare/school/sports/work: No HPI HPI Comments History of Present Illness0 Details History - The patient is an 79-year-old female p resenting with a persistent cough. - The cough began on Wednesday and has b een accompanied by periods of weakness and fatigue. - The patient reports no fever but exper iences occasional headaches and a sore throat that occurred once at night. - The cough is non-productive and not as sociated with shortness of breath. - The patient has a history of hypertens ion, with recent home measurements indicating lower blood pressure than recorded in the clinic. - The patient has a low degree of conges tive heart failure but no significant symptoms noted during the visit. - She has no sick contacts or recent tra saeid. - She denies fever, chills, CP, abd pain , n/v/d but has been fatigued. - She has a trip this weekend and wants to make sure that she does have anything. Physical Exam General: Cooperative, healthy appearing, comfortable and no acute distress Orientation/consciousness: Patient oriented x3 Limitations: No limitations Head: Normal to inspection Ears: Hearing grossly normal bilaterally, external ears normal and TM's normal bilaterally Nose: Normal external nose present, normal nares present, and no nasal discharge present. Face and sinus: Sinuses nontender to palpation. Mouth: Normal oral and palatal mucosa present and moist mucous membranes noted. Throat: Tonsils normal. Uvula is midline. Posterior oropharynx with erythema and no exudates. Eyes: Appearance normal, both eyes and all related structures Neck: Normal visual inspection, full ROM. No lymphadenopathy noted. Respiratory: Clear to auscultation bilaterally. Normal respiratory effort, able to speak in complete sentences. No respiratory distress, not tachypneic, no tripod positioning and no use of accessory muscles. Cardiovascular: Regular rate and rhythm. Normal S1 and S2 Skin: No rashes or lesions noted [facility] Medical History HTN (hypertension) Paroxysmal atrial fibrillation Cataract Family History Father Myocardial infarct Mother Myocardial infarct Brother History of quadruple bypass Social History Household Members: None Housing: House Do you presently have visiting nurse or other home services: No Alcohol intake: current Alcohol intake frequency: holidays/special occasions only Alcohol type: wine Patient Tobacco Use Status: Never used Tobacco e-Cigarette/Vaping Use: Never Used service: No Current occupational status: retired Cognitive needs: No Hearing needs: No Vision needs: Yes (reading glasses) Review of Systems Const All systems reviewed & are unremarkable except as noted in HPI and below Physical Exam Vital Signs: Last Vital Signs Temp 98.0 F 01/29/25 13:47 Pulse 67 01/29/25 13:47 BP 162/76 H 01/29/25 13:47 Pulse Ox 98 01/29/25 13:47 Oxygen Delivery Method Room Air 01/29/25 13:47 BMI result Body Mass Index 29.7 Results Reviewed Results Reviewed: will review the xray in the office Assessment & Plan Assessment & Plan (1) Cough: Code(s): R05.9 - Cough, unspecified Qualifiers: Cough type: acute Qualified Code(s): R05.1 - Acute cough Plan Most likely URI vs covid vs RSV vs flu vs CAP will order an xray plan - will order a resp panel in the office - will call her with the results of the CXR and resp panel and treat accordingly - tylenol or motrin as needed for pain or fever - tessalon perles as needed for the cough - follow up with PCP Orders: Orders Resp Pathogen Panel - [facility] Today J06.9 - Acute upper respiratory infection, unspecified XR chest 2V Today R05.9 - Cough, unspecified Medications: New benzonatate 100 mg PO bid-tid PRN 21 caps 0RF Cough 7 days Coding Level of Care Code Est Pt Level 4 (50337) Diagnoses Acute cough R05.1 Cough type: acute
--- OUTSIDE RECORDS SUMMARY | 2025-01-29 14:42 | XMS_ITS | Clinical Summary ---
Author Organization [facility] Address [address] [address] Phone Care Team Providers Care Fire Engine Pump Operator Name Role Phone Vinicius Rojas MD Primary [...] Devices Not on file Insurance [employer] [id number] [employer] [place] [employer] POS PPO REPLACEMENT [...] [place] MED[place] POS PPO REPLACEMENT Care Teams Fire Engine Pump Operator Relationship Specialty Start Date End Date Vinicius Rojas MD [address] [place] [address] [place] [address] PCP - General Internal Medicine 05/13/18 Additional Source Comments The information contained in this document represents components of the legal health record. It is not the complete legal health record.[facility]
== END 2025-01-29 14:27 | disposition home or self-care (01) ==
PROVIDERS: PCP Internal Medicine; Visit Provider Physician Assistant Medical
DX: R05.1 Acute cough (principal)

== ENCOUNTER 2025-01-29 12:20 | Outpatient (REF) | payer MEDICARE, SELFPAY ==
--- NOTE | ~2025-01-29 | XR_ITS ---
EXAMINATION: XR CHEST CLINICAL INFORMATION: R05.9 - Cough, unspecified COMPARISON: Previous chest x-ray most recent October 2023 TECHNIQUE: 2 views of the chest were obtained. FINDINGS: No significant abnormality is noted involving the heart, lungs, mediastinum, bony thorax or soft tissues. XR/XR chest 2V IMPRESSION: Unremarkable examination. Electronically signed by: Dafne Corey MD 01/29/2025 02:43 PM EDT
[2025-01-30 09:44] LABS: Chlamydia pneumoniae PCR Not Detected (Not Detect.); Coronavirus 229E PCR Not Detected (Not Detect.); Coronavirus HKU1 PCR Not Detected (Not Detect.); Coronavirus NL63 PCR Not Detected (Not Detect.); Coronavirus OC43 PCR Detected (Not Detect.); RSV PCR Not Detected (Not Detect.); Rhino/Enterovirus PCR Not Detected (Not Detect.)
[2025-01-30 09:48] LABS: SARS-CoV-2 PCR Not Detected (Not Detect.)
[2025-01-30 09:49] LABS: Influenza A H1 PCR Not Detected (Not Detect.); Influenza A H1-2009 PCR Not Detected (Not Detect.); Influenza A H3 PCR Not Detected (Not Detect.)
== END 2025-01-29 12:21 | disposition home or self-care (01) ==
LOC: HO.HMGCX 12:20
PROVIDERS: PCP Internal Medicine; Visit Provider Physician Assistant Medical
DX: R05.1 Acute cough (principal); J06.9 Acute upper respiratory infection, unspecified; R09.89 Other specified symptoms and signs involving the circulatory and respiratory systems; R53.83 Other fatigue; R51.9 Headache, unspecified
CPT/HCPCS: 71046; 87633; 99212

== ENCOUNTER → 2025-01-29 14:29 | Outpatient (BNV) | payer MEDICARE, SELFPAY | PROVIDERS: PCP Internal Medicine; Visit Provider Radiology Diagnostic Radiology | DX: R05.9 Cough, unspecified (principal) | CPT/HCPCS: 71046 ==

== ENCOUNTER 2025-02-01 12:18 | Outpatient (AMB) | payer MEDICARE, SELFPAY ==
[2025-02-01 12:25] VITALS: BP 136/78; PULSE 69; TEMP 36.6; O2SAT 97; BMI 29.7
--- NOTE | 2025-02-01 12:25 | MHC.OFFWIV ---
Intake Vital Signs 02/01/25 12:25 Height 5 ft 1 in Weight 157 lb BMI 29.7 BP 136/78 Blood Pressure Location Rt brachial Position Sitting Pulse 69 Pulse Source Pulse Oximeter Temp 97.8 F Temp Source Oral Pulse Oximetry (%) 97 Oxygen Delivery Method Room Air Intake Visit Reasons: EP-fatigue, coughing Intake Note: Pt is here today for a walk in visit. Pt c/o cough, fatigue feeling weak since yesterday. Patient Tobacco Use Status: Never used Tobacco Allergies epinephrine (EPINEPHRINE) Allergy (Severe, Verified 02/01/25 12:29) EPI MIXED IN A LOCAL ANES. lOW BP LIGHTHEADEDNES, bradycardia amoxicillin (AMOXICILLIN) Allergy (Mild, Verified 02/01/25 12:29) RASH penicillin V Allergy (Unknown, Verified 02/01/25 12:) rash metoprolol Adverse Reaction (Intermediate, Uncoded 02/01/25 12:29) Fatigued HPI HPI Comments History of Present Illness Details History - The patient is an 79-year-old female presenting with cough and fatigue. - She has ongoing symptoms related to a coronavirus infection. - She was seen here on Wednesday for a cough and had a CXR and resp panel done. - She tested positive for coronavirus and reports fatigue, nausea, diarrhea, and a dry cough. - The patient has a history of thyroid dysfunction and atrial fibrillation, with recent blood work indicating elevated thyroid levels. - She states that she has been taking Mucinex for the cough and it seems to have helped. - She was given Tessalon Perles and felt like she was just tired on them. - She states that she feels tired and run down. - She has been having to lay down and rest after shopping or activities. - She has been drinking fluids. - She is concerned because she has urinary frequency and wanted to make sure that she did not have a UTI. - She denies fever, chills, CP, SOB, abd pain, n/v/d, dysuria, hematuria, or back pain. Physical Exam General: Cooperative, healthy appearing, comfortable and no acute distress Orientation/consciousness: Patient oriented x3 Limitations: No limitations Head: Normal to inspection Ears: Hearing grossly normal bilaterally, external ears normal and TM's normal bilaterally Nose: Normal external nose present, normal nares present, and no nasal discharge present. Face and sinus: Sinuses nontender to palpation. Mouth: Normal oral and palatal mucosa present and moist mucous membranes noted. Throat: Tonsils normal. Uvula is midline. Posterior oropharynx with erythema and no exudates. Eyes: Appearance normal, both eyes and all related structures Neck: Normal visual inspection, full ROM. No lymphadenopathy noted. Respiratory: Clear to auscultation bilaterally. Normal respiratory effort, able to speak in complete sentences. No respiratory distress, not tachypneic, no tripod positioning and no use of accessory muscles. Cardiovascular: Regular rate and rhythm. Normal S1 and S2. No m/r/g noted. Skin: No rashes or lesions noted Patient was informed and verbally consented to the use of an ambient scribe for clinic note documentation during this visit [facility] Medical History HTN (hypertension) Paroxysmal atrial fibrillation Cataract Family History Father Myocardial infarct Mother Myocardial infarct Brother History of quadruple bypass Social History Household Members: None Housing: House Do you presently have visiting nurse or other home services: No Alcohol intake: current Alcohol intake frequency: holidays/special occasions only Alcohol type: wine Patient Tobacco Use Status: Never used Tobacco e-Cigarette/Vaping Use: Never Used service: No Current occupational status: retired Cognitive needs: No Hearing needs: No Vision needs: Yes (reading glasses) Review of Systems Const All systems reviewed & are unremarkable except as noted in HPI and below Physical Exam Vital Signs: Last Vital Signs Temp 97.8 F 02/01/25 12:25 Pulse 69 02/01/25 12:25 BP 136/78 02/01/25 12:25 Pulse Ox 97 02/01/25 12:25 Oxygen Delivery Method Room Air 02/01/25 12:25 BMI result Body Mass Index 29.7 Assessment & Plan Assessment & Plan (1) Fatigue: Code(s): R53.83 - Other fatigue Qualifiers: Fatigue type: due to exposure Encounter type: subsequent encounter Qualified Code(s): T73.2XXD - Exhaustion due to exposure, subsequent encounter (2) Cough: Code(s): R05.9 - Cough, unspecified Qualifiers: Cough type: acute Qualified Code(s): R05.1 - Acute cough Plan Most likely fatigue and cough from coronavirus OC43 UA 1+blood plan - Monitor symptoms and ensure adequate hydration and rest. - Consider symptomatic treatment for cough and fatigue. - will check a urine to r/o another source of infection - drink fluids - tylenol or motrin as needed - follow up with PCP Orders: Orders AMB Urinalysis Automated Today R30.0 - Dysuria Coding Level of Care Code Est Pt Level 3 (00302) Diagnoses Fatigue due to exposure, subsequent encounter T73.2XXD Fatigue type: due to exposure Encounter type: subsequent encounter Acute cough R05.1 Cough type: acute
== END 2025-02-01 13:47 | disposition home or self-care (01) ==
PROVIDERS: PCP Internal Medicine; Visit Provider Physician Assistant Medical
DX: T73.2XXD Exhaustion due to exposure, subsequent encounter (principal); R05.1 Acute cough; R30.0 Dysuria

== ENCOUNTER → 2025-02-01 12:18 | Outpatient (BNVA) | payer MEDICARE, SELFPAY | PROVIDERS: PCP Internal Medicine; Visit Provider Physician Assistant Medical | DX: R05.1 Acute cough (principal); T73.2XXD Exhaustion due to exposure, subsequent encounter; X58.XXXD Exposure to other specified factors, subsequent encounter; R30.0 Dysuria | CPT/HCPCS: 81003; 99212 ==

== ENCOUNTER 2025-02-13 09:21 | Outpatient (AMB) | payer MEDICARE, SELFPAY ==
--- NOTE | 2025-02-13 09:23 | MHC.OFFWIV ---
Intake Vital Signs 02/13/25 09:25 Height 5 ft 1 in Weight 157 lb BMI 29.7 BP 122/66 Blood Pressure Location Lt brachial Position Sitting Pulse 71 Pulse Source Pulse Oximeter Temp 97.7 F Temp Source Oral Pulse Oximetry (%) 98 Oxygen Delivery Method Room Air Intake Visit Reasons: EP Bad lower back pain Intake Note: pt presents with low back pain x2 days, denies any Urinary tract symptoms, reports degenerative discs Patient Tobacco Use Status: Never used Tobacco Allergies epinephrine (EPINEPHRINE) Allergy (Severe, Verified 02/13/25 09:27) EPI MIXED IN A LOCAL ANES. lOW BP LIGHTHEADEDNES, bradycardia amoxicillin (AMOXICILLIN) Allergy (Mild, Verified 02/13/25 09:27) RASH penicillin V Allergy (Unknown, Verified 02/13/25 09:) rash metoprolol Adverse Reaction (Intermediate, Uncoded 02/01/25 12:29) Fatigued Do you need a note to return to daycare/school/sports/work: No HPI HPI Comments History of Present Illness Details History - The patient is an 79-year-old female presenting with low back pain. - The low back pain began on Wednesday afternoon, two days prior to the visit. - The pain is described as a swath across the low back, affecting both sides, without radiation to the buttocks or legs. - The patient denies any loss of bladder or bowel control and reports no recent injury to the area. - The patient has a history of a fall in early January, where she tripped and fell face first, but did not report any immediate back pain following the incident. - The patient has been using heat therapy, which provides some relief, and has tried topical treatments like a generic version of Biofreeze. - The patient is on blood thinners and cannot take NSAIDs, but has been using Tylenol for pain management. - The patient has a history of degenerative disc disease in the lumbar area, identified through previous X-rays. - The patient reports a viral cough, identified as coronavirus OC 33, which has been persistent. + Review of Systems - Musculoskeletal: Reports low back pain without radiation to buttocks or legs. - Neurological: Denies loss of bladder or bowel control. - Respiratory: Reports persistent cough, denies dyspnea. All systems reviewed and are unremarkable except as noted in HPI Physical Exam General: cooperative, healthy appearing and comfortable, patient oriented x3 Head: Yes normal to inspection and Yes normocephalic General nose exam: Normal external nose present Face and sinus: Yes normal facial exam Effort & Inspection: normal respiratory effort and able to speak in complete sentences Back/spine: cervical, thoracic and lumbar spine normal to inspection cervical ROM normal, thoracic ROM normal, lumbar ROM normal no Cervical, thoracic or lumbar spine tenderness TTP on bilateral low back Extremities: moving extremities normally Neuro: A&O x3, gait normal [facility] Medical History HTN (hypertension) Paroxysmal atrial fibrillation Cataract Family History Father Myocardial infarct Mother Myocardial infarct Brother History of quadruple bypass Social History Household Members: None Housing: House Do you presently have visiting nurse or other home services: No Alcohol intake: current Alcohol intake frequency: holidays/special occasions only Alcohol type: wine Patient Tobacco Use Status: Never used Tobacco e-Cigarette/Vaping Use: Never Used service: No Current occupational status: retired Cognitive needs: No Hearing needs: No Vision needs: Yes (reading glasses) Physical Exam Vital Signs: Last Vital Signs Temp 97.7 F 02/13/25 09:25 Pulse 71 02/13/25 09:25 BP 122/66 02/13/25 09:25 Pulse Ox 98 02/13/25 09:25 Oxygen Delivery Method Room Air 02/13/25 09:25 BMI result Body Mass Index 29.7 Assessment & Plan Assessment & Plan (1) Bilateral low back pain without sciatica: Code(s): M54.50 - Low back pain, unspecified Qualifiers: Chronicity: acute Qualified Code(s): M54.50 - Low back pain, unspecified Plan: Plan - Prescribe cyclobenzaprine (Flexeril) 5 mg for muscle spasm relief, to be taken before bed to avoid daytime drowsiness. - Prescribe a 5-day course of prednisone 20 mg as an anti-inflammatory, given the patient's inability to take NSAIDs due to blood thinners. - Recommend continuation of heat therapy and topical treatments for symptomatic relief. - Advise follow-up with primary care provider in two days to assess progress and adjust treatment if necessary. Patient was informed and verbally consented to the use of an ambient scribe for clinic note documentation during this visit. Medications: New cyclobenzaprine 5 mg PO Q8H PRN 15 tabs 0RF Muscle Spasm prednisone 20 mg PO DAILY 5 tabs 0RF Coding Level of Care Code Est Pt Level 3 (33067) Diagnoses Acute bilateral low back pain without sciatica M54.50 Chronicity: acute
[2025-02-13 09:25] VITALS: BP 122/66; PULSE 71; TEMP 36.5; O2SAT 98; BMI 29.7
== END 2025-02-13 10:12 | disposition home or self-care (01) ==
PROVIDERS: PCP Internal Medicine; Visit Provider Physician Assistant
DX: M54.50 Low back pain, unspecified (principal)

== ENCOUNTER → 2025-02-13 09:21 | Outpatient (BNVA) | payer MEDICARE, SELFPAY | PROVIDERS: PCP Internal Medicine; Visit Provider Physician Assistant | DX: M54.50 Low back pain, unspecified (principal); Z91.81 History of falling | CPT/HCPCS: 99212 ==

== ENCOUNTER 2025-02-14 22:23 | Emergency (ER) | payer MEDICARE, SELFPAY ==
--- NOTE | ~2025-02-14 | XR_ITS ---
CLINICAL HISTORY: cough 2 view chest x-ray Comparison: CR/SR - XR CHEST 2 VIEWS - 01/29/25 14:44 EDT Findings: Left retrocardiac atelectasis. No significant pleural effusion or pneumothorax. Prominent cardiac silhouette. No acute fracture. Similar prominence of the aortic arch and descending thoracic aorta aneurysms not excluded. This may be further evaluated with CT. IMPRESSION: Left retrocardiac atelectasis. Additional findings described. This document has been electronically signed by: Oleg Minor MD on 02/15/2025 00:31:03
--- NOTE | ~2025-02-14 | XR_ITS ---
CLINICAL HISTORY: pain 4 views lumbar spine Comparison: None provided Findings: Grade 2 anterolisthesis at L4-L5. Chronic appearing compression deformities noted at L1 height loss, L2 along the superior endplate with mild height loss, L3 and L4 with mild height loss. No significant retropulsion. No acute appearing fracture lines. Foraminal stenoses at L5-S1. Osteopenia. Multilevel spondylosis with diffuse osteophytosis, facet arthropathy and degenerative disc disease. IMPRESSION: Chronic appearing changes without obvious acute fracture. If clinical concern persists consider follow-up MRI. This document has been electronically signed by: Oleg Minor MD on 02/15/2025 00:28:22
[2025-02-14 22:40] VITALS: BP 148/80; BP 189/88; PULSE 89; PULSE 91; RESP 20; TEMP 36.7; O2SAT 97; O2SAT 99; BMI 29.3
--- NOTE | 2025-02-14 23:00 | PC.NURSE ---
pt biba from home, a&ox4, respirations even and unlabored. pt reports lower back pain since wednesday that has worsened since. pt reports she was laying in bed and went to go to the bathroom and was unable to ambulate. on arrival, pt assisted to bathrooom with 1A and helped back into bed. vss
--- NOTE | 2025-02-14 23:45 | ECG_ITS ---
Test Reason : PAIN Blood Pressure : */* mmHG Vent. Rate : 70 BPM Atrial Rate : 70 BPM P-R Int : 192 ms QRS Dur : 94 ms QT Int : 422 ms P-R-T Axes : 33 -25 14 degrees QTcB Int : 455 ms Normal sinus rhythm Normal ECG When compared with ECG of 22-Nov-2023 14:31, Premature atrial complexes are no longer Present T wave amplitude has increased in Anterior leads Referred By: Woodrow Davila Electronically Signed By: ALBER KRAMER MD
--- OUTSIDE RECORDS SUMMARY | 2025-02-14 23:53 | XMS_ITS | Clinical Summary ---
Author Organization [facility] Address [address] [address] Phone Care Team Providers Care Professor Of Vegetable Science Name Role Phone Vinicius Rojas MD Primary [...] Devices Not on file Insurance [employer] [id number] [employer] [place] [employer] POS PPO REPLACEMENT [...] [place] PPO REPLACEMENT Care Teams Professor Of Vegetable Science Relationship Specialty Start Date End Date Vinicius Rojas MD [address] [place] [address] [place] [address] PCP - General Internal Medicine 05/13/18 Additional Source Comments The information contained in this document represents components of the legal health record. It is not the complete legal health record.[facility]
[2025-02-15 00:17] VITALS: BP 161/80; PULSE 75; RESP 18; TEMP 36.4; O2SAT 98
[2025-02-15] MEDS: oxyCODONE HCl Immed Release 5 MG TABLET 2.5 MG PO (00:17)
[2025-02-15 00:30] LABS: MANUAL DIFF FLAG NO
[2025-02-15 00:37] LABS: Appearance Urine Clear; Glucose Urine UA Negative (Negative); PH 7.5 (5.0-9.0); Specific Gravity - Urine 1.010 (1.005-1.025); UMIC TRIGGER UACC YES
[2025-02-15 00:39] LABS: Hematocrit 35.8 % (37.0-47.0); Hemoglobin 12.2 g/dl (12.0-16.0); Imm Gran Abs Auto 0.09 X10*3/uL (0.00-0.03); Imm Gran Pct Auto 0.8 % (0.0-0.4); Lymphocytes Absolute Auto 1.6 X10*3/uL (1.2-4.9); Mean Corpuscular HGB Conc 34.1 g/dl (31.0-35.0); Mean Corpuscular Hemoglobin 30.0 pg (27.0-33.0); Mean Corpuscular Volume 88.0 fL (80.0-98.0); NRBC Abs Auto 0.000 X10*3/uL (0.0-0.012); NRBC Pct Auto 0.0 /100WBC (0.0-0.2); Platelet Count 326 X10*3/uL (160-400); Red Blood Count 4.07 X10*6/uL (4.20-5.50); White Blood Count 12.0 X10*3/uL (4.8-10.8)
--- NOTE | 2025-02-15 00:43 | ED.GENADULT ---
HPI - General Adult General Chief complaint: Back Pain/Injury Stated complaint: back pain after coughing Time Seen by Provider: 02/14/25 22:50 Source: patient, RN notes reviewed and old records reviewed Mode of arrival: EMS Limitations: no limitations History of Present Illness ED Provider: Lola APONTE narrative: 79-year-old female with past medical history significant for coronary artery disease, hypertension, AFib on Eliquis, osteoporosis presents for evaluation of low back pain. The patient has had a dry cough since Wednesday. Since Wednesday she has had lower back pain that was more severe today. Her pain is worse when she coughs or takes a deep breath pain The pain is worse when she moves. She called the ambulance today because she was having so much pain she was unable to get out of bed she did fall on 02/03/2025, 11 days ago. She reports that she fell forward and did not land on her back, did not hit her head. She reports that she had no significant pain for over a week after that until last Wednesday she denies any fevers, chills pain Her pain does not radiate. She denies any bladder or bowel incontinence pain Denies any weakness to her legs she notes that her pain is slightly improved in the ER then prior to her transportation. She was able to walk to with the bathroom. The patient did see an urgent care 2 days ago and was prescribed cyclobenzaprine and prednisone. The patient is unable to take NSAIDs due to her anticoagulation she uses warm compresses and lidocaine patches as well with some relief. She feels though the Tylenol and cyclobenzaprine were not helping Related Data Home Medications ?Medication ?Instructions ?Recorded ?Confirmed cholecalciferol (vitamin D3) 50 50 mcg PO SA 10/26/23 02/15/25 mcg (2,000 unit) capsule flaxseed oil 1,000 mg capsule 1,000 mg PO BID@0900,1700 10/26/23 02/15/25 magnesium glycinate 100 mg (as 100 mg PO BID@0900,1700 10/26/23 02/15/25 glycinate) tablet multivitamin 1 tab PO DAILY 10/26/23 02/15/25 calcium carbonate 500 mg PO BID@0900,1700 01/10/24 02/15/25 acetaminophen 500 mg tablet 500 mg PO .bid PRN Pain, Mild 09/21/24 02/15/25 (Tylenol Extra Strength) alprazolam 0.25 mg tablet (Xanax) 0.125 mg PO BEDTIME PRN Anxiety 01/29/25 02/15/25 apixaban 5 mg tablet (Eliquis) 5 mg PO BID@0900,1700 02/15/25 02/15/25 diltiazem HCl 120 mg 120 mg PO DAILY@1700 02/15/25 02/15/25 capsule,extended release 24 hr flecainide 100 mg tablet 100 mg PO BID@0630,1700 02/15/25 02/15/25 levothyroxine 25 mcg capsule 25 mcg PO DAILY@0630 02/15/25 02/15/25 lisinopril 10 mg tablet 10 mg PO DAILY@17002/15/25 02/15/25 simvastatin 20 mg tablet 20 mg PO DAILY@1700 02/15/25 02/15/25 Previous Rx's ?Medication ?Instructions ?Recorded benzonatate 100 mg capsule 100 mg PO bid-tid PRN Cough 7 days 01/29/25 #21 caps cyclobenzaprine 5 mg tablet 5 mg PO Q8H PRN Muscle Spasm #15 02/13/25 tabs oxycodone 5 mg tablet 2.5 mg (1/2 x 5 mg) PO Q8H PRN 02/15/25 pain #5 tabs oxycodone 5 mg tablet 5 mg PO BID PRN severe pain (scale 02/15/25 score 7-10) #10 tabs Allergies Allergy/AdvReac Type Severity Reaction Status Date / Time epinephrine (EPINEPHRINE) Allergy Severe EPI MIXED Verified 02/14/25 22:50 IN A LOCAL ANES. lOW BP LIGHTHEADEDNES, bradycardia amoxicillin (AMOXICILLIN) Allergy Mild RASH Verified 02/14/25 22:50 penicillin V Allergy Unknown rash Verified 02/14/25 22:50 metoprolol AdvReac Intermediate Fatigued Uncoded 02/14/25 22:50 Review of Systems Constitutional: Constitutional: Denies body ache(s), Denies chills, Denies fever(s) and Denies headache(s) Eyes: Eyes: Denies blurry vision ENT: Denies dizziness, Denies dry mouth, Denies headache(s) and Denies neck pain Cardiovascular: Cardiovascular: Denies chest pain and Denies dyspnea on exertion Respiratory: Respiratory: Denies cough and Denies dyspnea on exertion Gastrointestinal: Gastrointestinal: Denies abdominal pain, Denies nausea and Denies vomiting Genitourinary: Genitourinary: Denies difficulty voiding, Denies dysuria, Denies pelvic pain and Denies flank pain Musculoskeletal: Musculoskeletal: Reports back pain, Denies muscle weakness, Denies neck pain, Denies numbness, Denies radiating pain into limb and Reports stiffness Integumentary/Breasts: Skin/Breast: Denies rash Neurologic: Denies dizziness, Denies headache(s) and Denies numbness [facility] Past Medical History Medical History HTN (hypertension) Paroxysmal atrial fibrillation Cataract Family History Family History Father Myocardial infarct Mother Myocardial infarct Brother History of quadruple bypass Social History Social History Household Members: None Housing: House Do you presently have visiting nurse or other home services: No Alcohol intake: current Alcohol intake frequency: holidays/special occasions only Alcohol type: wine Patient Tobacco Use Status: Never used Tobacco Smoked in Last 30 Days: No e-Cigarette/Vaping Use: Never Used Use of substances other than those prescribed or required for medical reasons: No Advance Directives: No Advance Directives Information Provided: Yes Do you have a plan to hurt others: No Plan service: No Current occupational status: retired Cognitive needs: No Hearing needs: No Vision needs: Yes (reading glasses) Physical Exam ED Vital Signs: Vital Signs - 24 hr 02/14/25 22:40 02/15/25 00:17 02/15/25 04:17 Temperature 98.0 F 97.5 F 97.7 F Pulse Rate 89 75 69 Respiratory Rate 20 18 20 Blood Pressure 189/88 H 161/80 H 152/78 H Pulse Oximetry 99 98 97 Oxygen Delivery Method Room Air Room Air Room Air 02/15/25 09:43 02/15/25 11:59 Temperature 98.5 F Pulse Rate 80 Respiratory Rate 18 Blood Pressure 153/71 H 165/76 H Pulse Oximetry 100 98 Oxygen Delivery Method Room Air BMI result Body Mass Index 29.3 Const General: healthy appearing, comfortable, no acute distress, alert and awake Nutritional Appearance: well nourished Orientation/consciousness: patient oriented x3 HENMT Head: Yes normocephalic and Yes atraumatic Eyes Eyelids: Yes eyelids normal Conjunctivae: conjunctivae normal Sclerae: sclerae normal Corneas: corneas normal Pupils: Equal, round and reactive pupils present EOM: EOMs intact bilaterally Neck Neck: Yes full ROM Resp Effort & Inspection: normal respiratory effort, able to speak in complete sentences, no audible wheezes and not labored Auscultation: clear to auscultation bilaterally Cardio Rate: regular rate Rhythm: regular rhythm GI Inspection: No distended Palpation (GI): Soft to palpation, not firm, nontender, no guarding and not rigid Back/Spine/Pelvis Other: No skin changes to the back. there is tenderness across the lumbar spine paraspinous region bilaterally. No step-offs or deformities. Negative straight leg raise. Skin General skin exam: elasticity normal Neuro General: patient oriented x3 Cranial nerves: Yes Equal, round and reactive pupils present and Yes Bilaterally intact EOM present Cognition (Neuro): normal cognition Extrem Other: Moving all extremities well without any obvious deformities Course Reevaluation(s) Reevaluation #1: patient's sodium is low at 127, she has not had any nausea, vomiting, diarrhea. she is not altered in any way, no lightheadedness or dizziness. She is not on any diuretics, denies any increased urinary frequency. She does endorse drinking water daily and occasionally drinking 2 bottles of water from her water bottle. She does not feel this is in excess. We will treat her with a L of IV fluids and we will fluid restrict her for the night and recheck her sodium in the morning. the patient's chest x-ray shows a similar prominence aortic arch and descending thoracic aorta aneurysm is not completely excluded. The patient has no chest pain, no upper back pain or abdominal pain. This is not appear to be an active problem. And again, the appearance is similar. her pain is in the lumbar sacral region Time: 01:23 Reevaluation #2: Time: 08:12 Date: 02/15/25 Provider: Rosangela Servin PA-C Patient was placed in physician observation for case management needs at 136 am this morning. She has sodium level measured at 127 yesterday and was given 1L with plans to check this morning is is now 132. She was fluid restricted overnight. No other electrolyte imbalance.? No current issues or complaints. VS stable. Patient is pending PT/CM eval. Will continue to monitor. Code status is UTD. 1023: med reconciliation done. 1417: Patient has been accepted to [facility]. Plan to go there tomorrow at 9 am via BLS. SHe will need paper RX for oxycodone. rX PRINTED AND given to medical unit secretary. Time: 15:20 Date: 02/15/25 Provider: Rosangela Servin PA-C Physician observation ended at 320pm. Patient has been cleared for discharge by the CARE team. Patient to be placed at a rehab facility. Her friend has elected to bring her there. Medications Administered Generic Name Dose Route Start Last Admin Trade Name Freq PRN Reason Stop Dose Admin Acetaminophen 650 mg 02/15/25 10:40 02/15/25 13:48 Acetaminophen 325 Mg Tablet PO 650 mg BID PRN Administration Pain, Mild Apixaban 5 mg 02/15/25 10:30 02/15/25 10:47 Apixaban 5 Mg Tablet PO 5 mg BID@0900,1700 MAYA Administration Flecainide Acetate 100 mg 02/15/25 11:00 02/15/25 11:16 Flecainide Acetate 50 Mg Tablet PO 100 mg BID@0630,1700 MAYA Administration Levothyroxine Sodium 25 mcg 02/15/25 10:30 02/15/25 11:16 Levothyroxine Sodium 25 Mcg Tablet PO 25 mcg DAILY@0630 MAYA Administration Multivitamins/Vitamin C 1 tab 02/15/25 10:30 02/15/25 10:47 Multivitamin Tablet PO 1 tab DAILY MAYA Administration Discontinued Medications Generic Name Dose Route Start Last Admin Trade Name Freq PRN Reason Stop Dose Admin Acetaminophen 650 mg 02/15/25 06:21 02/15/25 06:24 Acetaminophen 325 Mg Tablet PO 02/15/25 06:22 650 mg ONCE ONE Administration Sodium Chloride 1,000 mls @ 999 mls/hr 02/15/25 01:00 02/15/25 03:19 Ns IV 02/15/25 02:00 Infused .Q1H1M MAYA Infusion Oxycodone HCl 2.5 mg 02/14/25 23:45 02/15/25 00:17 Oxycodone Hcl Immed Release 5 Mg Tablet PO 02/14/25 23:46 2.5 mg ONCE ONE Administration Medical Decision Making Medical Decision Making [facility] Narrative: 79-year-old female presents for evaluation of lower back pain. She denies any falls in the last week but did have a fall just under 2 weeks ago. She denies hurting herself from the fall. She has been coughing since Wednesday. I suspect that her pain is related to muscle spasms likely from coughing. However given the fall 2 weeks ago and the coughing we will get a chest x-ray and a lumbar spine x-ray. Her pain is quite reproducible on palpation of the lumbar region bilaterally. She has no abdominal pain or tenderness on exam. No chest pain, lungs are clear to auscultation. I doubt that there is a cardiac or GI component of her Back pain. She has no symptoms. She is willing to try oxycodone 2.5 mg while awaiting her workup. Differential Diagnosis Differential Diagnoses: The differential diagnosis associated with the presentation includes Muscle strain Disc herniation Sciatica Radiculopathy Constipation Lab Data [facility] Lab Attestation statement: I reviewed the patient's lab results. mild leukocytosis to 12.0 1000 with a left shift. No significant anemia. I suspect the leukocytosis could be related to her viral illness causing her cough over the last few days. 02/15/25 00:23 02/15/25 04:06 Labs: Lab Results 02/15/25 02/15/25 02/15/25 Range/Units 00:23 04:06 10:21 WBC 12.0 H (4.8-10.8) X10*3/uL RBC 4.07 L (4.20-5.50) X10*6/uL Hgb 12.2 (12.0-16.0) g/dl Hct 35.8 L (37.0-47.0) % MCV 88.0 (80.0-98.0) fL MCH 30.0 (27.0-33.0) pg MCHC 34.1 (31.0-35.0) g/dl RDW 13.2 (11.0-16.0) % Plt Count 326 (160-400) X10*3/uL MPV 8.0 L (9.4-12.3) fL Immature Gran % (Auto) 0.8 H (0.0-0.4) % Neut % (Auto) 78.7 H (45-73) % Lymph % (Auto) 13.5 L (20-40) % [place] % (Auto) 6.5 (2-11) % Eos % (Auto) 0.2 (0-4) % Baso % (Auto) 0.3 (0-2) % Lymph # (Auto) 1.6 (1.2-4.9) X10*3/uL [place] # (Auto) 0.8 (0.1-1.2) X10*3/uL Eos # (Auto) 0.0 (0.0-0.4) X10*3/uL Baso # (Auto) 0.0 (0.0-0.2) X10*3/uL Abs Immat Gran (auto) 0.09 H (0.00-0.03) X10*3/uL Absolute Neuts (auto) 9.4 H (2.0-8.3) x10*3/uL Absolute Nucleated RBC 0.000 (0.0-0.012) X10*3/uL Nucleated RBC % (auto) 0.0 (0.0-0.2) /100WBC Sodium 127 L 132 L (135-145) mmol/L Potassium 4.2 4.0 (3.3-5.1) mmol/L Chloride 93 L 99 (96-108) mmol/L Carbon Dioxide 25 25 (22-29) mmol/L Anion Gap 13 12 (12-20) BUN 14 10 (9-16) mg/dL Creatinine 0.58 0.57 (0.5-1.4) mg/dL Estim Creat Clear Calc 68.2 69.4 Estimated GFR > 60 > 60 Random Glucose 110 90 (60-115) mg/dL Calcium 9.3 8.5 D (8.4-10.2) mg/dL Total Bilirubin 0.3 (0.0-1.0) mg/dL AST 32 H (5-31) U/L ALT 30 (0-31) U/L Alkaline Phosphatase 69 (39-117) U/L Total Protein 7.0 (6.5-8.0) g/dL Albumin 4.3 (3.5-5.0) g/dL Lipase 29 (8-78) U/L Urine Color Yellow Urine Appearance Clear Urine pH 7.5 (5.0-9.0) Ur Specific [place] 1.010 (1.005-1.025) Urine Protein Negative (Neg-Trace) mg/dL Urine Glucose (UA) Negative (Negative) mg/dL Urine Ketones Trace (Negative) mg/dL Urine Blood Trace H (Negative) Urine Nitrite Negative (Negative) Ur Leukocyte Esterase Negative (Negative) Urine RBC 6-10 H (0-2) /HPF Urine WBC 0-5 (0-5) /HPF Ur Squamous Epith Cells 3-5 (0-2) /HPF Urine Bacteria None Seen (None Seen) Hyaline Casts 0-2 (0-2) /LPF COVID-19 (JESSICA) Negative (Negative) COVID-19 Clin Com See Note Discharge Plan Discharge Clinical Impression: Strain of lumbar region, Acute hyponatremia Patient Disposition: Xfer Inpatient Rehab Fac Transfer Details: via private vehicle Instructions: Back Pain (ED) Additional Instructions: You were seen in the emergency department today for increasing low back pain since this past Wednesday. He had have overall reassuring workup and will be going to a short-term rehabilitation center to help increase his strength in her lower back into reduce the pain. He had been given a prescription to use for severe pain. This already contains Tylenol in it. Return immediately to the Emergency Department if you develop any increased or uncontrolled pain, numbness, tingling, or weakness of the extremities, difficulty urinating or passing stools. Please see your doctor or an orthopedist if not improving over the next 1-2 weeks. Prescriptions: New oxycodone 5 mg tablet 2.5 mg PO Q8H PRN (Reason: pain) Qty: 5 0RF Rx Instructions: Partial Fill upon patient request. oxycodone 5 mg tablet 5 mg PO BID PRN (Reason: severe pain (scale score 7-10)) Qty: 10 0RF Rx Instructions: Partial Fill upon patient request. No Action simvastatin 20 mg tablet 20 mg PO DAILY@1700 lisinopril 10 mg tablet 10 mg PO DAILY@1700 flecainide 100 mg tablet 100 mg PO BID@0630,1700 diltiazem HCl 120 mg capsule,extended release 24hr 120 mg PO DAILY@1700 levothyroxine 25 mcg capsule 25 mcg PO DAILY@0630 Eliquis 5 mg tablet 5 mg PO BID@0900,1700 flaxseed oil 1,000 mg capsule 1,000 mg PO BID@0900,1700 Rx Instructions: administer with meals multivitamin Tablet 1 tab PO DAILY magnesium glycinate 100 mg tablet 100 mg PO BID@0900,1700 cholecalciferol (vitamin D3) 50 mcg (2,000 unit) capsule 50 mcg PO SA calcium carbonate 500 mg calcium (1,250 mg) tablet 500 mg PO BID@0900,1700 acetaminophen [Tylenol Extra Strength] 500 mg tablet 500 mg PO .bid PRN (Reason: Pain, Mild) cyclobenzaprine 5 mg tablet 5 mg PO Q8H PRN (Reason: Muscle Spasm) Qty: 15 0RF alprazolam [Xanax] 0.25 mg tablet 0.125 mg PO BEDTIME PRN (Reason: Anxiety) benzonatate 100 mg capsule 100 mg PO bid-tid PRN (Reason: Cough) 7 Days Qty: 21 0RF Referrals: [facility] [Outside] [facility] [Provider Group] Print Language: Slovak
[2025-02-15 00:46] LABS: Alanine Aminotransferase 30 U/L (0-31); Albumin Level 4.3 g/dL (3.5-5.0); Alkaline Phosphatase 69 U/L (39-117); Anion Gap 13 (12-20); Aspartate Amino Transferase 32 U/L (5-31); Blood Urea Nitrogen 14 mg/dL (9-16); Calcium 9.3 mg/dL (8.4-10.2); Carbon Dioxide 25 mmol/L (22-29); Chloride 93 mmol/L (96-108); Creatinine Clr Calc Pharmacy 68.2; Estimated Glomerular Filt Rate > 60; Lipase 29 U/L (8-78); Potassium 4.2 mmol/L (3.3-5.1); Sodium 127 mmol/L (135-145); Total Protein 7.0 g/dL (6.5-8.0)
[2025-02-15 04:17] VITALS: BP 152/78; PULSE 69; RESP 20; TEMP 36.5; O2SAT 97
[2025-02-15 04:24] LABS: Anion Gap 12 (12-20); Blood Urea Nitrogen 10 mg/dL (9-16); Calcium 8.5 mg/dL (8.4-10.2); Carbon Dioxide 25 mmol/L (22-29); Chloride 99 mmol/L (96-108); Creatinine Clr Calc Pharmacy 69.4; Estimated Glomerular Filt Rate > 60; Potassium 4.0 mmol/L (3.3-5.1); Sodium 132 mmol/L (135-145)
[2025-02-15 09:43] VITALS: BP 153/71; O2SAT 100
--- NOTE | 2025-02-15 10:36 | PHA.MEDREC ---
Pharmacy Consult ? Medication Reconciliation Pharmacy has completed the medication reconciliation. Reviewed med rec done by nursing, matches claims and tagman visit from October.
[2025-02-15 11:03] LABS: COVID-19 Test Negative (Negative); IDNOW Serial# 08D9AD1C
--- NOTE | 2025-02-15 11:34 | MHC.CM.ED ---
Addendum entered by Sarah Marquez 02/15/25 12:26: [facility] is able to offer a bed and is in the process of obtaining ins auth. Original Note: Received case management consult overnight. Patient came to the ER due to back pain. Work up essentially negative. Physical therapy eval completed. Short term rehab is recommended. Met with patient in regards to discharge planning. 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 Patient lives alone, ambulates independently and had no services prior to coming to the ER. PCP verified. List of facilities contracted with [facility] provided to patient. [facility] is 1st choice. Patient agreeable to referral being broadcasted in [facility] is unable to offer a bed. Referral made via [facility]. Continue to monitor for d/c needs.
[2025-02-15 11:59] VITALS: BP 165/76; PULSE 80; RESP 18; TEMP 36.9; O2SAT 98
[2025-02-15 14:00] VITALS: BP 158/76; PULSE 71; RESP 18; TEMP 36.6; O2SAT 97
--- NOTE | 2025-02-15 14:16 | MHC.CM.ED ---
Addendum entered by Sarah Marquez 02/15/25 15:39: [facility] requesting if family/friend can transport patient to facility today. Evie CANDELARIA spoke with patient. Patient and friend agreeable. [facility] requesting patient arrive around 430pm. Transfer packet printed by ER membership secretary. ER d/c summary sent to [facility] via [facility]. Patient, Evie CANDELARIA and Rosangela CRUMP aware. Original Note: [facility] has ins auth. [place] [facility] booked for 02/16 at 9am. [facility] with chart. Patient, Evie CANDELARIA and Rosangela CRUMP aware. Continue to monitor for d/c needs.
[2025-02-15 15:30] VITALS: BP 158/76; PULSE 71; RESP 18; TEMP 36.6; O2SAT 97
[2025-02-15] MEDS: dilTIAZem HCL CD 120 MG CAP.ER.DEG PO (16:57)
== END 2025-02-15 17:15 ==
PROVIDERS: Physician Assistant; Physician Assistant Medical; Emergency Provider Student in an Organized Health Care Education/Training Program; PCP Internal Medicine
DX: S39.012A Strain of muscle, fascia and tendon of lower back, initial encounter (principal); M62.830 Muscle spasm of back; R05.9 Cough, unspecified; I48.0 Paroxysmal atrial fibrillation; I10 Essential (primary) hypertension; X58.XXXA Exposure to other specified factors, initial encounter; Y93.89 Activity, other specified; Y92.89 Other specified places as the place of occurrence of the external cause; Y99.8 Other external cause status; Z79.01 Long term (current) use of anticoagulants
CPT/HCPCS: 36415; 71046; 72100; 80048; 80053; 81001; 83690; 85025; 87635; 93005; 96360; 96361; 97162; 99285

== ENCOUNTER → 2025-02-14 23:45 | Outpatient (BNV) | payer MEDICARE, SELFPAY | PROVIDERS: Emergency Provider Student in an Organized Health Care Education/Training Program; PCP Internal Medicine; Visit Provider Radiology Diagnostic Radiology | DX: M54.50 Low back pain, unspecified (principal); J98.11 Atelectasis | CPT/HCPCS: 71046; 72100 ==

== ENCOUNTER → 2025-02-14 23:45 | Outpatient (BNV) | payer MEDICARE, SELFPAY | PROVIDERS: Emergency Provider Student in an Organized Health Care Education/Training Program; PCP Internal Medicine; Visit Provider Internal Medicine Cardiovascular Disease | DX: R07.9 Chest pain, unspecified (principal) | CPT/HCPCS: 93010 ==

== ENCOUNTER 2025-02-26 14:45 | Outpatient (AMB) | payer MEDICARE, SELFPAY ==
--- NOTE | 2025-02-26 08:05 | MHC.PC.OV ---
Vital Signs 02/26/25 15:09 Height 5 ft 1 in Weight 159 lb 6 oz BMI 30.1 BP 134/80 Blood Pressure Location Rt brachial Position Sitting Pulse 77 Pulse Source Pulse Oximeter Temp 97.5 F Temp Source Temporal Artery Scan Pulse Oximetry (%) 98 Oxygen Delivery Method Room Air Intake Visit Reasons: GINO/Croke (see comments) Relay Motorman Required: No Accompanied by: Self / Same As Patient Allergies epinephrine (EPINEPHRINE) Allergy (Severe, Verified 02/26/25 08:06) EPI MIXED IN A LOCAL ANES. lOW BP LIGHTHEADEDNES, bradycardia amoxicillin (AMOXICILLIN) Allergy (Mild, Verified 02/26/25 08:06) RASH penicillin V Allergy (Unknown, Verified 02/26/25 08:06) rash metoprolol Adverse Reaction (Intermediate, Uncoded 02/14/25 22:50) Fatigued Medication List - Last Reconciled 02/27/25 by ALISIA Koroma acetaminophen (Tylenol Extra Strength) 1,000 mg (2 x 500 mg) PO Q4H PRN 3 days alprazolam (Xanax) 0.125 mg PO BEDTIME PRN apixaban (Eliquis) 5 mg PO BID@0900,1700 calcium carbonate 500 mg PO BID@0900,1700 cholecalciferol (vitamin D3) 50 mcg PO SA cyclobenzaprine take one or two orally 3 times a day; diltiazem HCl CD 120 mg PO DAILY@1700 flaxseed oil 1,000 mg PO BID@0900,1700 flecainide 100 mg PO BID@0630,1700 levothyroxine 25 mcg PO DAILY@0630 lisinopril 10 mg PO DAILY@1700 magnesium glycinate 100 mg PO BID@0900,1700 multivitamin 1 tab PO DAILY oxycodone 5 mg PO BID PRN oxycodone 2.5 mg (1/2 x 5 mg) PO Q8H PRN simvastatin 20 mg PO DAILY@1700 Tobacco use date assessed: 02/26/25 Fall risk assessment: No Falls in past year Last assessed Fall Risk: 02/26/25 Dental Screening Dental Screen Date: 02/26/25 Did you have a dental visit in the last 12 months?: Yes Did you have a dental problem in the last 6 months where you did not have access to dental care?: No HPI HPI Comments History of Present Illness Details The patient is an 79-year-old female with CAD, HTN, Afib on Eliquis, Osteoporosis, Anxiety, back pain hypothyroidism and low vitamin D presenting for follow-up after a recent hospitalization for severe back pain. The back pain was severe, to the point she could barely turn over in bed, which prompted her to call for help and subsequent hospitalization and rehab. [0] The working diagnosis from the hospital was severe muscle spasm. The patient reports a history of a similar, less severe episode a few years ago that also resulted in an ER visit, which her prior physician, Dr. Grady, diagnosed as SI joint instability. [1, 2] She feels this current episode may be the same issue but is significantly more severe. [2] X-rays have shown evidence of compression fractures of indeterminate age. [3, 4] She also has diagnoses of generalized arthritis and some osteoporosis. [4] Physical therapy personnel also mentioned sciatic nerve involvement on both sides. [4] She reports a fall forward on February 03, several days before the back pain started, although she sustained no apparent injuries from the fall. [14, 15] Associated with the back pain onset, she had a severe cold beginning January 24, characterized by a deep, dry, non-productive cough, which was diagnosed as Coronavirus OC43. [16, 17, 19] The cough lasted for three weeks and resolved the day her severe back pain began, with a theory that the intense coughing may have contributed to her back issue. [19, 20] She was prescribed prednisone for the cough, which she discontinued due to feeling jumpy, and Tessalon Perles. [17] She developed oral thrush, possibly related to prednisone, and is being treated with Nystatin. [21, 22] During her recent hospitalization, she was also found to have hyponatremia, which has not been an issue for her in the past. [3, 29] Her pain management regimen upon discharge from rehab included Tylenol, Flexeril, and oxycodone as needed. [7, 9] Despite this, she experienced a night of severe, 10/10 pain with confusion, which prompted a call to the on-call physician who increased her Flexeril to 10 mg. [9, 10] She has been using topical diclofenac, menthol, and a lumbar support brace. [25, 28] The patient reports several other ongoing issues. [40] She has had worsening urinary incontinence, progressing from light pad use to requiring Depends pull-ups, which she attributes to both mobility issues from pain and increased urgency. [41, 42] She has a pessary for urgency and is followed by urology. [43] She also reports chronic constipation, which has been present for several months since a medication change from amiodarone to flecainide, and has worsened with recent oxycodone use. [45, 46] She manages this with a regimen of stool softeners and MiraLax, though she experienced diarrhea today. [47, 48, 49] She notes a peculiar symptom of feeling weak and needing to lie down before a bowel movement, which resolves after defecation. [50] Additional chronic conditions include shaking hands for a couple of years, which affects her handwriting and is sometimes more noticeable, possibly essential tremor, as her mother had it. [56, 57] She also reports two episodes of dysphagia with solid foods (meatloaf, chicken) where she felt the food was stuck. [54] For health maintenance, she is due for a DEXA scan and mammogram, for which she already has appointments scheduled. [4, 35] Medical History: - Severe low back pain with muscle spasm, recently hospitalized - Sacroiliac joint instability - Vertebral compression fractures (of indeterminate age) - Osteoporosis - Generalized arthritis - Atrial fibrillation, treated with flecainide and Eliquis - Hyponatremia (during recent hospitalization) - History of falls, most recently on February 03 - Recent Coronavirus OC43 infection (January) - Oral candidiasis (thrush) - Urinary incontinence with urgency, managed with a pessary - Chronic constipation - Dysphagia - Hand tremor, suspected essential tremor Patient was informed and verbally consented to the use of an ambient scribe for clinic note documentation during this visit. [facility] Medical History (Updated 02/27/25 @ 13:49 by ALISIA Koroma) Cataract Chronic low back pain Constipation HTN (hypertension) Hyponatremia Oral thrush Paroxysmal atrial fibrillation Tremor Urinary incontinence Family History (Updated 02/26/25 @ 15:16 by Pauline Hansen MA) Father Myocardial infarct Mother Myocardial infarct Brother History of quadruple bypass Social History Household Members: None Housing: House Do you presently have visiting nurse or other home services: No Alcohol intake: current Alcohol intake frequency: holidays/special occasions only Alcohol type: wine Patient Tobacco Use Status: Never used Tobacco e-Cigarette/Vaping Use: Never Used service: No Current occupational status: retired Cognitive needs: Yes (wheelchair) Hearing needs: No Vision needs: Yes (reading glasses) Questionnaire PHQ-9 Over the last 2 weeks, how often have you been bothered by any of the following problems? 1. Little interest or pleasure in doing things: not at all 2. Feeling down, depressed, or hopeless: several days 3. Trouble falling or staying asleep, or sleeping too much: nearly every day 4. Feeling tired or having little energy: several days (trouble falling asleep ) 5. Poor appetite or overeating: not at all 6. Feeling bad about yourself - or that you are a failure or have let yourself or your family down: not at all 7. Trouble concentrating on things, such as reading the newspaper or watching television: not at all 8. Moving or speaking so slowly that other people could have noticed. Or the opposite - being so fidgety or restless that you have been moving around a lot more than usual: not at all 9. Thoughts that you would be better off or of hurting yourself in some way: not at all Total score: 5 Depression Screening Interpretation: Negative Depression Screening Done: Yes Source: Developed by Drs. Mendoza Lawson, Belen Blanc, Jonathon Bey and colleagues, with an educational rayray from [employer]. Thrive Questionnaire Date Thrive assessed: 02/26/25 I am a: Patient Within the past 12 months, did the food you bought not last and you didn't have the money to get more?: Never true Within the past 12 months, did you worry whether your food would run out before you got money to buy more?: Never true Do you have trouble paying for medicines?: No Do you have trouble getting transportation to medical appointments?: No Do you have trouble paying your heating and electricity bill?: No Do you have trouble taking care of your child, family member or friend?: No Do you have trouble with day-to-day activities such as bathing, preparing meals, shopping, managing finances, etc.?: No Are you currently unemployed and looking for a job?: No Are you interested in more education?: No THRIVE Score: 0 AUDIT C Alcohol Use Questionnaire (AUDIT-C) 1. How often do you have a drink containing alcohol?: Monthly or less 2. How many drinks containing alcohol do you have on a typical day when you are drinking?: 1 or 2 3. How often do you have six or more drinks on one occasion?: Less than monthly Total Score: 2 TEENA-7 AMB Questionnaire TEENA-7 Date TEENA - 7 assessed: 02/26/25 Feeling nervous, anxious, or on edge: 0 = Not at all Not being able to stop or control worryin = Several days Worrying too much about different things: 0 = Not at all Trouble relaxin = Not at all Being so restless that it is hard to sit still: 0 = Not at all Becoming easily annoyed or irritable: 0 = Not at all Feeling afraid as if something awful might happen: 0 = Not at all Total TEENA-7 score (0-4 normal; 5-9 mild; 10-14 moderate; 15-21 severe): 1 Source: Developed by Drs. Mendoza Lawson, Belen Blanc, Jonathon Bey and colleagues, with an educational rayray from [employer]. Review of Systems Narrative - Constitutional: Denies fever. [17] Reports feeling weak prior to bowel movements. [50] - HEENT: Reports intermittent crackly voice and dry mouth. [21, 22] Reports resolving symptoms of oral thrush. [22] - Respiratory: Reports recent history of a severe, deep, dry, non-productive cough which has since resolved. [16, 20] Denies current cough. [20] - Gastrointestinal: Reports chronic constipation that has worsened recently. [46, 47] Reports experiencing diarrhea today. [49] Reports presyncopal-like symptoms of weakness before a bowel movement that resolve afterward. [50] Reports recent episodes of dysphagia with solids. [54] - Genitourinary: Reports worsened urinary incontinence, requiring use of adult diapers due to a combination of increased urgency and decreased mobility. [41, 42] - Musculoskeletal: Reports severe back pain, which limits mobility. [0] Reports having arthritis everywhere. [4] - Neurological: Reports shaking hands for a couple of years, which can affect handwriting. [56, 57] Reports a recent episode of confusion at night associated with severe pain. [9] - Psychiatric: Reports feeling jumpy as a side effect of prednisone. [17] Reports feeling anxious. [59] Physical exam (Primary Care) Vital Signs: Last Vital Signs Temp 97.5 F 02/26/25 15:09 Pulse 77 02/26/25 15:09 BP 134/80 02/26/25 15:09 Pulse Ox 98 02/26/25 15:09 Oxygen Delivery Method Room Air 02/26/25 15:09 BMI result Body Mass Index 30.1 GENERAL Well developed, obese, in no apparent distress HEENT Head-Normocephalic Neck- Supple, No lymphadenopathy, thyroid WNL RESPIRATORY Normal I:E, Clear to auscultation CARDIOVASCULAR Regular, rate and rhythm, No murmurs or rubs GASTROINTESTINAL Soft, nontender, normal bowel sounds, no masses MUSCULOSKELETAL Back-Decreased ROM, Tender in Lumbar with muscle tightness, Tender with motion, DTR 2+ symmetrical, Gait - in wheel chair Joints- no swelling or deformity NEUROLOGICAL Gait in wheel chair PSYCHIATRIC Oriented to person, place and time Mood and affect WNL Appearance WNL Speech WNL Thought processes WNL Tobacco/Smoking Status: Tobacco use Status Tobacco use date assessed 02/26/25 02/26/25 08:06 Patient Tobacco Use Status Never used Tobacco 02/26/25 08:06 e-Cigarette/Vaping Use Never Used 02/26/25 08:06 PHQ-9: PHQ-9 Score PHQ-9: Total score 5 02/27/25 13:49 Depression Screening Interpretation: Negative Thrive Assessment: Date of Thrive Assessment Date Thrive assessed 02/26/25 02/26/25 08:06 Results Reviewed Results Reviewed: - Labs: Sodium was low during recent hospitalization. - Imaging: Back X-ray showed evidence of compression fractures of indeterminate age. - Other Diagnostics: Nasal swab positive for Coronavirus OC43. Coding Level of Care Code Established Pt Est Pt Level 5 (93606) Patient Type Established Diagnoses Hyponatremia E87.1 Chronic low back pain M54.50; G89.29 Oral thrush B37.0 Constipation K59.00 Urinary incontinence R32 Tremor R25.1 Time Spent (min) 40 Comment Time spent on chart review, medication reconciliation, H&P, patient education, orders. Assessment & Plan Assessment & Plan (1) Hyponatremia: Code(s): E87.1 - Hypo-osmolality and hyponatremia Category: Medical Plan: The patient was found to have low sodium during her recent hospitalization, with an unclear etiology. [3, 29] An order for lab work will be placed to recheck her sodium level. [29, 35] The patient can have the labs drawn at a local facility without fasting. [59, 75] (2) Chronic low back pain: Code(s): M54.50 - Low back pain, unspecified; G89.29 - Other chronic pain Category: Medical Plan: The patient's severe back pain, diagnosed as a muscle spasm but with a history of SI joint instability and compression fractures, is causing significant functional impairment. [0, 1, 2, 4] The pain has been severe, reaching 10/10 with associated confusion. [9] The plan is to manage her pain multi-modally. [13] A referral will be placed for a pain specialist evaluation to consider interventions such as an injection. [14, 35] She will continue with home physical therapy. [6] For medication management, she will continue scheduled Tylenol and cyclobenzaprine 10 mg TID for about another 1-2 weeks. [13, 37] A prescription for cyclobenzaprine 5 mg tablets will be sent. [60, 61] A small quantity of oxycodone 5 mg tablets will be prescribed for severe breakthrough pain, to be used only as needed to stay ahead of the pain. [12, 23, 36, 38] She is advised to continue using topical diclofenac and lidocaine, which can be applied together, and her lumbar support brace when up and about. [26, 28] (3) Oral thrush: Code(s): B37.0 - Candidal stomatitis Category: Medical (4) Constipation: Code(s): K59.00 - Constipation, unspecified Category: Medical Plan: The patient has chronic constipation, exacerbated by recent opioid use, which she is managing with MiraLax and stool softeners. [46, 47] The current regimen has led to diarrhea. [48, 49] She also reports feeling weak and unwell prior to bowel movements, which may be related to vagal stimulation from constipation. [50, 51] She is advised to continue the stool softeners twice daily and to titrate the MiraLax dose, including holding tonight's dose, to avoid diarrhea. [48, 49] If her bowels become more regular and the pre-defecation symptoms do not resolve, a referral to gastroenterology will be considered. [53] (5) Urinary incontinence: Code(s): R32 - Unspecified urinary incontinence Category: Medical Plan: The patient's urinary incontinence has worsened, requiring her to use adult diapers. [41] This is compounded by pain-related mobility issues. [42] She has a pessary and an established relationship with a urologist. She will continue with her plan to see the urologist for follow-up next month. [45] (6) Tremor: Code(s): R25.1 - Tremor, unspecified Category: Medical Plan: The patient reports a hand tremor for a couple of years, which may be an essential tremor given her family history. [56, 57] It is exacerbated by anxiety. [59] The plan is to monitor the tremor. [58] If it worsens, a referral to a neurologist will be made for further evaluation. [58] Plan - Back Pain: Continue taking Tylenol and Cyclobenzaprine (Flexeril) as scheduled. [13] A new prescription for Cyclobenzaprine will be sent to your pharmacy. [60] You will also get a small prescription for Oxycodone for severe breakthrough pain. [12, 36] Take it if your pain gets bad, but try not to wait until it is unbearable. [13, 38] You can use the Diclofenac and Lidocaine topical gels together. [26] - Oral Thrush: Continue using the Nystatin liquid for 2-3 more days, then you can stop. [31] - Constipation: Continue taking your stool softener twice a day. [48] If you have diarrhea, skip a dose of MiraLax. You can adjust the MiraLax dose as needed to keep your bowels regular without causing diarrhea. [48, 49] - Appointments and Tests: We will put in a referral for you to see a pain specialist. [35] Please go to the lab to get your blood drawn to check your sodium level; you do not need to fast. [75] Keep your scheduled appointments for your mammogram, DEXA scan, and urology visit. [35, 45] - Vaccinations: Wait another couple of weeks before getting your flu shot, until you feel stronger. [35] - Home Care: Continue to work with your home physical and occupational therapists. [63] They will help with your mobility and assess your home for safety. [64] - Please follow up in our office in six weeks. [62, 75] If anything changes or you have concerns before then, please call us. [76] Orders: Orders Electrolytes 02/26/25 E87.1 - Hypo-osmolality and hyponatremia Referrals Pain Management Referral G89.29 - Other chronic pain, M54.50 - Low back pain, unspecified Medications: New cyclobenzaprine take one or two orally 3 times a day; 60 tabs 1RF for back pain Refilled oxycodone Partial Fill upon patient request. 2.5 mg (1/2 x 5 mg) PO Q8H PRN 10 tabs 0RF pain Discontinued cyclobenzaprine Discontinued Reason: Doctor's Order 10 mg PO TID 7 days PRN 21 tabs 0RF muscle spasm
[2025-02-26 15:09] VITALS: BP 134/80; PULSE 77; TEMP 36.4; O2SAT 98; BMI 30.1
== END 2025-02-26 15:58 | disposition home or self-care (01) ==
LOC: HO.HMCHD 14:45
PROVIDERS: PCP Internal Medicine; Visit Provider Physician Assistant Medical
DX: E87.1 Hypo-osmolality and hyponatremia (principal); M54.50 Low back pain, unspecified; G89.29 Other chronic pain; B37.0 Candidal stomatitis; K59.00 Constipation, unspecified; R32 Unspecified urinary incontinence; R25.1 Tremor, unspecified

== ENCOUNTER 2025-02-26 14:45 | Outpatient (REF) | payer MEDICARE, SELFPAY ==
--- OUTSIDE RECORDS SUMMARY | 2025-02-26 17:11 | XMS_ITS | Clinical Summary ---
Author Organization [facility] Address [address] [address] Phone Care Team Providers Care Senior Embedded Software Engineer Name Role Phone Vinicius Rojas MD Primary [...] Devices Not on file Insurance [employer] [id number] [employer] [place] [employer] POS PPO REPLACEMENT [...] [place] MED[place] PPO REPLACEMENT Care Teams Senior Embedded Software Engineer Relationship Specialty Start Date End Date Vinicius Rojas MD [address] [place] [address] [address] [place] [address] PCP - General Internal Medicine 05/13/18 Additional Source Comments The information contained in this document represents components of the legal health record. It is not the complete legal health record.[facility]
[2025-02-26 17:35] LABS: Anion Gap 13 (12-20); Carbon Dioxide 28 mmol/L (22-29); Chloride 97 mmol/L (96-108); Potassium 4.5 mmol/L (3.3-5.1); Sodium 133 mmol/L (135-145)
== END 2025-02-26 14:46 | disposition home or self-care (01) ==
LOC: HO.LAB 14:45
PROVIDERS: PCP Physician Assistant Medical; Visit Provider Physician Assistant Medical
DX: E87.1 Hypo-osmolality and hyponatremia (principal); R32 Unspecified urinary incontinence; K59.09 Other constipation; R25.1 Tremor, unspecified; M54.50 Low back pain, unspecified; G89.29 Other chronic pain; B37.0 Candidal stomatitis; Z79.891 Long term (current) use of opiate analgesic; Z79.899 Other long term (current) drug therapy
CPT/HCPCS: 36415; 80051; 96127

== ENCOUNTER 2025-03-07 10:09 | Outpatient (REF) | payer MEDICARE, SELFPAY ==
--- NOTE | ~2025-03-07 | MM_ITS ---
EXAMINATION: DXA BONE DENSITY AXIAL HISTORY: M81.0 - Age-related osteoporosis without current pathological fracture TECHNIQUE: [employer] Dual energy absorptiometry (DEXA) of the lumbar spine, total left hip, and femoral neck was performed. COMPARISON: Comparison is made with the prior examination most recent from April 2022. FINDINGS: The bone mineral density of the lumbar spine (L1-L3) is 1.055 g/cm2, corresponding to a T-score of -1.0, and a Z-score of 0.7. This is indicative of normal bone mineral density. This represents a BMD change of 11.2% compared to the prior exam. This is statistically significant. The bone mineral density of the left total hip is 0.774 g/cm2, corresponding to a T-score of -1.9, and a Z-score of 0.1. This is indicative of osteopenia. This represents a BMD change of -1.5% compared to the prior exam. This is not statistically significant. The bone mineral density of the left femoral neck is 0.714 g/cm2, corresponding to a T-score of -2.3, and a Z-score of -0.2. This is indicative of osteopenia. This represents a BMD change of 0.6% compared to the prior exam. This is not statistically significant. FRACTURE RISK: The FRAX index suggests a ten year probability of major osteoporotic fracture of 17.5%, and of hip fracture 5.9%. MM/XR DEXA axial skeleton IMPRESSION: Based on bone mineral density, and according to World Health Organization (WHO) criteria, the diagnosis is consistent with osteopenia based on lowest T score of -2.3 in the left femoral neck. Bone mineral density appears improved in the spine compared to prior exam. Treatment Recommendations: NOF guidelines recommend consideration for treatment in postmenopausal women and men age 50 and older presenting with the following: -A hip or vertebral (clinical or morphometric) fracture. -T-score less than or equal to -2.5 at the femoral neck or spine after appropriate evaluation to exclude secondary causes. -Low bone mass at the hip or spine and a 10-year fracture probability by FRAX of greater than or equal to 3% for hip fracture or greater than or equal to 20% for major osteoporotic fracture based on the [place] adapted WHO algorithm. Other Recommendations: All treatment decisions require clinical judgment and consideration of individual patient factors, including patient preferences, comorbidities, previous drug use, risk factors not captured in the FRAX model (e.g. frailty, falls, vitamin D deficiency, increased bone turnover, interval significant decline in bone density) and possible under or overestimation of fracture risk by FRAX. Additional medical evaluation for secondary cause of low bone mineral density may be appropriate. FUTURE SCAN RECOMMENDATION: People with diagnosed cases of osteoporosis or at high risk for fracture should have regular bone mineral density tests. For patients eligible for Medicare, routine testing is allowed once every 2 years. The testing frequency can be increased to one year for patients who have rapidly progressing disease, those who are receiving or discontinuing medical therapy to restore bone mass, or have additional Statistically, 68% of repeat scans fall within 1 SD (+/- 0.010 g/cm2 for AP spine L1-L4) and 1 SD (+/- 0.012 g/cm2 for femur total) FRAX is a trademark of the [employer] [place] [employer] Metabolic Bone Disease, a World Health Organization (WHO) Collaborating Center. Electronically signed by: Dafne Corey MD 03/07/2025 11:32 AM [facility] [place]
--- OUTSIDE RECORDS SUMMARY | 2025-03-07 11:55 | XMS_ITS | Clinical Summary ---
Author Organization [facility] Address [address] [address] Phone Care Team Providers Care Administrative Appeals Tribunal Member Name Role Phone Vinicius Rojas MD Primary [...] Devices Not on file Insurance [employer] [id number] [employer] [place] [employer] POS PPO REPLACEMENT [...] [place] MED[place] POS PPO REPLACEMENT Care Teams Administrative Appeals Tribunal Member Relationship Specialty Start Date End Date Vinicius Rojas MD [address] [place] [address] [place] [address] PCP - General Internal Medicine 05/13/18 Additional Source Comments The information contained in this document represents components of the legal health record. It is not the complete legal health record.[facility]
== END 2025-03-07 10:10 | disposition home or self-care (01) ==
LOC: HO.MAMMO 10:09
PROVIDERS: PCP Physician Assistant Medical; Visit Provider Physician Assistant Medical
DX: Z12.31 Encounter for screening mammogram for malignant neoplasm of breast (principal); M81.0 Age-related osteoporosis without current pathological fracture
CPT/HCPCS: 77063; 77067; 77080

== ENCOUNTER → 2025-03-07 10:30 | Outpatient (BNV) | payer MEDICARE, SELFPAY | PROVIDERS: PCP Physician Assistant Medical; Visit Provider Radiology Diagnostic Radiology | DX: E28.39 Other primary ovarian failure (principal) | CPT/HCPCS: 77080 ==

== ENCOUNTER 2025-03-08 09:10 | Emergency (ER) | payer MEDICARE, SELFPAY ==
--- NOTE | ~2025-03-08 | CT_ITS ---
EXAMINATION: CT CERVICAL SPINE WITHOUT CONTRAST CLINICAL INFORMATION: fall. Head strike. On Eliquis COMPARISON: Radiographs of the cervical spine on June 16, 2016 TECHNIQUE: CT of the cervical spine was obtained without administration of intravenous contrast. Images were reconstructed in axial, coronal and sagittal planes. This CT examination was performed using dose optimization techniques as appropriate, variously including the following: *Automated exposure control *Adjustment of mA and/or kV according to patient size (this includes techniques or standardized protocols for targeted exams where dose is matched to indication/reason for exam; i.e. extremities or head) *Use of iterative reconstruction technique FINDINGS: Alignment: Reversal of the cervical lordosis. Mild anterolisthesis of C3 on C4 and C4 on C5. Vertebrae: No compression fracture. Small marginal osteophytes in the mid cervical spine. Posterior elements are intact. Intervertebral discs: Endplate changes with marginal osteophytes and disc space narrowing is more prominent at C6-C7, and in lesser degree at C4-C5 and C5-C6. Craniocervical junction: Normal alignment. No fracture. Soft tissue: Prevertebral and posterior paraspinal soft tissues are unremarkable. Other findings: 1.4 cm left thyroid nodule (14:50/59). No apical pneumothorax. CT/CT cervical spine wo IV con IMPRESSION: No acute findings. Electronically signed by: Martina Hazel MD 03/08/2025 11:10 AM NIA
--- NOTE | ~2025-03-08 | CT_ITS ---
EXAMINATION: CT HEAD WITHOUT CONTRAST CLINICAL INFORMATION: Fall, head strike, hematoma. On Eliquis COMPARISON: Head CT on October 20, 2023 TECHNIQUE: Contiguous axial imaging was performed from the skull base to vertex without intravenous administration of contrast. This CT examination was performed using dose optimization techniques as appropriate, variously including the following: *Automated exposure control *Adjustment of mA and/or kV according to patient size (this includes techniques or standardized protocols for targeted exams where dose is matched to indication/reason for exam; i.e. extremities or head) *Use of iterative reconstruction technique FINDINGS: Brain parenchyma: No shift of midline structures. No parenchymal hemorrhage, mass effect or evidence of acute territorial infarct. Moderate amount of confluent patchy areas of hypodensity throughout the white matter of bilateral cerebral hemispheres likely represents a manifestation of chronic small vessel ischemic changes; this is similar to September 2023. Ventricles/extra-axial spaces: Prominence of the brain sulci and ventricles, likely age appropriate. No hydrocephalus. No extra-axial fluid collection. Extracranial structures: Paranasal sinuses and mastoid air cells are clear. Bilateral orbital globes appear unremarkable. Vascular calcifications. Skull/soft tissues: No depressed skull fracture. Moderate size scalp hematoma in the right parietal region. CT/CT head/brain wo IV con IMPRESSION: 1. No acute intracranial pathology. 2. Moderate-sized scalp hematoma in the right parietal region. Electronically signed by: Martina Hazel MD 03/08/2025 10:39 AM NIA
[2025-03-08 09:20] VITALS: BP 149/71; BP 150/80; PULSE 67; PULSE 69; RESP 16; TEMP 36.8; O2SAT 98; BMI 29.7
--- NOTE | 2025-03-08 09:50 | PC.NURSE ---
Patient returned from CT scan, results pending. Labs to be drawn for analysis.
[2025-03-08 10:12] LABS: MANUAL DIFF FLAG NO
[2025-03-08 10:14] LABS: Hematocrit 34.7 % (37.0-47.0); Hemoglobin 11.9 g/dl (12.0-16.0); Imm Gran Abs Auto 0.03 X10*3/uL (0.00-0.03); Imm Gran Pct Auto 0.4 % (0.0-0.4); Lymphocytes Absolute Auto 0.8 X10*3/uL (1.2-4.9); Mean Corpuscular HGB Conc 34.3 g/dl (31.0-35.0); Mean Corpuscular Hemoglobin 30.6 pg (27.0-33.0); Mean Corpuscular Volume 89.2 fL (80.0-98.0); NRBC Abs Auto 0.000 X10*3/uL (0.0-0.012); NRBC Pct Auto 0.0 /100WBC (0.0-0.2); Platelet Count 307 X10*3/uL (160-400); Red Blood Count 3.89 X10*6/uL (4.20-5.50); White Blood Count 6.8 X10*3/uL (4.8-10.8)
[2025-03-08 10:30] LABS: Anion Gap 11 (12-20); Blood Urea Nitrogen 12 mg/dL (9-16); Calcium 9.2 mg/dL (8.4-10.2); Carbon Dioxide 27 mmol/L (22-29); Chloride 101 mmol/L (96-108); Creatinine Clr Calc Pharmacy 60.3; Estimated Glomerular Filt Rate > 60; Potassium 4.2 mmol/L (3.3-5.1); Sodium 135 mmol/L (135-145)
--- NOTE | 2025-03-08 10:39 | ED.FALL ---
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 States accidentally dropped a few pieces and attempted to pick it up however fell to ground. Denies LOC. Denies symptoms prior to fall including lightheadedness / dizziness. Reports headache at present and acute on chronic back pain, unchanged. Denies neck/ back pain, nausea, vomiting, vision change/ loss, incontinence/retention Related Data Home Medications ?Medication ?Instructions ?Recorded ?Confirmed cholecalciferol (vitamin D3) 50 50 mcg PO SA 10/26/23 02/27/25 mcg (2,000 unit) capsule flaxseed oil 1,000 mg capsule 1,000 mg PO BID@0900,1700 10/26/23 02/27/25 magnesium glycinate 100 mg (as 100 mg PO BID@0900,1700 10/26/23 02/27/25 glycinate) tablet multivitamin 1 tab PO DAILY 10/26/23 02/27/25 calcium carbonate 500 mg PO BID@0900,1700 01/10/24 02/27/25 alprazolam 0.25 mg tablet (Xanax) 0.125 mg PO BEDTIME PRN Anxiety 01/29/25 02/27/25 apixaban 5 mg tablet (Eliquis) 5 mg PO BID@0900,1700 02/15/25 02/27/25 diltiazem HCl 120 mg 120 mg PO DAILY@1700 02/15/25 02/27/25 capsule,extended release 24 hr flecainide 100 mg tablet 100 mg PO BID@0630,1700 02/15/25 02/27/25 levothyroxine 25 mcg capsule 25 mcg PO DAILY@0630 02/15/25 02/27/25 lisinopril 10 mg tablet 10 mg PO DAILY@1700 02/15/25 02/27/25 simvastatin 20 mg tablet 20 mg PO DAILY@1700 02/15/25 02/27/25 Previous Rx's ?Medication ?Instructions ?Recorded oxycodone 5 mg tablet 5 mg PO BID PRN severe pain (scale 02/15/25 score 7-10) #10 tabs acetaminophen 500 mg tablet 1,000 mg (2 x 500 mg) PO Q4H PRN 02/25/25 (Tylenol Extra Strength) Pain, Mild 3 days #21 tabs cyclobenzaprine 5 mg tablet See Rx Instructions PO TID for 02/26/25 back pain #60 tabs oxycodone 5 mg tablet 2.5 mg (1/2 x 5 mg) PO Q8H PRN 02/26/25 pain #10 tabs nystatin 100,000 unit/mL oral See Rx Instructions PO QID thrush 03/01/25 suspension 7 days #120 mL Allergies Allergy/AdvReac Type Severity Reaction Status Date / Time epinephrine (EPINEPHRINE) Allergy Severe EPI MIXED Verified 03/08/25 09:24 IN A LOCAL ANES. lOW BP LIGHTHEADEDNES, bradycardia amoxicillin (AMOXICILLIN) Allergy Mild RASH Verified 03/08/25 09:24 penicillin V Allergy Unknown rash Verified 03/08/25 09:24 metoprolol AdvReac Intermediate Fatigued Uncoded 03/08/25 09:24 Review of Systems Review of Systems: Yes all other systems are reviewed and are negative Constitutional: Constitutional: Reports as per HPI Neurologic: Denies Abnormal speech present [facility] Past Medical History Attestation statement: The following information was validated with the patient. Source: old records reviewed Medical History Tremor Urinary incontinence Constipation Oral thrush Hyponatremia Chronic low back pain HTN (hypertension) Paroxysmal atrial fibrillation Cataract Family History Family History Father Myocardial infarct Mother Myocardial infarct Brother History of quadruple bypass Social History Social History Household Members: None Housing: House Do you presently have visiting nurse or other home services: No Alcohol intake: current Alcohol intake frequency: holidays/special occasions only Alcohol type: wine Patient Tobacco Use Status: Never used Tobacco e-Cigarette/Vaping Use: Never Used Advance Directives: No Advance Directives Information Provided: Yes service: No Current occupational status: retired Cognitive needs: Yes (wheelchair) Hearing needs: No Vision needs: Yes (reading glasses) Physical Exam Vital Signs: Vital Signs: Last Vital Signs Temp 98.2 F 03/08/25 09:20 Pulse 69 03/08/25 09:20 Resp 16 03/08/25 09:20 BP 149/71 H 03/08/25 09:20 Pulse Ox 98 03/08/25 09:20 O2 Del Method Room Air 03/08/25 09:20 BMI result Body Mass Index 29.7 Const: General: cooperative, healthy appearing and no acute distress Orientation/consciousness: patient oriented x3 Limitations: no limitations HEENT: Other: + posterior scalp hematoma noted. Mildly tender. No palpable step-off Head: Yes normal to inspection and Yes hematoma Ears: hearing grossly normal bilaterally General nose exam: Normal external nose present Face and sinus: Yes normal facial exam Mouth: Normal oral and palatal mucosa present Throat: Yes posterior oropharynx normal Eyes: General: appearance normal, both eyes and all related structures Pupils: Equal, round and reactive pupils present EOM: EOMs intact bilaterally Neck: Other: C-collar in place. No midline cervical tenderness Neck: Yes normal visual inspection and Yes no meningeal signs Resp: Effort & Inspection: normal respiratory effort and no respiratory distress Cardio: Rate: regular rate GI: Inspection: Yes normal to inspection Palpation (GI): Soft to palpation, nontender, no guarding and not rigid : General: Yes no CVA tenderness Back/Spine/Pelvis: Other: No midline cervical/thoracic/lumbar spinous tenderness/step-off or deformity Back: no CVA tenderness Skin: Rashes: no rashes Wounds: no wounds Neuro: General: patient oriented x3, tone normal, moves all extremities, no meningeal signs, no focal motor deficits and CN's II-XI intact bilaterally Cranial nerves: Yes CN's II-XII intact bilaterally, Yes Equal, round and reactive pupils present and Yes Bilaterally intact EOM present Cognition (Neuro): normal cognition Speech: No Abnormal speech present Motor exam (neuro): 5/5 motor strength present throughout and no tremor noted Extrem: General: Yes normal to inspection Course Course Course Narrative: - labs reassuring 1053--CT head/brain wo IV con IMPRESSION: 1. No acute intracranial pathology. 2. Moderate-sized scalp hematoma in the right parietal region. CT cervical spine wo IV con IMPRESSION: No acute findings. > daughter at bedside is requesting 3 more days of oxycodone and Flexeril for patient at home. patient has been taking since discharge from [facility] for back pain. Worried that fall exacerbated symptoms. Has follow up with PCP next week. Results discussed with patient including worrisome signs and symptoms and strict return precautions, and when to return to the emergency department. They verbalized understanding and feel safe for discharge at this time. 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 On exam vital signs stable, NAD, nontoxic appearing, physical exam as noted above with posterior scalp hematoma. No focal deficits. No midline tenderness. Concern for hematoma vs ICH vs fracture plan: Labs, head / C-spine CT Please refer to course for remaining clinical decision making, interpretation of labs/imaging results, and discussions with consultants and/or family members. Differential Diagnosis Differential Diagnoses: The differential diagnosis associated with the presentation includes As above Admission/Observation Consideration of admission/observation: Escalation of care including admission/observation considered Lab Data [facility] Lab Attestation statement: I reviewed the patient's lab results. 03/08/25 10:07 03/08/25 10:07 Labs: Lab Results 03/08/25 Range/Units 10:07 WBC 6.8 (4.8-10.8) X10*3/uL RBC 3.89 L (4.20-5.50) X10*6/uL Hgb 11.9 L (12.0-16.0) g/dl Hct 34.7 L (37.0-47.0) % MCV 89.2 (80.0-98.0) fL MCH 30.6 (27.0-33.0) pg MCHC 34.3 (31.0-35.0) g/dl RDW 13.7 (11.0-16.0) % Plt Count 307 (160-400) X10*3/uL MPV 8.0 L (9.4-12.3) fL Immature Gran % (Auto) 0.4 (0.0-0.4) % Neut % (Auto) 80.2 H (45-73) % Lymph % (Auto) 12.1 L (20-40) % Geary % (Auto) 6.2 (2-11) % Eos % (Auto) 0.7 (0-4) % Baso % (Auto) 0.4 (0-2) % Lymph # (Auto) 0.8 L (1.2-4.9) X10*3/uL Geary # (Auto) 0.4 (0.1-1.2) X10*3/uL Eos # (Auto) 0.1 (0.0-0.4) X10*3/uL Baso # (Auto) 0.0 (0.0-0.2) X10*3/uL Abs Immat Gran (auto) 0.03 (0.00-0.03) X10*3/uL Absolute Neuts (auto) 5.4 (2.0-8.3) x10*3/uL Absolute Nucleated RBC 0.000 (0.0-0.012) X10*3/uL Nucleated RBC % (auto) 0.0 (0.0-0.2) /100WBC Sodium 135 (135-145) mmol/L Potassium 4.2 (3.3-5.1) mmol/L Chloride 101 (96-108) mmol/L Carbon Dioxide 27 (22-29) mmol/L Anion Gap 11 L (12-20) BUN 12 (9-16) mg/dL Creatinine 0.66 (0.5-1.4) mg/dL Estim Creat Clear Calc 60.3 Estimated GFR > 60 Random Glucose 98 (60-115) mg/dL Calcium 9.2 D (8.4-10.2) mg/dL Independent Interpretation I performed an independent interpretation of an: CT Scan Radiology Impression Discussion of test interpretation with radiology: I have reviewed the radiologist's reading. Independent Historian Clinical information obtained from an independent historian. History obtained from or confirmed by: EMS External Record Review External record reviewed: Inpatient record, Office record, Outpatient record, Prior outpatient labs, Prior outpatient radiology, Primary care record and Outside ED record Tests considered The following testing was considered but not selected: As above Prescription Management I considered prescription management with: Pain Medication Chronic Conditions Patient?s care impacted by: Other Social Determinants Patient?s care significantly limited by Social Determinants of Health including: Other Social Determinant of Health Discharge Plan Discharge Clinical Impression: Scalp hematoma Patient Disposition: Home, Self-Care Instructions: Scalp Contusion in Adults (ED) Additional Instructions: your blood work is reassuring Your CAT scan shows a scalp hematoma. No fractures or intracranial bleeding Ice Take Tylenol for pain Follow up with your primary care doctor If you develop constant worsening/unremitting headache, vision change or loss, weakness, nausea or vomiting return to the ED Prescriptions: No Action acetaminophen [Tylenol Extra Strength] 500 mg tablet 1,000 mg PO Q4H PRN (Reason: Pain, Mild) 3 Days Qty: 21 0RF nystatin 100,000 unit/mL suspension See Rx Instructions PO QID 7 Days Qty: 120 0RF Rx Instructions: 4ml swish and swallow orally 4 times a day simvastatin 20 mg tablet 20 mg PO DAILY@1700 lisinopril 10 mg tablet 10 mg PO DAILY@1700 flecainide 100 mg tablet 100 mg PO BID@0630,1700 diltiazem HCl 120 mg capsule,extended release 24hr 120 mg PO DAILY@1700 levothyroxine 25 mcg capsule 25 mcg PO DAILY@0630 Eliquis 5 mg tablet 5 mg PO BID@0900,1700 oxycodone 5 mg tablet 5 mg PO BID PRN (Reason: severe pain (scale score 7-10)) Qty: 10 0RF Rx Instructions: Partial Fill upon patient request. flaxseed oil 1,000 mg capsule 1,000 mg PO BID@0900,1700 Rx Instructions: administer with meals multivitamin Tablet 1 tab PO DAILY magnesium glycinate 100 mg tablet 100 mg PO BID@0900,1700 cholecalciferol (vitamin D3) 50 mcg (2,000 unit) capsule 50 mcg PO SA calcium carbonate 500 mg calcium (1,250 mg) tablet 500 mg PO BID@0900,1700 alprazolam [Xanax] 0.25 mg tablet 0.125 mg PO BEDTIME PRN (Reason: Anxiety) oxycodone 5 mg tablet 2.5 mg PO Q8H PRN (Reason: pain) Qty: 10 0RF Rx Instructions: Partial Fill upon patient request. cyclobenzaprine 5 mg tablet See Rx Instructions PO TID Qty: 60 1RF Rx Instructions: take one or two orally 3 times a day; Referrals: Inna Eli PA [Primary Care Provider, Internal Medicine] - 3 days Print Language: Mohawk
--- OUTSIDE RECORDS SUMMARY | 2025-03-08 11:09 | XMS_ITS | Clinical Summary ---
Author Organization [facility] Address [address] [address] Phone Care Team Providers Care Strategic Account Manager Name Role Phone Vinicius Rojas MD Primary [...] on patient's age to complete this topic IPV VACCINES Aged Out No longer eligi ble based on patient's age to complete this topic MENINGOCOCCAL VACCINES (ACWY) Aged Out No longer eligible based on patient's age to complete this topic MENINGOCOCCAL VACCINES (B) Aged Out N o longer eligible based on patient's age to complete this topic Medical Devices Not on file Insurance [employer] [id number] [employer] [place] [address] [employer] [place] [address] [employer] [place] [address] [facility] MEDIC[facility] POS PPO REPLACEMENT [employer] [place] POS PPO REPLACEMENT [employer] POS PPO REPLACEMENT MEDICARE POS PPO REPLACEMENT [employer] POS PPO REPLACEMENT [employer] PPO REPLACEMENT Care Teams Strategic Account Manager Relationship Specialty Start Date End Date Vinicius Rojas MD [address] [place] [address] [place] [address] PCP - General Internal Medicine 05/13/18 Additional Source Comments The information contained in this document represents components of the legal health record. It is not the complete legal health record.[facility]
[2025-03-08 12:30] VITALS: BP 149/71; PULSE 69; RESP 16; TEMP 36.8; O2SAT 98
== END 2025-03-08 12:30 | disposition home or self-care (01) ==
PROVIDERS: Physician Assistant; Emergency Provider Emergency Medicine; PCP Physician Assistant Medical
DX: S00.03XA Contusion of scalp, initial encounter (principal); X58.XXXA Exposure to other specified factors, initial encounter; Y93.9 Activity, unspecified; Y92.9 Unspecified place or not applicable; Y99.8 Other external cause status; R51.9 Headache, unspecified
CPT/HCPCS: 36415; 70450; 72125; 80048; 85025; 99282

== ENCOUNTER → 2025-03-08 09:35 | Outpatient (BNV) | payer MEDICARE, SELFPAY | PROVIDERS: Emergency Provider Emergency Medicine; PCP Physician Assistant Medical; Visit Provider Radiology Body Imaging | DX: S09.90XA Unspecified injury of head, initial encounter (principal); S00.03XA Contusion of scalp, initial encounter; I67.82 Cerebral ischemia; Z04.3 Encounter for examination and observation following other accident | CPT/HCPCS: 70450; 72125 ==

== ENCOUNTER 2025-03-08 18:29 | Emergency (ER) | payer MEDICARE, SELFPAY ==
--- NOTE | ~2025-03-08 | CT_ITS ---
CLINICAL HISTORY: fall +HS on [employer] [facility] cervical spine without contrast Comparison: CT/[place]/SR - CT CERVICAL SPINE WITHOUT IV CONTRAST - 03/08/2025 09:44 AM EST Findings: There is reversal of the normal cervical lordosis which may be positional. There is grade 1 anterolisthesis of C3 on C4 and C4 on C5. No acute fractures or dislocations. Multilevel facet arthropathy. Endplate sclerosis and uncovertebral hypertrophy worst C6-C7. No high-grade spinal canal narrowing. Soft tissues of the neck are normal. No consolidation or effusion at the lung apices. IMPRESSION: No acute fracture of the cervical spine. No change compared to prior exam earlier this same date. This document has been electronically signed by: Iris Florentino MD on 03/08/2025 21:57:53
--- NOTE | ~2025-03-08 | CT_ITS ---
CLINICAL HISTORY: fall +HS on [employer] CT Head without contrast Comparison: CT/REG/MD/SR - CT HEAD WITHOUT IV CONTRAST - 10/20/23 08:23 EDT Findings: Advanced white matter hypodensities most likely secondary to prior infarcts and chronic ischemic small vessel disease. No large vessel territory infarct. No acute intracranial hemorrhage. No mass effect, midline shift, or herniation. The pituitary gland and sella are unremarkable. The cerebellar tonsils are appropriately positioned. Orbits: The lenses have been replaced. Paranasal sinuses: Well aerated. The mastoid air cells are well aerated. Soft tissue hematoma of the right parietal scalp measuring 7 mm in thickness. No underlying displaced calvarial fracture. Impression: No acute osseous abnormality. Right parietal scalp hematoma measuring 7 mm in thickness. No underlying displaced calvarial fracture. Advanced chronic ischemic small vessel disease. This document has been electronically signed by: Iris Florentino MD on 03/08/2025 21:42:37
--- NOTE | ~2025-03-08 | XR_ITS ---
CLINICAL HISTORY: cp 1 view chest x-ray Comparison: CR - XR CHEST 2V - 02/15/25 00:00 EDT Findings: Lungs are well inflated. Cardiac silhouette is unchanged in size. No focal areas of consolidation. No pleural effusion or pneumothorax. IMPRESSION: 1. No acute findings. This document has been electronically signed by: Adolph Mayers MD on 03/09/2025 00:44:43
[2025-03-08 18:33] VITALS: BP 140/80; BP 190/87; PULSE 86; PULSE 87; TEMP 36.6; O2SAT 98; O2SAT 99
[2025-03-08 18:48] VITALS: BP 190/87; PULSE 85; RESP 18; TEMP 36.6; O2SAT 100; BMI 26.8
--- NOTE | 2025-03-08 19:21 | PC.NURSE ---
verbal order obtained from Dr. Reza for CT head/neck as ordered as pt had a fall +HS & on eliquis.
[2025-03-08 19:30] VITALS: BP 182/74; PULSE 85; RESP 18; TEMP 36.6; O2SAT 99
[2025-03-08 21:57] VITALS: BP 151/76; PULSE 80; RESP 18; TEMP 36.6; O2SAT 98
--- NOTE | 2025-03-08 23:30 | ECG_ITS ---
Test Reason : CP Blood Pressure : */* mmHG Vent. Rate : 90 BPM Atrial Rate : 90 BPM P-R Int : 216 ms QRS Dur : 102 ms QT Int : 388 ms P-R-T Axes : 41 -35 24 degrees QTcB Int : 474 ms Sinus rhythm with sinus arrhythmia with 1st degree A-V block Left axis deviation Minimal voltage criteria for LVH, may be normal variant ( Jovan product ) Abnormal ECG When compared with ECG of 15-Feb-2025 00:02, No significant change was found Referred By: Jyothi Reza Electronically Signed By: ALBER KRAMER MD
--- NOTE | 2025-03-08 23:35 | PC.NURSE ---
per Reza, ambulation trial attempted with pt using walker. upon standing up pt is dizzy/shaky and felt unwell. attempted to take a couple steps and felt unsafe/dizzy. pt returned to stretcher. pt and daughter Rufina both verbalize feeling unsafe with discharge home d/t increased falls and pt living home alone. this RN/Renea RN agreeable with this. MD made aware. per MD would like repeat labs/ekg/orthos and ivf.
--- NOTE | 2025-03-08 23:38 | ED.FALL ---
HPI - Fall General Chief Complaint: Fall Stated Complaint: fall, headstrike Time Seen by Provider: 03/08/25 19:19 Source: patient, EMS and RN notes reviewed Mode of arrival: ambulatory History of Present Illness HPI Narrative: patient is 79 years old with a history of atrial fibrillation history of coronary artery disease. Fell earlier today. Got home and then had a 2nd fall. Patient claims she is very unsteady, baseline uses a walker.. She slipped. Hit the back of her head. Patient is on Eliquis for the atrial fibrillation. Did not lose consciousness did not have any new focal weakness. Related Data Home Medications ?Medication ?Instructions ?Recorded ?Confirmed flaxseed oil 1,000 mg capsule 1,000 mg PO BID@0900,1700 10/26/23 03/09/25 magnesium glycinate 100 mg (as 100 mg PO DAILY@0900 10/26/23 03/09/25 glycinate) tablet multivitamin 1 tab PO DAILY@0900 10/26/23 03/09/25 calcium carbonate 500 mg PO BID@0900,1700 01/10/24 03/09/25 alprazolam 0.25 mg tablet (Xanax) 0.125 mg PO BEDTIME PRN Anxiety 01/29/25 03/09/25 apixaban 5 mg tablet (Eliquis) 5 mg PO BID@0900,1700 02/15/25 03/09/25 diltiazem HCl 120 mg 120 mg PO DAILY@1700 02/15/25 03/09/25 capsule,extended release 24 hr flecainide 100 mg tablet 100 mg PO BID@0900,1700 02/15/25 03/09/25 levothyroxine 25 mcg capsule 25 mcg PO DAILY@0600 02/15/25 03/09/25 lisinopril 10 mg tablet 10 mg PO DAILY@1700 02/15/25 03/08/25 simvastatin 20 mg tablet 20 mg PO DAILY@1700 02/15/25 03/09/25 cholecalciferol (vitamin D3) 125 125 mcg PO SA 03/09/25 03/09/25 mcg (5,000 unit) tablet (Vitamin D3) cyclobenzaprine 5 mg tablet 10 mg PO TID PRN Back Pain 03/09/25 03/09/25 nystatin 100,000 unit/mL oral 4 ml PO QID PRN thrush 03/09/25 03/09/25 suspension oxycodone 5 mg tablet 2.5 mg PO BEDTIME PRN pain 03/09/25 03/09/25 Previous Rx's ?Medication ?Instructions ?Recorded acetaminophen 500 mg tablet 1,000 mg (2 x 500 mg) PO Q4H PRN 02/25/25 (Tylenol Extra Strength) Pain, Mild 3 days #21 tabs lidocaine 5 % topical patch 1 patch topical DAILY pain #30 ea 03/09/25 Allergies Allergy/AdvReac Type Severity Reaction Status Date / Time epinephrine (EPINEPHRINE) Allergy Severe EPI MIXED Verified 03/08/25 18:50 IN A LOCAL ANES. lOW BP LIGHTHEADEDNES, bradycardia amoxicillin (AMOXICILLIN) Allergy Mild RASH Verified 03/08/25 18:50 penicillin V Allergy Unknown rash Verified 03/08/25 18:50 metoprolol AdvReac Intermediate Fatigued Uncoded 03/08/25 09:24 Review of Systems Review of Systems: Positive head injury Yes all other systems are reviewed and are negative [facility] Past Medical History Attestation statement: The following information was validated with the patient. Medical History Tremor Urinary incontinence Constipation Oral thrush Hyponatremia Chronic low back pain HTN (hypertension) Paroxysmal atrial fibrillation Cataract Family History Family History Father Myocardial infarct Mother Myocardial infarct Brother History of quadruple bypass Social History Social History Household Members: None Housing: House Do you presently have visiting nurse or other home services: No Alcohol intake: current Alcohol intake frequency: holidays/special occasions only Alcohol type: wine Patient Tobacco Use Status: Never used Tobacco e-Cigarette/Vaping Use: Never Used Advance Directives Date on File: 03/09/25 service: No Current occupational status: retired Cognitive needs: Yes (wheelchair) Hearing needs: No Vision needs: Yes (reading glasses) Physical Exam Exam: Exam: Appearance: Alert. Oriented X3. No acute distress. Eyes: Pupils equal, round and reactive to light. ENT: Pharynx normal. Neck: Normal inspection. Neck supple. No lymph nodes noted. No crepitus CVS: Normal heart rate and rhythm. Pulses normal. Normal S1 and S2 Respiratory: No respiratory distress. Breath sounds normal. No Wheezing. No rales Abdomen: Soft and nontender. No rigidity. No distention. good BS x4 Skin: Skin warm and dry. Normal skin color. Normal skin turgor. Extremities: No lower extremity edema. Neurovascular intact to all extremities. No Lacerations. No Rash Neuro: Oriented X 3. No motor deficit. No sensory deficit. Moving all extermities. No slurred speech Vital Signs: Vital Signs: Last Vital Signs Temp 98.3 F 03/10/25 09:03 Pulse 86 03/10/25 09:03 Resp 18 03/10/25 09:03 BP 142/72 H 03/10/25 09:03 Pulse Ox 99 03/10/25 09:03 O2 Del Method Room Air 03/10/25 09:03 BMI result Body Mass Index 26.8 Course Course Course Narrative: Time: 08:30 Date: 03/09/25 Provider: Rosangela Servin PA-C Patient in physician observation for case management needs at 1:13 am this morning. She is here s/p mechanical fall at home. She had imaging in ER as above and was unremarkable. SHe is in Obs for PT/CM eval. Will continue to monitor. Code is UTD. 1250: Patient's daughter Rufina requested to speak to the healthcare provider who is managing patient's case this morning. She has concerns about patient's mental declined and forgetfulness at home and she was not sure whether or not there was medication or different pain medication that could improve this her put her at less risk for falls. We had a detailed conversation about this. Patient's daughter did book a pain management appointment on the of this month but she wanted to see if this could be facilitated for sooner. Unfortunately this is not a possibility as patient does not have any acute fractures or dislocations that would warrant acute management to be seen sooner on an outpatient basis. Patient has benefitted from short-term rehab before in the past physical therapy has recommended short-term rehab this is in the process CM on board. 1545: Plans to d/c to [facility] tomorrow at 9am for STR. Discussed pain management with patient - benefit from patch. This is reassuring plan to discharge with prescription for lidoderm patches (sent already). Case signed out to evening ALISIA Davila pending disposition to [facility] tomorrow. Reevaluation(s) Reevaluation #1: At this time observation ended patient will be discharged at this time [facility] here for transport. Patient aware of plan. Medications Administered Discontinued Medications Generic Name Dose Route Start Last Admin Trade Name Freq PRN Reason Stop Dose Admin Acetaminophen 975 mg 03/09/25 00:30 03/10/25 07:52 Acetaminophen 325 Mg Tablet PO 975 mg Q4H PRN Administration Pain, Mild Apixaban 5 mg 03/08/25 23:45 03/10/25 07:52 Apixaban 5 Mg Tablet PO 5 mg BID@0900,1700 [facility] Administration Atorvastatin Calcium 10 mg 03/09/25 17:00 03/09/25 16:32 Atorvastatin Calcium 10 Mg Tablet PO 10 mg DAILY@1700 MAYA Administration Calcium Carbonate 500 mg 03/08/25 23:45 03/10/25 08:18 Calcium Oyster Shell Elemental 500 Mg Tablet PO 500 mg BID@0900,1700 MAYA Administration Cyclobenzaprine HCl 5 - 10 mg 03/09/25 00:00 03/09/25 16:43 Cyclobenzaprine Hcl 5 Mg Tablet PO Not Given TID MAYA Cyclobenzaprine HCl 5 mg 03/09/25 21:00 03/09/25 16:33 Cyclobenzaprine Hcl 5 Mg Tablet PO 5 mg TID MAYA Administration Cyclobenzaprine HCl 5 mg 03/09/25 21:00 03/10/25 07:52 Cyclobenzaprine Hcl 5 Mg Tablet PO 5 mg TID MAYA Administration Diltiazem HCl 120 mg 03/09/25 00:00 03/09/25 20:26 Diltiazem Hcl Cd 120 Mg Cap.Er.Deg PO 120 mg DAILY@1700 [facility] Administration Protocol Flecainide Acetate 100 mg 03/09/25 06:30 03/10/25 06:17 Flecainide Acetate 50 Mg Tablet PO 100 mg BID@0630,1700 [facility] Administration Sodium Chloride 500 mls @ 999 mls/hr 03/08/25 23:30 03/09/25 00:52 Ns IV 03/09/25 00:00 Infused .Q31M [facility] Infusion Sodium Chloride 1,000 mls @ 999 mls/hr 03/09/25 01:15 03/09/25 02:45 Ns IV 03/09/25 02:15 Infused .Q1H1M [facility]A Infusion Sodium Chloride 1,000 mls @ 100 mls/hr 03/09/25 02:00 03/10/25 07:35 Ns IVCONT Infused .Q10H [facility] Infusion Levothyroxine Sodium 25 mcg 03/09/25 06:30 03/10/25 06:17 Levothyroxine Sodium 25 Mcg Tablet PO 25 mcg DAILY@0630 [facility] Administration Lidocaine 1 patch 03/09/25 16:11 03/09/25 17:09 Lidocaine 4 % Patch Adh..Patch TRANSDERMA 03/09/25 16:12 1 patch ONCE ONE Administration Protocol Lisinopril 10 mg 03/09/25 00:00 03/09/25 18:40 Lisinopril 10 Mg Tablet PO 10 mg DAILY@1700 [facility] Administration Protocol Nystatin 0 unit 03/09/25 00:00 03/10/25 07:53 Nystatin Oral Susp 500,000 Unit/5 Ml Oral.Susp PO Not Given QID [facility] Protocol Vitamin D 50 mcg 03/10/25 09:00 03/10/25 07:52 Cholecalciferol (Vitamin D3) 25 Mcg Tablet PO 50 mcg Sa@0900 [facility] Administration Medical Decision Making Medical Decision Making [facility] Narrative: CT scan of the head by my interpretation was grossly negative. I reviewed radiology's reading which include the CT head and CT C-spine were both negative. I will draw labs as patient felt weak. Although he she claims the fall was more mechanical in nature. In stable condition. if labs are normal will get case management and Physical therapy to evaluate patient. We attempted to ambulate patient after 2 step patient got very weak. We did orthostatic on patient patient's heart rate went up. Additional fluid was given. Will have case management and Physical therapy evaluate patient. Patient's hemoglobin is 12.5. Electrolytes unremarkable. Chest x-ray showed no focal infiltrate. CT scan of the C-spine was again negative. Differential Diagnosis Differential Diagnoses: The differential diagnosis associated with the presentation includes Head injury Admission/Observation Consideration of admission/observation: Escalation of care including admission/observation considered Consult Healthcare Provider case management and physical therapy Lab Data [facility] Lab Attestation statement: I reviewed the patient's lab results. 03/08/25 23:56 03/08/25 23:56 Labs: Lab Results 03/08/25 03/09/25 Range/Units 23:56 11:22 WBC 7.9 (4.8-10.8) X10*3/uL RBC 4.12 L (4.20-5.50) X10*6/uL Hgb 12.5 (12.0-16.0) g/dl Hct 36.7 L (37.0-47.0) % MCV 89.1 (80.0-98.0) fL MCH 30.3 (27.0-33.0) pg MCHC 34.1 (31.0-35.0) g/dl RDW 13.6 (11.0-16.0) % Plt Count 308 (160-400) X10*3/uL MPV 7.9 L (9.4-12.3) fL Immature Gran % (Auto) 0.4 (0.0-0.4) % Neut % (Auto) 71.4 (45-73) % Lymph % (Auto) 17.8 L (20-40) % Tucker % (Auto) 9.0 (2-11) % Eos % (Auto) 1.0 (0-4) % Baso % (Auto) 0.4 (0-2) % Lymph # (Auto) 1.4 (1.2-4.9) X10*3/uL Tucker # (Auto) 0.7 (0.1-1.2) X10*3/uL Eos # (Auto) 0.1 (0.0-0.4) X10*3/uL Baso # (Auto) 0.0 (0.0-0.2) X10*3/uL Abs Immat Gran (auto) 0.03 (0.00-0.03) X10*3/uL Absolute Neuts (auto) 5.6 (2.0-8.3) x10*3/uL Absolute Nucleated RBC 0.000 (0.0-0.012) X10*3/uL Nucleated RBC % (auto) 0.0 (0.0-0.2) /100WBC Sodium 135 (135-145) mmol/L Potassium 4.4 (3.3-5.1) mmol/L Chloride 101 (96-108) mmol/L Carbon Dioxide 22 (22-29) mmol/L Anion Gap 16 (12-20) BUN 15 (9-16) mg/dL Creatinine 0.61 (0.5-1.4) mg/dL Estim Creat Clear Calc 72.3 Estimated GFR > 60 Random Glucose 112 (60-115) mg/dL Calcium 9.7 (8.4-10.2) mg/dL Total Bilirubin 0.4 (0.0-1.0) mg/dL Direct Bilirubin 0.2 (0.0-0.5) mg/dL AST 49 H (5-31) U/L ALT 74 H (0-31) U/L Alkaline Phosphatase 108 (39-117) U/L Total Protein 7.3 (6.5-8.0) g/dL Albumin 4.4 (3.5-5.0) g/dL COVID-19 (JESSICA) Negative (Negative) COVID-19 Clin Com See Note Independent Interpretation I performed an independent interpretation of an: EKG ( sinus heart rate is 90 ME QRS QTC within normal limits is no acute ST segment elevation) and CT Scan ( CT head negative) Radiology Impression Discussion of test interpretation with radiology: I have reviewed the radiologist's reading. Radiologist Impression: CT head and CT cervical spine negative Independent Historian Clinical information obtained from an independent historian. History obtained from or confirmed by: Other ( family) External Record Review External record reviewed: Office record patient had multiple falls. History of atrial fibrillation on Eliquis Chronic Conditions atrial fibrillation Social Determinants Patient?s care significantly limited by Social Determinants of Health including: Problems related to primary support group Discharge Plan Discharge Clinical Impression: Fall, Atrial fibrillation, Acute lumbar myofascial strain Patient Disposition: Xfer Inpatient Rehab Fac Transfer Details: TO: DR VILLA PATEL ACCEPTING Additional Instructions: Take your medications as prescribed. If you were prescribed antibiotics today, it is important that you take your medication to their entirety, do not skip any doses, do not finish them early. Follow-up with your primary care provider this week. Return to the emergency department with new or worsening symptoms. Such as fevers, chills, chest pain, shortness of breath, nausea, vomiting, dizziness, headache, vision changes, lethargy In case of emergency call 911 Prescriptions: New lidocaine 5 % adhesive patch,medicated 1 patch topical DAILY Qty: 30 0RF Rx Instructions: leave on most painful area for up to 12 hrs No Action acetaminophen [Tylenol Extra Strength] 500 mg tablet 1,000 mg PO Q4H PRN (Reason: Pain, Mild) 3 Days Qty: 21 0RF simvastatin 20 mg tablet 20 mg PO DAILY@1700 lisinopril 10 mg tablet 10 mg PO DAILY@1700 flecainide 100 mg tablet 100 mg PO BID@0900,1700 diltiazem HCl 120 mg capsule,extended release 24hr 120 mg PO DAILY@1700 levothyroxine 25 mcg capsule 25 mcg PO DAILY@0600 Eliquis 5 mg tablet 5 mg PO BID@0900,1700 nystatin 100,000 unit/mL suspension 4 ml PO QID PRN (Reason: thrush) Rx Instructions: 4ml swish and swallow orally 4 times a day cyclobenzaprine 5 mg tablet 10 mg PO TID PRN (Reason: Back Pain) cholecalciferol (vitamin D3) [Vitamin D3] 125 mcg (5,000 unit) Tablet 125 mcg PO SA oxycodone 5 mg tablet 2.5 mg PO BEDTIME PRN (Reason: pain) Rx Instructions: Partial Fill upon patient request. flaxseed oil 1,000 mg capsule 1,000 mg PO BID@0900,1700 Rx Instructions: administer with meals multivitamin Tablet 1 tab PO DAILY@0900 magnesium glycinate 100 mg tablet 100 mg PO DAILY@0900 calcium carbonate 500 mg calcium (1,250 mg) tablet 500 mg PO BID@0900,1700 alprazolam [Xanax] 0.25 mg tablet 0.125 mg PO BEDTIME PRN (Reason: Anxiety) Referrals: [facility] [Outside] Referral Note: [phone] Inna Eli PA [Primary Care Provider, Internal Medicine] Interventions: ED Discharge Assessment Last Done: 03/10/25 09:03 Discharge Date/Time: 03/10/25 09:08 Print Language: Argentine
--- NOTE | 2025-03-08 23:52 | PC.NURSE ---
med rec done with patient at bedside, confirmed dosage and frequency of meds.
[2025-03-09] VITALS (10 sets, daily range): BP systolic 142–166; BP diastolic 68–86; PULSE 75–121; RESP 16–18; TEMP 36.6–37.4; O2SAT 98–100
[2025-03-09] LABS: MANUAL DIFF FLAG NO
[2025-03-09 00:01] LABS: Hematocrit 36.7 % (37.0-47.0); Hemoglobin 12.5 g/dl (12.0-16.0); Imm Gran Abs Auto 0.03 X10*3/uL (0.00-0.03); Imm Gran Pct Auto 0.4 % (0.0-0.4); Lymphocytes Absolute Auto 1.4 X10*3/uL (1.2-4.9); Mean Corpuscular HGB Conc 34.1 g/dl (31.0-35.0); Mean Corpuscular Hemoglobin 30.3 pg (27.0-33.0); Mean Corpuscular Volume 89.1 fL (80.0-98.0); NRBC Abs Auto 0.000 X10*3/uL (0.0-0.012); NRBC Pct Auto 0.0 /100WBC (0.0-0.2); Platelet Count 308 X10*3/uL (160-400); Red Blood Count 4.12 X10*6/uL (4.20-5.50); White Blood Count 7.9 X10*3/uL (4.8-10.8)
--- NOTE | 2025-03-09 00:01 | PC.NURSE ---
20 g IV placed in the right hand
--- NOTE | 2025-03-09 00:18 | PC.NURSE ---
aware of orthos. ivf infusing.
[2025-03-09 00:23] LABS: Alanine Aminotransferase 74 U/L (0-31); Albumin Level 4.4 g/dL (3.5-5.0); Alkaline Phosphatase 108 U/L (39-117); Anion Gap 16 (12-20); Aspartate Amino Transferase 49 U/L (5-31); Blood Urea Nitrogen 15 mg/dL (9-16); Calcium 9.7 mg/dL (8.4-10.2); Carbon Dioxide 22 mmol/L (22-29); Chloride 101 mmol/L (96-108); Creatinine Clr Calc Pharmacy 72.3; Estimated Glomerular Filt Rate > 60; Potassium 4.4 mmol/L (3.3-5.1); Sodium 135 mmol/L (135-145); Total Protein 7.3 g/dL (6.5-8.0)
[2025-03-09] MEDS: Nystatin Oral Susp 500,000 UNIT/5 ML ORAL.SUSP PO ×5 (00:54→20:27)
[2025-03-09] MEDS: Calcium Oyster Shell Elemental 500 MG TABLET PO ×3 (00:55→18:40)
[2025-03-09] MEDS: dilTIAZem HCL CD 120 MG CAP.ER.DEG PO ×2 (01:07→20:26)
--- NOTE | 2025-03-09 01:16 | PC.NURSE ---
Pt placed on Purewick and given warm blanket. PM meds given.
--- NOTE | 2025-03-09 01:23 | PC.NURSE ---
report given to overflow RN. pt agreeable to plan. Daughter Rufina updated .
--- NOTE | 2025-03-09 04:58 | PC.NURSE ---
Patient arrived to ED overflow from Main ED ~02:00 s/p fall x2 with +head strike at home. The patient denies vision changes/blurred vision, headache, numbness/tingling, chest pain, sob, and n/v. MAEE. Pt only complaint is some tenderness to the right side of her head that she reports was site of head strike x2. Pt recently medicated prior to arrival per MAR review; ice packs offered and pt agreeable, provided. Imaging on chart review negative, though orthostatics/HR elevation positive in main ED. Pt arrived with IV fluid bolus running; maintenance fluids NS at 100ml/hr started once bolus completed. Pt tolerating fluids without issue. Breathing remains even and unlabored without distress. Baseline urinary incontinence, PW placed. Pt denies dysuria or other acute issue. Patient oriented to room, call parry, bed mechanics, and plan of care (awaiting PT/CM eval/disposition). Bed alarm on and safety measures in place.
--- NOTE | 2025-03-09 11:58 | MHC.CM.ED ---
Received case management consult overnight. Patient was at [facility] for STR from 02/15-02/23. Patient was d/c'd home with [facility] with longterm, physical therapy, occupational therapy and home health aide. Patient fell yesterday and came to the ER. Work up essentially negative. Physical therapy eval completed. Short term rehab is recommended. Met with patient and daughter, Rufina, in regards to discharge planning. [facility] is 1st choice. Unfortunately [facility] does not have a bed. Patient and Rufina agreeable to referral being broadcasted locally with preference of a private room. Multiple bed offers available. Some private rooms. Some semi-private. Bed offers discussed with patient and Rufina. [facility] is 1st choice. [facility] aware and asked to obtain ins auth. [facility] requesting copy of HCP. Patient has a HCP at home. Rufina will obtain a copy. Continue to monitor for d/c needs.
[2025-03-09 12:12] LABS: COVID-19 Test Negative (Negative); IDNOW Serial# 58CA691E
--- NOTE | 2025-03-09 15:14 | MHC.CM.ED ---
Insurance auth has been obtained by [employer]. [place] [facility] booked for 03/10 at 9am. Med [facility] with chart. Patient, daughter Gloria Almaraz RN and Rosangela ALISIA aware. [facility] also made aware. Continue to monitor for d/c needs.
[2025-03-09] MEDS: Lidocaine 4 % Patch ADH..PATCH 1 PATCH TRANSDERMA (17:09)
--- NOTE | 2025-03-09 18:25 | PHA.MEDREC ---
Addendum entered by Pipe Zavala, PharmD 03/09/25 19:36: MED REC CHECKED BY [facility] Original Note: Pharmacy Consult ? Medication Reconciliation Pharmacy reviewed med rec done by nursing. Spoke with pt and pt family at bedside and they verified pt medications. Pt taking Vitamin D3 5000un once a week on SA (pt LT Sa 03/03; nurse confirmed 2000un once a week, update on med rec, pt taking Cyclobenzaprine 10mg TID prn Back Pain, she takes Magnesium Glycinate QD@0900; nurse confirmed BID, updated that, pt taking Nystatin oral suspension as needed for thrush; pt PCP cleared that yesterday and pt taking the Oxycodone 5mg tab 1/2 tab at bedtime as needed for pain; script originally written Q8H but family confirmed pt only taking it at bedtime now.
[2025-03-10 05:07] VITALS: BP 160/92; PULSE 62; RESP 18; TEMP 36.9; O2SAT 94
--- NOTE | 2025-03-10 05:10 | PC.NURSE ---
Assumed care of patient at 1900 in ED OVF. Patient is alert and oriented x 3, forgetful at times. Patient thought she was in [place] overnight. Room Air. Patient ambulating with walker, steady gait. She reports feeling light headed at beginning of shift. Resolved after sitting down for a few minutes. Voiding in the bathroom and bedside commode. Reporting back pain. Medicated per JUN. Bed in lowest position, locked and alarmed. Call parry within reach. Plan: D/C at 0900.
[2025-03-10] MEDS: Calcium Oyster Shell Elemental 500 MG TABLET PO (08:18)
[2025-03-10 09:03] VITALS: BP 142/72; PULSE 86; RESP 18; TEMP 36.8; O2SAT 99
--- NOTE | 2025-03-10 09:08 | PC.NURSE ---
facility contacted. report given to EMS. IV removed and belongings with pt.
== END 2025-03-10 09:08 ==
PROVIDERS: Physician Assistant Medical; Emergency Provider Emergency Medicine Emergency Medical Services; PCP Physician Assistant Medical
DX: S39.012A Strain of muscle, fascia and tendon of lower back, initial encounter (principal); R26.81 Unsteadiness on feet; I48.91 Unspecified atrial fibrillation; I25.10 Atherosclerotic heart disease of native coronary artery without angina pectoris; R07.89 Other chest pain; M54.2 Cervicalgia; R51.9 Headache, unspecified; I49.8 Other specified cardiac arrhythmias; I44.0 Atrioventricular block, first degree; W01.0XXA Fall on same level from slipping, tripping and stumbling without subsequent striking against object, initial encounter; Y93.9 Activity, unspecified; Y92.9 Unspecified place or not applicable; Y99.8 Other external cause status; Z11.52 Encounter for screening for COVID-19; Z79.01 Long term (current) use of anticoagulants; Z79.899 Other long term (current) drug therapy; Z91.81 History of falling
CPT/HCPCS: 36415; 70450; 71045; 72125; 80048; 80076; 85025; 87635; 93005; 96360; 96361; 97162; 99282; 99285

== ENCOUNTER → 2025-03-08 23:30 | Outpatient (BNV) | payer MEDICARE, SELFPAY | PROVIDERS: Emergency Provider Emergency Medicine Emergency Medical Services; Visit Provider Internal Medicine Cardiovascular Disease | DX: I49.9 Cardiac arrhythmia, unspecified (principal); I44.0 Atrioventricular block, first degree | CPT/HCPCS: 93010 ==

== ENCOUNTER 2025-03-20 07:59 | Outpatient (AMB) | payer MEDICARE, SELFPAY ==
--- NOTE | 2025-03-20 08:00 | MHC.OFFVIS ---
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 lOW BP LIGHTHEADEDNES, bradycardia amoxicillin (AMOXICILLIN) Allergy (Mild, Verified 03/20/25 08:08) RASH metoprolol Allergy (Unknown, Verified 03/20/25 08:08) Fatigued penicillin V Allergy (Unknown, Verified 03/20/25 08:08) rash HPI Comments Details: The patient is an 79 year old individual presenting for evaluation and management of severe chronic back pain and frequent falls due to balance concerns. The patient was recently resided for a week at [facility] for severe back pain and spasms after evaluation in ER on 02/14/25 status post fall. The patient has a history of multiple falls. On February 03, the patient fell face forward but reports she sustained no injuries. More recently, the patient experienced two backward falls on the same day, hitting the back of the head. One fall occurred while bending forward to get something from the refrigerator, and the other from slipping. The patient now uses a walker, which is new, and reports balance issues. Denies prior spine surgery or injections. The patient has a history of osteoporosis, lumbar fractures and more recently osteopenia confirmed by a recent bone density scan and had previously taken medication for it years ago but stopped. The patient reports developing a bad cold with a deep cough on January 24, and the severe back pain started about 10-11 days later. She was diagnosed with Coronavirus OC43 at that time. Prior to this recent decline, the patient was an active walker, capable of walking two miles a day. The patient lives alone and will be resuming [facility] services. The patient has completed physical and occupational therapy recently with no relief of back pain. Medications include Flexeril, which the patient is trying to taper, Tylenol, Ibuprofen and oxycodone, which has not been taken in a week. She reports oxycodone has been effective. She also tried menthol, heat therapy, diclofenac gel and lumbar support brace with continued symptoms. The patient reports occasional constipation managed with Miralax, which is not associated with an increase in pain. Patient has history of non-obstructive CAD and paroxismal Afib and takes Eliquis. Patient denies smoking or recreational drug use. She consumes wine rarely and drinks 1-2 cups of decaffeinated coffee a day. - Onset and Timing: Pain is constant, worse in the afternoon into the night, reaching a severity of 10/10. - Quality and Character: The pain is described as stabbing, sharp, pinching, cramping, pulling, tugging, sore, aching, and heavy. - Location and Radiation: Pain is localized to the back, with no radiation to the legs. Reports heaviness and weakness in legs with walking. - Severity: Pain is rated as 4/10 in the morning, increases to 10/10 by the evening. - Exacerbating Factors: Bending forward causes a loss of balance and increases pain. - Relieving Factors: Leaning backward is reported to be less painful than bending forward. - Interfering Factors: Pain affects daily activities and walking capacity, and makes the patient feel tired. - Affect: The patient reports feeling tired due to the pain. - Analgesia: Current pain level is 4/10 in the mornings and 10/10 in the evenings. - The patient is taking Flexeril one tablet three times a day and is attempting to taper the dose. - The patient has not taken oxycodone for one week. - Adverse Effects: The patient reports balance issues, which may be related to medications such as Flexeril. - Activities of Daily Living: Pain interferes with daily activities and walking capacity, necessitating the use of a walker. - The patient's functional goal is to return to walking two miles as the patient was able to do prior to the current episode. - Aberrant Drug-Related Behaviors: None noted; the patient is actively trying to decrease the dose of muscle relaxants. Oswestry Low Back Pain Disability Score=37 [facility] Medical History Tremor Urinary incontinence Constipation Oral thrush Hyponatremia Chronic low back pain HTN (hypertension) Paroxysmal atrial fibrillation Cataract Family History Father Myocardial infarct Mother Myocardial infarct Brother History of quadruple bypass Social History Household Members: None Housing: House Do you presently have visiting nurse or other home services: No Alcohol intake: current Alcohol intake frequency: holidays/special occasions only Alcohol type: wine Patient Tobacco Use Status: Never used Tobacco e-Cigarette/Vaping Use: Never Used Advance Directives Date on File: 03/09/25 service: No Current occupational status: retired Cognitive needs: Yes (wheelchair) Hearing needs: No Vision needs: Yes (reading glasses) Review of Systems Const Details: - Constitutional: Reports fatigue. - Respiratory: Reports a recent history of a bad cold with a deep cough approximately one month ago. - Gastrointestinal: Reports occasional constipation. - Musculoskeletal: Reports constant, severe back pain with spasms. - Denies radiation of pain into the legs, but reports heaviness and weakness, L>R in both legs with ambulation. - Neurological: Reports balance issues and multiple recent falls. Denies bladder or bowel dysfunction or saddle anesthesia. All systems reviewed & are unremarkable except as noted in HPI and below Physical Exam Vital Signs: Last Vital Signs Pulse 77 03/20/25 08:09 BP 127/66 03/20/25 08:09 Pulse Ox 98 03/20/25 08:09 Oxygen Delivery Method Room Air 03/20/25 08:09 BMI result Body Mass Index 29.1 General: Appears afebrile. Alert and oriented. Mood and affect appropriate. Follows and participates in conversation appropriately. Respiratory effort is unlabored. No cough. Able to transition from sit to stand unassisted. Ambulates with antalgic, slow gait with use of walker. Kyphotic forward posture. Reports decreased walking capacity and balance issues due to back pain. General: Yes no CVA tenderness Back/Spine/Pelvis Other: Limited lumbar ROM due to pain. Mild to moderate midline TTP in the upper and lower lumbar regions, no midline TTP in cervical ro thoracic regions. Palpation of the back elicits tenderness over the left paraspinal muscles, with less tenderness on the right. Lumbar flexion and limited bending reproduces moderate to severe pain, lumbar extension 5-10 degrees reproduces moderate pain. Demonstrates 5/5 right and 4/5 left strength of quadriceps bilaterally as well as flexion/dorsiflexion of bilateral feet against resistance. 2+ pedal pulses bilaterally. Straight leg rise with dorsiflexion positive bilaterally. Diminished patellar and achilles reflexes bilaterally. Facet loading test positive bilaterally. No groin pain with I/E hip rotations. Valsalva maneuver negative. Back: no CVA tenderness Cervical Spine: cervical ROM normal, cervical muscular tenderness, pain with cervical ROM, No Cervical spine scars present and No Cervical spine tenderness Thoracic/Lumbar Spine: thoracic and lumbar spine normal to inspection, No Thoracic/lumbar spine scar(s), kyphosis, Lasegue's sign positive bilateral and diffuse, pain with thoraco-lumbar ROM, paraspinal muscle tenderness on the left greater than right, thoraco-lumbar ROM limited, Thoracic/lumbar scoliosis, No thoracic spinal tenderness and lumbar spinal tenderness Pelvis: buttock tenderness bilaterally Sacroiliac joints: bilaterally tender to palpation Extrem General: Yes capillary refill normal, Yes no clubbing, cyanosis or edema and Yes no calf tenderness Results Reviewed Results Reviewed: XR lumbar spine 2-3V 02/14/25 CLINICAL HISTORY: pain 4 views lumbar spine Comparison: None provided Findings: Grade 2 anterolisthesis at L4-L5. Chronic appearing compression deformities noted at L1 height loss, L2 along the superior endplate with mild height loss, L3 and L4 with mild height loss. No significant retropulsion. No acute appearing fracture lines. Foraminal stenoses at L5-S1. Osteopenia. Multilevel spondylosis with diffuse osteophytosis, facet arthropathy and degenerative disc disease. IMPRESSION: Chronic appearing changes without obvious acute fracture. If clinical concern persists consider follow-up MRI. XR DEXA axial skeleton 03/07/25 IMPRESSION: Based on bone mineral density, and according to World Health Organization (WHO) criteria, the diagnosis is consistent with osteopenia based on lowest T score of -2.3 in the left femoral neck. Bone mineral density appears improved in the spine compared to prior exam. CT cervical spine wo IV con 03/08/25 Reason for Exam: fall/+HS on eliquis CLINICAL HISTORY: fall +HS on eliquis CT cervical spine without contrast Comparison: CT/VA/SR - CT CERVICAL SPINE WITHOUT IV CONTRAST - 03/08/2025 09:44 AM EST Findings: There is reversal of the normal cervical lordosis which may be positional. There is grade 1 anterolisthesis of C3 on C4 and C4 on C5. No acute fractures or dislocations. Multilevel facet arthropathy. Endplate sclerosis and uncovertebral hypertrophy worst C6-C7. No high-grade spinal canal narrowing. Soft tissues of the neck are normal. No consolidation or effusion at the lung apices. IMPRESSION: No acute fracture of the cervical spine. No change compared to prior exam earlier this same date. XR LUMBOSACRAL SPINE 03/20/25 CLINICAL INFORMATION: M43.16 - Spondylolisthesis, lumbar region COMPARISON: 02/12/2025 TECHNIQUE: 6 views of the lumbar spine, inclusive of flexion and extension views, were obtained. FINDINGS: Moderate vascular calcification is present in the aorta. There are 5 nonrib-bearing lumbar segments. There is 18 degrees levoscoliosis, previously 8 degrees. Numerous compression fractures are present. L1: Severe superior endplate compression fracture has increased since the prior resulting in focal hyperkyphosis. L2: Mild concavity of the anterior superior endplate is stable. L3: Mild superior endplate wedging is stable. L4: Mild to moderate superior endplate concavity is stable. There is grade 1, borderline grade 2 anterolisthesis at L4-5. Oblique view demonstrates questionable pars interarticularis defect on the left. Image detail is obscured by body habitus. With flexion and extension, there is no sign of instability. IMPRESSION: Severe superior endplate fracture of L1 has increased since the prior study one month ago. Numerous other compression fractures are stable. There is increasing levoscoliosis and kyphosis of the lumbar spine L4-5 demonstrates grade 1, borderline grade 2 anterolisthesis. A pars interarticularis defect cannot be ruled in or out on the left. No instability was demonstrated on flexion and extension views. Assessment & Plan Assessment & Plan (1) Bilateral low back pain without sciatica: Code(s): M54.50 - Low back pain, unspecified Category: Medical Qualifiers: Chronicity: acute Qualified Code(s): M54.50 - Low back pain, unspecified (2) Chronic low back pain: Code(s): M54.50 - Low back pain, unspecified; G89.29 - Other chronic pain Category: Medical (3) Spondylolisthesis, lumbar region: Code(s): M43.16 - Spondylolisthesis, lumbar region Category: Medical (4) Spondylolisthesis at L4-L5 level: Code(s): M43.16 - Spondylolisthesis, lumbar region Category: Medical (5) Lumbosacral spondylosis: Code(s): M47.817 - Spondylosis without myelopathy or radiculopathy, lumbosacral region Category: Medical (6) Frequent falls: Code(s): R29.6 - Repeated falls Category: Medical (7) Lumbar compression fracture: Code(s): S32.000A - Wedge compression fracture of unspecified lumbar vertebra, initial encounter for closed fracture Category: Medical Plan The primary concern is the patient's grade 2 anterolisthesis at L4-L5 and L1 compression fracture, which is likely causing mechanical instability, severe pain, and balance issues leading to falls. To further assess this, lumbar spine flexion and extension x-rays were taken after today's visit and showed no instability on flexion or extension views. It also revealed severe superior endplate fracture of L1 has increased since the prior study one month ago and numerous other compression fractures are stable. An urgent MRI of the lumbar spine at [facility] will also be ordered to further evaluate patient's symptoms and rule out retropulsion with L1 compression fracture for potential kyphoplasty. We also discussed Neurosurgery evaluation and interventional procedures as future options for axial low back pain, including diagnostic nerve blocks followed by either radiofrequency ablation or peripheral nerve stimulation for longer-term pain relief. In terms of medication, the patient was encouraged to continue tapering off Flexeril, as it may be contributing to balance problems and dizziness. Management of opioid medications will be deferred to the patient's primary care provider. All questions and concerns have been answered and patient agreed with the treatment plan. Follow up for MRI results and sooner as needed. Patient was informed and verbally consented to the use of an ambient scribe for clinic note documentation during this visit. Orders: Orders MR lumbar spine wo con Today G89.29 - Other chronic pain, M43.16 - Spondylolisthesis, lumbar region, M47.817 - Spondylosis without myelopathy or radiculopathy, lumbosacral region, M54.50 - Low back pain, unspecified, R29.6 - Repeated falls, S32.000A - Wedge compression fracture of unspecified lumbar vertebra, initial encounter for closed fracture XR lumbar spine 6V w bending Today G89.29 - Other chronic pain, M43.16 - Spondylolisthesis, lumbar region, M54.50 - Low back pain, unspecified Coding Level of Care Code New Pt Level 4 (37623) Diagnoses Acute bilateral low back pain without sciatica M54.50 Chronicity: acute Chronic low back pain M54.50; G89.29 Spondylolisthesis, lumbar region M43.16 Spondylolisthesis at L4-L5 level M43.16 Lumbosacral spondylosis M47.817 Frequent falls R29.6 Lumbar compression fracture S32.000A
[2025-03-20 08:09] VITALS: BP 127/66; PULSE 77; O2SAT 98; BMI 29.1
--- OUTSIDE RECORDS SUMMARY | 2025-03-20 08:10 | XMS_ITS | Clinical Summary ---
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 It is not the complete legal health record.[facility]
== END 2025-03-20 08:45 | disposition home or self-care (01) ==
LOC: HO.PMC 07:59
PROVIDERS: PCP Physician Assistant Medical; Referring Provider Physician Assistant Medical; Visit Provider Nurse Practitioner Family
DX: M54.50 Low back pain, unspecified (principal); G89.29 Other chronic pain; M43.16 Spondylolisthesis, lumbar region; M47.817 Spondylosis without myelopathy or radiculopathy, lumbosacral region; R29.6 Repeated falls; S32.000A Wedge compression fracture of unspecified lumbar vertebra, initial encounter for closed fracture
CPT/HCPCS: 99204

== ENCOUNTER 2025-03-20 07:59 | Outpatient (REF) | payer MEDICARE, SELFPAY ==
--- NOTE | ~2025-03-20 | XR_ITS ---
EXAMINATION: XR LUMBOSACRAL SPINE CLINICAL INFORMATION: M43.16 - Spondylolisthesis, lumbar region COMPARISON: 02/12/2025 TECHNIQUE: 6 views of the lumbar spine, inclusive of flexion and extension views, were obtained. FINDINGS: Moderate vascular calcification is present in the aorta. There are 5 nonrib-bearing lumbar segments. There is 18 degrees levoscoliosis, previously 8 degrees. Numerous compression fractures are present. L1: Severe superior endplate compression fracture has increased since the prior resulting in focal hyperkyphosis. L2: Mild concavity of the anterior superior endplate is stable. L3: Mild superior endplate wedging is stable. L4: Mild to moderate superior endplate concavity is stable. There is grade 1, borderline grade 2 anterolisthesis at L4-5. Oblique view demonstrates questionable pars interarticularis defect on the left. Image detail is obscured by body habitus. With flexion and extension, there is no sign of instability. XR/XR lumbar spine 6V w bending IMPRESSION: Severe superior endplate fracture of L1 has increased since the prior study one month ago. Numerous other compression fractures are stable. There is increasing levoscoliosis and kyphosis of the lumbar spine L4-5 demonstrates grade 1, borderline grade 2 anterolisthesis. A pars interarticularis defect cannot be ruled in or out on the left. No instability was demonstrated on flexion and extension views. Electronically signed by: Jaime Engel MD 03/20/2025 10:00 AM NIA
== END 2025-03-20 08:00 | disposition home or self-care (01) ==
LOC: HO.XRAY 07:59
PROVIDERS: PCP Physician Assistant Medical; Referring Provider Physician Assistant Medical; Visit Provider Nurse Practitioner Family
DX: S32.000A Wedge compression fracture of unspecified lumbar vertebra, initial encounter for closed fracture (principal); M47.817 Spondylosis without myelopathy or radiculopathy, lumbosacral region; M43.16 Spondylolisthesis, lumbar region; G89.29 Other chronic pain; R29.6 Repeated falls; W01.0XXA Fall on same level from slipping, tripping and stumbling without subsequent striking against object, initial encounter
CPT/HCPCS: 72114; 99202

== ENCOUNTER → 2025-03-20 09:02 | Outpatient (BNV) | payer MEDICARE, SELFPAY | PROVIDERS: PCP Physician Assistant Medical; Referring Provider Physician Assistant Medical; Visit Provider Radiology Diagnostic Radiology | DX: M43.16 Spondylolisthesis, lumbar region (principal) | CPT/HCPCS: 72114 ==

== ENCOUNTER 2025-03-26 11:46 | Outpatient (AMB) | payer MEDICARE, SELFPAY ==
[2025-03-26 11:47] VITALS: BP 128/82; PULSE 86; TEMP 36.2; O2SAT 99; BMI 29.1
--- NOTE | 2025-03-26 11:47 | A.OFFPC_ITS ---
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 lOW BP LIGHTHEADEDNES, bradycardia amoxicillin (AMOXICILLIN) Allergy (Mild, Verified 04/06/25 09:42) RASH metoprolol Allergy (Unknown, Verified 04/06/25 09:42) Fatigued penicillin V Allergy (Unknown, Verified 04/06/25 09:42) rash Medication List - Last Reconciled 04/17/25 by ALISIA Koroma acetaminophen (Tylenol Extra Strength) 1,000 mg (2 x 500 mg) PO Q4H PRN 3 days alprazolam (Xanax) 0.125 mg PO BEDTIME PRN apixaban (Eliquis) 5 mg PO BID@0900,1700 calcium carbonate 500 mg PO BID@0900,1700 cholecalciferol (vitamin D3) (Vitamin D3) 125 mcg PO SA cyclobenzaprine 10 mg PO TID PRN diltiazem HCl CD 120 mg PO DAILY flaxseed oil 1,000 mg PO BID@0900,1700 flecainide 100 mg PO BID@0900,1700 levothyroxine 25 mcg PO DAILY 90 days lidocaine 5% 1 patch topical DAILY lisinopril 10 mg PO DAILY@1700 magnesium glycinate 100 mg PO DAILY@0900 multivitamin 1 tab PO DAILY@0900 simvastatin 20 mg PO DAILY Tobacco use date assessed: 03/26/25 Fall risk assessment: 1 Fall in past year Last assessed Fall Risk: 03/26/25 Dental Screening Dental Screen Date: 03/26/25 Did you have a dental visit in the last 12 months?: Yes Did you have a dental problem in the last 6 months where you did not have access to dental care?: No HPI HPI Comments History of Present Illness Details History of Present Illness The patient is an 79 year old female with CAD, HTN, Afib on Eliquis, Osteoporosis, Anxiety, back pain hypothyroidism and low vitamin D presenting for follow-up on multiple medical issues including back pain and recent falls. The patient reports chronic back pain, which is primarily on one side and has improved since it was previously at a 10+ pain level. Current management includes Tylenol two tablets four times a day, heat application, a lidocaine rub, and Flexeril only at bedtime, as it was causing confusion and dizziness. The patient is no longer taking Oxycodone. The patient was recently seen by a apprentice painter neckties who ordered x-rays which revealed a slippage at L1, and an MRI is pending. Proposed treatment plans from the specialist include surgery or cement shots, pending the MRI results. A couple of weeks ago, the patient experienced two falls in one day, both resulting in head trauma. The falls were preceded by a period of confusion, attributed to taking Flexeril multiple times a day and Oxycodone. Following the falls, the patient was hospitalized and then transferred to [facility] for rehabilitation, from which discharge occurred last Wednesday. Confusion persisted after discharge but has been improving over the last 24-36 hours as medications have been reduced. The patient also reports episodes of extreme shaking and weakness, which occur about once a week and are typically followed by a bowel movement, after which the patient feels better. There is a history of a hand tremor, thought to be essential tremor, which has been present for a while. Urinary incontinence has improved with better mobility and is now mostly an issue at night. A history of oral thrush seems to be resolved, although the patient did not complete the full course of nystatin due to a pharmacy error where the patient received topical cream instead of oral suspension. Medical History: - Chronic back pain - Lumbar spondylolisthesis at L1 - Recent concussion secondary to falls - History of essential tremor - History of oral candidiasis, resolved - Urinary incontinence, improving - Recent hospitalization and inpatient r ehabilitation Medications: - Flexeril at bedtime for back pain - Tylenol, 2 tablets four times a day fo r pain - Lidocaine rub for back pain - Oxycodone, recently discontinued Family History: - Mother had essential tremor. Health Maintenance A urinalysis will be ordered to rule out a urinary tract infection. The appointment scheduled for April 11 will be canceled, and the patient will follow up in 4-6 weeks. Social History - The patient recently completed a stay at an inpatient rehabilitation facility. - Receives home services including PT, O T, visiting nurse, and shower assistance. - Receives Meals on Wheels. - Functional Status: Requires a walker f or ambulation due to balance issues. Results - Imaging: Spine x-ray showed a slippage at L1. - Labs: Urinalysis performed at [facility] w as negative for a UTI. Patient was informed and verbally consented to the use of an ambient scribe for clinic note documentation during this visit. [facility] Medical History (Updated 04/17/25 @ 11:06 by ALISIA Koroma) Anemia Cataract Chronic low back pain Constipation HTN (hypertension) Hyponatremia Oral thrush Paroxysmal atrial fibrillation Tremor Urinary incontinence Family History Father Myocardial infarct Mother Myocardial infarct Brother History of quadruple bypass Social History Household Members: None Housing: House Do you presently have visiting nurse or other home services: No Alcohol intake: current Alcohol intake frequency: holidays/special occasions only Alcohol type: wine Patient Tobacco Use Status: Never used Tobacco e-Cigarette/Vaping Use: Never Used Advance Directives Date on File: 03/09/25 service: No Current occupational status: retired Cognitive needs: Yes (WALKER) Hearing needs: No Vision needs: Yes (reading glasses) Questionnaire PHQ-9 Over the last 2 weeks, how often have you been bothered by any of the following problems? 1. Little interest or pleasure in doing things: not at all 2. Feeling down, depressed, or hopeless: several days 3. Trouble falling or staying asleep, or sleeping too much: not at all 4. Feeling tired or having little energy: several days 5. Poor appetite or overeating: not at all 6. Feeling bad about yourself - or that you are a failure or have let yourself or your family down: not at all 7. Trouble concentrating on things, such as reading the newspaper or watching television: not at all 8. Moving or speaking so slowly that other people could have noticed. Or the opposite - being so fidgety or restless that you have been moving around a lot more than usual: not at all 9. Thoughts that you would be better off or of hurting yourself in some way: not at all Total score: 2 Depression Screening Interpretation: Negative Depression Screening Done: Yes Source: Developed by Drs. Mendoza Lawson, Jonathon Marcano and colleagues, with an educational rayray from [employer]. Thrive Questionnaire Date Thrive assessed: 03/26/25 I am a: Patient Within the past 12 months, did the food you bought not last and you didn't have the money to get more?: Never true Within the past 12 months, did you worry whether your food would run out before you got money to buy more?: Never true Do you have trouble paying for medicines?: No Do you have trouble getting transportation to medical appointments?: No Do you have trouble paying your heating and electricity bill?: No Do you have trouble taking care of your child, family member or friend?: No Do you have trouble with day-to-day activities such as bathing, preparing meals, shopping, managing finances, etc.?: No THRIVE Score: 0 AUDIT C Alcohol Use Questionnaire (AUDIT-C) 1. How often do you have a drink containing alcohol?: Never 3. How often do you have six or more drinks on one occasion?: Never Total Score: 0 TEENA-7 AMB Questionnaire TEENA-7 Date TEENA - 7 assessed: 03/26/25 Feeling nervous, anxious, or on edge: 1 = Several days Not being able to stop or control worryin = Not at all Worrying too much about different things: 0 = Not at all Trouble relaxin = Not at all Being so restless that it is hard to sit still: 0 = Not at all Becoming easily annoyed or irritable: 0 = Not at all Feeling afraid as if something awful might happen: 0 = Not at all Total TEENA-7 score (0-4 normal; 5-9 mild; 10-14 moderate; 15-21 severe): 1 Source: Developed by Drs. Mendoza Lawson, Jonathon Marcano and colleagues, with an educational rayray from [employer]. Review of Systems Narrative Review of Systems - Constitutional: Reports episodic extreme weakness. - Neurological: Reports episodes of extreme shaking, a chronic hand tremor, and balance issues. History of confusion and dizziness, which have been improving. - HEENT: Reports recent head trauma. Denies current oral lesions. - Musculoskeletal: Reports chronic back pain, which is improved. - Gastrointestinal: Reports that episodes of shaking are followed by a bowel movement. - Genitourinary: Reports improved urinary incontinence, now only occurring occasionally at night. Physical exam (Primary Care) Vital Signs: Last Vital Signs Temp 97.2 F 03/26/25 11:47 Pulse 86 03/26/25 11:47 BP 128/82 03/26/25 11:47 Pulse Ox 99 03/26/25 11:47 Oxygen Delivery Method Room Air 03/26/25 11:47 BMI result Body Mass Index 29.1 GENERAL Well developed, obese, in no apparent distress HEENT Head-Normocephalic Neck- Supple, No lymphadenopathy, thyroid WNL RESPIRATORY Normal I:E, Clear to auscultation CARDIOVASCULAR Regular, rate and rhythm, No murmurs or rubs GASTROINTESTINAL Soft, nontender, normal bowel sounds, no masses MUSCULOSKELETAL Back-Decreased ROM, Tender in Lumbar with muscle tightness, Tender with motion, DTR 2+ symmetrical, Gait - in wheel chair Joints- no swelling or deformity NEUROLOGICAL Gait in wheel chair PSYCHIATRIC Oriented to person, place and time Mood and affect WNL Appearance WNL Speech WNL Thought processes WNL Tobacco/Smoking Status: Tobacco use Status Tobacco use date assessed 03/26/25 03/26/25 11:48 Patient Tobacco Use Status Never used Tobacco 03/26/25 11:47 e-Cigarette/Vaping Use Never Used 03/26/25 11:47 PHQ-9: PHQ-9 Score PHQ-9: Total score 2 03/26/25 11:56 Depression Screening Interpretation: Negative Thrive Assessment: Date of Thrive Assessment Date Thrive assessed 03/26/25 03/26/25 11:48 Narrative Physical Exam - Head: Examination of a contusion shows that it appears unremarkable. - Neck: Examination of a contusion is unremarkable, tenderness has resolved. - Oral Cavity: Appears normal, with no evidence of thrush. Coding Level of Care Code Established Pt Est Pt Level 4 (09221) Established Pt Add On Problem Visit Only Patient Type Established Diagnoses Primary hypertension I10 Hypertension type: primary hypertension Chronic low back pain M54.50; G89.29 Tremor R25.1 Concussion S06.0XAA Time Spent (min) 30 Comment Time spent on chart review, H&P, Patient education and orders. Assessment & Plan Assessment & Plan (1) HTN (hypertension): Comment: BP today was 128/82 Code(s): I10 - Essential (primary) hypertension Category: Medical Qualifiers: Hypertension type: primary hypertension Qualified Code(s): I10 - Essential (primary) hypertension Plan: Controlled. Patient will continue current medications. Will monitor. Patient will follow up in 3 months. (2) Chronic low back pain: Code(s): M54.50 - Low back pain, unspecified; G89.29 - Other chronic pain Category: Medical Plan: Will be getting MRI and continue PT and follow up with Pain managment. (3) Tremor: Code(s): R25.1 - Tremor, unspecified Category: Medical Plan: Will watch. Patient to follow up on 04/11 (4) Concussion: Code(s): S06.0XAA - Concussion with loss of consciousness status unknown, initial encounter Plan: Reviewed brain rest and prevention of future falls Plan Plan Patient was informed and verbally consented to the use of an ambient scribe for clinic note documentation during this visit. 1. Lumbar Spondylolisthesis The patient is managing chronic back pain related to an L1 slippage with Tylenol, heat, and topical lidocaine, while weaning off Flexeril. An MRI is pending from the patient's apprentice painter neckties. A referral will be placed for a second opinion with neurosurgery at [facility], pending the results of the MRI. Due to high Tylenol intake, the patient was counseled to reduce the dose to a maximum of 3,000 mg per day. Blood work will be ordered to check liver function. The patient is starting home PT and OT. 2. Concussion The patient sustained a concussion from two falls, which is the likely cause of the recent confusion and dizziness. The confusion is improving as the patient weans off Flexeril. The recommendation to use a walker at all times to prevent further falls was reinforced. 3. Tremors The patient reports weekly episodes of severe shaking and weakness that precede a bowel movement, in addition to a chronic hand tremor with a family history of essential tremor. The association with bowel movements suggests possible autonomic nervous system involvement (vagus nerve stimulation). A referral to Neurology will be placed for further evaluation. Discussion Notes I discussed the plan to order blood work to monitor liver function due to the patient's high Tylenol intake and a urinalysis to rule out infection. I explained my reasoning for two new referrals: one to Neurology to evaluate the shaking episodes, considering a differential of essential tremor versus an autonomic issue, and a second to Neurosurgery at [facility] for another opinion on the lumbar spondylolisthesis. I explained that the neurosurgery consultation would likely happen after the pending MRI is completed. We discussed that the patient's recent confusion was likely multifactorial, stemming from a concussion after the recent falls and the side effects of medications like Flexeril, and that it may take time to fully resolve. I reinforced the recommendation from the apprentice painter neckties for the patient to use a walker at all times for safety. I advised the patient to reduce Tylenol intake to a maximum of 3,000 mg per day. We agreed to cancel the upcoming appointment on April 11 and to schedule a follow-up visit in 4-6 weeks. Patient Instructions - Please reduce your Tylenol intake to no more than 2 pills, 3 times per day (a total of 6 pills daily). - Please go to a lab to have blood drawn to check your liver and to provide a urine sample. - Continue to use your walker at all times to help with balance and prevent falls. - Continue with your physical and occupational therapy at home. - We are referring you to a neurologist for the shaking episodes and to a neurosurgeon for a second opinion on your back. - The specialist offices will call you to schedule these appointments. - Please call your pain management office if you do not hear about scheduling your MRI by Wednesday. - We will cancel your appointment for April 11. Please call our office to schedule a follow-up appointment in 4 to 6 weeks.
--- OUTSIDE RECORDS SUMMARY | 2025-03-26 15:31 | XMS_ITS | Clinical Summary ---
Author Organization [facility] Address [address] [address] Phone Care Team Providers Care Retail Maintenance Technician Name Role Phone Vinicius Rojas MD Primary [...] Devices Not on file Insurance [employer] [id number] [employer] [place] MED[employer] POS PPO REPLACEMENT [...] [place] MED[place] PPO REPLACEMENT Care Teams Retail Maintenance Technician Relationship Specialty Start Date End Date Vinicius Rojas MD [address] [place] [address] Dr [place] [address] PCP - General Internal Medicine 05/13/18 Additional Source Comments The information contained in this document represents components of the legal health record. It is not the complete legal health record.[facility]
== END 2025-03-26 12:34 | disposition home or self-care (01) ==
LOC: HO.HMCHD 11:46
PROVIDERS: PCP Physician Assistant Medical; Visit Provider Physician Assistant Medical
DX: I10 Essential (primary) hypertension (principal); M54.50 Low back pain, unspecified; G89.29 Other chronic pain; R25.1 Tremor, unspecified; S06.0XAA Concussion with loss of consciousness status unknown, initial encounter

== ENCOUNTER → 2025-03-26 11:46 | Outpatient (BNVA) | payer MEDICARE, SELFPAY | PROVIDERS: PCP Physician Assistant Medical; Visit Provider Physician Assistant Medical | DX: M43.16 Spondylolisthesis, lumbar region (principal); I10 Essential (primary) hypertension; M54.50 Low back pain, unspecified; G89.29 Other chronic pain; R41.3 Other amnesia; R25.1 Tremor, unspecified; Z13.31 Encounter for screening for depression; Z13.39 Encounter for screening examination for other mental health and behavioral disorders; Z91.81 History of falling; R42 Dizziness and giddiness | CPT/HCPCS: 96127; 99212 ==

== ENCOUNTER 2025-03-28 11:50 | Outpatient (REF) | payer MEDICARE, SELFPAY ==
--- OUTSIDE RECORDS SUMMARY | 2025-03-25 23:59 | XMS_ITS | Continuity of Care Document ---
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 Role Phone Vinicius Rojas MD Primary Care Physician [phone] Encounter [facility] Date(s): 02/23/25 - 03/25/[address] [address]- Attending Physician: Not on Staff, Attending MD Admitting Physician: Not on Staff, Admitting MD Referring Physician: Not on Staff, Referring MD Encounter Type: Pre-Outpt Allergies, Adverse Reactions, Alerts Substance Criticality Severity Reaction Reaction Severity Status amoxicillin Active penicillins Active EPINEPHrine Active Medications Aspirin = 81 mg, By Mouth, Daily, 0 Refills, Maintenance, 01/27/13 3:08:40 PM EDT Start Date: 01/27/13 Status: Ordered Medication Dispense Status: Completed Total Allowed Fills: 1 Fills Dispensed: 0 Calcium 600 +D 1 tablet, By Mouth, Daily, 0 Refills, Maintenance, 01/27/13 3:09:06 PM EDT Start Date: 01/27/13 Status: Ordered Medication Dispense Status: Completed Total Allowed Fills: 1 Fills Dispensed: 0 Excedrin By Mouth, Every 6 hours, 0 Refills, Maintenance, 11/25/20 5:15:00 PM EDT, Partial fill upon patient request if the prescription is for a schedule II opioid drug. Start Date: 11/25/20 Status: Ordered Medication Dispense Status: Completed Total Allowed Fills: 1 Fills Dispensed: 0 fiorinal for headache pain fiorinal for headache pain, Refills 0, Maintenance, 11/27/20 5:07:00 PM EDT, Supply Start Date: 11/27/20 Status: Ordered Medication Dispense Status: Completed Total Allowed Fills: 1 Fills Dispensed: 0 Flax Seed Oil 0 Refills, Maintenance, 01/27/13 3:09:25 PM EDT Start Date: 01/27/13 Status: Ordered Medication Dispense Status: Completed Total Allowed Fills: 1 Fills Dispensed: 0 Ibuprofen PRN, Maintenance, as needed for pain, 02/17/13 11:24:55 AM EDT Start Date: 02/17/13 Status: Ordered Medication Dispense Status: Completed Total Allowed Fills: 1 Fills Dispensed: 0 lisinopril 20 mg oral tablet 1 tablet = 20 mg, By Mouth, 2 times a day, pt is holding med, 0 Refills, Maintenance, 01/27/13 3:08:06 PM EDT Start Date: 01/27/13 Status: Ordered Medication Dispense Status: Completed Total Allowed Fills: 1 Fills Dispensed: 0 magnesium magnesium, Refills 0, Maintenance, 10/09/21 8:12:00 AM EDT, Supply Start Date: 10/09/21 Status: Ordered Medication Dispense Status: Completed Total Allowed Fills: 1 Fills Dispensed: 0 Meclizine By Mouth, 3 times a day, 0 Refills, Maintenance, 11/25/20 5:15:00 PM EDT, Partial fill upon patient request if the prescription is for a schedule II opioid drug. Start Date: 11/25/20 Status: Ordered Medication Dispense Status: Completed Total Allowed Fills: 1 Fills Dispensed: 0 Multivitamin Daily, 0 Refills, Maintenance, 11/25/20 5:14:00 PM EDT, Partial fill upon patient request if the prescription is for a schedule II opioid drug. Start Date: 11/25/20 Status: Ordered Medication Dispense Status: Completed Total Allowed Fills: 1 Fills Dispensed: 0 nitroglycerin 0.4 mg sublingual tablet 1 tablet = 0.4 mg, Sublingual, Every 5 minutes, PRN for chest pain, not to exceed 3 doses/15 min--if pain persists, seek medical attention, # 50 tablet, 0 Refills, Maintenance, 01/27/13 3:57:41 PM EDT, Tablet, [facility] # 50 Start Date: 01/27/13 Status: Ordered Medication Dispense Status: Completed Quantity: 50.0 Unit: tablet Total Allowed Fills: 1 Fills Dispensed: 0 simvastatin 20 mg oral tablet 1 tablet = 20 mg, By Mouth, Daily at bedtime, 0 Refills, Maintenance, 01/27/13 3:08:21 PM EDT Start Date: 01/27/13 Status: Ordered Medication Dispense Status: Completed Total Allowed Fills: 1 Fills Dispensed: 0 Vitamin D3 By Mouth, 0 Refills, Maintenance, 01/27/13 3:09:17 PM EDT Start Date: 01/27/13 Status: Ordered Medication Dispense Status: Completed Total Allowed Fills: 1 Fills Dispensed: 0 Problem List Condition Confirmation Course Effective Dates Status Health St atus Informant Precordial pain Confirmed Active Social History Social History Type Response Sex Sex Representation Female (finding) Patient Care team information Care Team Personnel Name: Vinicius Rojas MD Position: [facility] Outreach Member Role: PCP Address: [address] [place] [address] Vinicius [place] [address] Telecom: Care Team Related Persons Name: ABEL CH Insurance Providers Guarantor name: STEPH CH Health Plan Information #: 1 Payer: [employer] ADV HMO Payer Identifier: ALONZO Member Number: [id number] Group Number: [id number] Subscriber Identifier: NA Relationship to Subscriber: self Coverage Type: Medicare HMO Coverage Verification Date: NA Telecom: NA Address:
[2025-03-28 13:24] LABS: Hematocrit 37.5 % (37.0-47.0); Hemoglobin 12.7 g/dl (12.0-16.0); Mean Corpuscular HGB Conc 33.9 g/dl (31.0-35.0); Mean Corpuscular Hemoglobin 30.5 pg (27.0-33.0); Mean Corpuscular Volume 90.1 fL (80.0-98.0); NRBC Abs Auto 0.000 X10*3/uL (0.0-0.012); NRBC Pct Auto 0.0 /100WBC (0.0-0.2); Platelet Count 316 X10*3/uL (160-400); Red Blood Count 4.16 X10*6/uL (4.20-5.50); White Blood Count 6.6 X10*3/uL (4.8-10.8)
[2025-03-28 13:36] LABS: Appearance Urine Turbid; Glucose Urine UA Negative (Negative); PH 8.5 (5.0-9.0); Specific Gravity - Urine 1.020 (1.005-1.025); UMIC TRIGGER UACC YES
[2025-03-28 14:06] LABS: Other Crystals Urine Present; UACC Culture Trigger YES
[2025-03-28 14:12] LABS: Alanine Aminotransferase 46 U/L (0-31); Albumin Level 4.5 g/dL (3.5-5.0); Alkaline Phosphatase 99 U/L (39-117); Anion Gap 13 (12-20); Aspartate Amino Transferase 34 U/L (5-31); Blood Urea Nitrogen 16 mg/dL (9-16); Calcium 9.7 mg/dL (8.4-10.2); Carbon Dioxide 26 mmol/L (22-29); Chloride 101 mmol/L (96-108); Estimated Glomerular Filt Rate > 60; Potassium 4.8 mmol/L (3.3-5.1); Sodium 135 mmol/L (135-145); Total Protein 7.0 g/dL (6.5-8.0)
--- OUTSIDE RECORDS SUMMARY | 2025-03-28 14:16 | XMS_ITS | Clinical Summary ---
Author Organization [facility] Address [address] [address] Phone Care Team Providers Care Forestry Farm Laborer Name Role Phone Vinicius Rojas MD Primary [...] Devices Not on file Insurance [employer] [id number] [employer] [place] MED[place] POS PPO REPLACEMENT [...] [place] MED[place] POS PPO REPLACEMENT Care Teams Forestry Farm Laborer Relationship Specialty Start Date End Date Vinicius Rojas MD [address] [place] [address] [place] [address] PCP - General Internal Medicine 05/13/18 Additional Source Comments The information contained in this document represents components of the legal health record. It is not the complete legal health record.[facility]
[2025-03-28 14:26] LABS: Ferritin 100 ng/mL (10-250)
== END 2025-03-28 11:51 | disposition home or self-care (01) ==
LOC: HO.HMGCLDS 11:50
PROVIDERS: PCP Physician Assistant Medical; Visit Provider Physician Assistant Medical
DX: I10 Essential (primary) hypertension (principal); E87.1 Hypo-osmolality and hyponatremia; D64.9 Anemia, unspecified
CPT/HCPCS: 36415; 80053; 81001; 82728; 85027; 87086

== ENCOUNTER 2025-04-06 09:36 | Outpatient (AMB) | payer MEDICARE, SELFPAY ==
--- NOTE | 2025-04-06 09:37 | A.OFFVIS_ITS ---
Vital Signs 04/06/25 09:41 04/06/25 09:42 Height 5 ft 1 in Weight 154 lb 2 oz BMI 29.1 BP 170/79 H 151/69 H Blood Pressure Location Rt brachial Lt brachial Position Sitting Sitting Pulse 80 Pulse Source Pulse Oximeter Pulse Oximetry (%) 97 Oxygen Delivery Method Room Air Comment bp recheck Intake Visit Reasons: MRI FOLLOW UP Intake Note: Pain today 05/05 Community Mental Health Social Worker Required: No Accompanied by: Daughter Allergies epinephrine (EPINEPHRINE) Allergy (Severe, Verified 04/06/25 09:42) EPI MIXED IN A LOCAL ANES. lOW BP LIGHTHEADEDNES, bradycardia amoxicillin (AMOXICILLIN) Allergy (Mild, Verified 04/06/25 09:42) RASH metoprolol Allergy (Unknown, Verified 04/06/25 09:42) Fatigued penicillin V Allergy (Unknown, Verified 04/06/25 09:42) rash HPI Comments Details: The patient is an 79-year-old female presenting for an MRI follow-up. She reports her baseline pain level is 1/10, but it increased to 3-4/10 while sitting in a hard chair during the visit. Her pain is localized to the left low back and tends to worsen later in the day, particularly after activities like running errands. Her walking has improved, and she can be up and around her house for 10-15 mi nutes before needing to sit down and elevate her feet, which provides relief. She continues with in-home physical therapy, which is now focused on improving her balance. She has not had any recent falls, and her strength was noted by her PT to be good. The patient's significant issues began around January, when she developed a severe, deep cough from a cold and subsequently had two falls. Prior to this, she was walking two miles per day. She also has a history of an ER visit for severe muscle spasms across her back. Her daughter reports that the patient experiences spells of profound weakness and shakiness while sitting, which resolve completely after she has a bowel movement. This has not occurred in the past week. PRIOR 03/20/25: The patient is an 79 year old individual presenting for evaluation and management of severe chronic back pain and frequent falls due to balance concerns. The patient was recently resided for a week at [facility] for severe back pain and spasms after evaluation in ER on 02/14/25 status post fall. The patient has a history of multiple falls. On February 03, the patient fell face forward but reports she sustained no injuries. More recently, the patient experienced two backward falls on the same day, hitting the back of the head. One fall occurred while bending forward to get something from the refrigerator, and the other from slipping. The patient now uses a walker, which is new, and reports balance issues. Denies prior spine surgery or injections. The patient has a history of osteoporosis, lumbar fractures and more recently osteopenia confirmed by a recent bone density scan and had previously taken medication for it years ago but stopped. The patient reports developing a bad cold with a deep cough on January 24, and the severe back pain started about 10-11 days later. She was diagnosed with Coronavirus OC43 at that time. Prior to this recent decline, the patient was an active walker, capable of walking two miles a day. The patient lives alone and will be resuming [employer] services. The patient has completed physical and occupational therapy recently with no relief of back pain. Medications include Flexeril, which the patient is trying to taper, Tylenol, Ibuprofen and oxycodone, which has not been taken in a week. She reports oxycodone has been effective. She also tried menthol, heat therapy, diclofenac gel and lumbar support brace with continued symptoms. The patient reports occasional constipation managed with Miralax, which is not associated with an increase in pain. Patient has history of non-obstructive CAD and paroxismal Afib and takes Eliquis. Patient denies smoking or recreational drug use. She consumes wine rarely and drinks 1-2 cups of decaffeinated coffee a day. - Onset and Timing: Pain is constant, worse in the afternoon into the night, reaching a severity of 10/10. - Quality and Character: The pain is described as stabbing, sharp, pinching, cramping, pulling, tugging, sore, aching, and heavy. - Location and Radiation: Pain is localized to the back, with no radiation to the legs. Reports heaviness and weakness in legs with walking. - Severity: Pain is rated as 4/10 in the morning, increases to 10/10 by the evening. - Exacerbating Factors: Bending forward causes a loss of balance and increases pain. - Relieving Factors: Leaning backward is reported to be less painful than bending forward. - Interfering Factors: Pain affects daily activities and walking capacity, and makes the patient feel tired. - Affect: The patient reports feeling tired due to the pain. - Analgesia: Current pain level is 4/10 in the mornings and 10/10 in the evenings. - The patient is taking Flexeril one tablet three times a day and is attempting to taper the dose. - The patient has not taken oxycodone for one week. - Adverse Effects: The patient reports balance issues, which may be related to medications such as Flexeril. - Activities of Daily Living: Pain interferes with daily activities and walking capacity, necessitating the use of a walker. - The patient's functional goal is to return to walking two miles as the patient was able to do prior to the current episode. - Aberrant Drug-Related Behaviors: None noted; the patient is actively trying to decrease the dose of muscle relaxants. Oswestry Low Back Pain Disability Score=37 [facility] Medical History (Updated 04/06/25 @ 12:50 by RUFINO Farooq) Anemia Tremor Urinary incontinence Constipation Oral thrush Hyponatremia Chronic low back pain HTN (hypertension) Paroxysmal atrial fibrillation Cataract Family History Father Myocardial infarct Mother Myocardial infarct Brother History of quadruple bypass Social History Household Members: None Housing: House Do you presently have visiting nurse or other home services: No Alcohol intake: current Alcohol intake frequency: holidays/special occasions only Alcohol type: wine Patient Tobacco Use Status: Never used Tobacco e-Cigarette/Vaping Use: Never Used Advance Directives Date on File: 03/09/25 service: No Current occupational status: retired Cognitive needs: Yes (WALKER) Hearing needs: No Vision needs: Yes (reading glasses) Review of Systems Narrative - Constitutional: Reports episodes of weakness and shakiness with severe pain. - Musculoskeletal: Reports left-sided low back pain. Denies leg heaviness and weakness but notable limited walking capacity. - Neurological: Reports episodes of shakiness. Denies recent falls or unsteadiness. Const All systems reviewed & are unremarkable except as noted in HPI and below Physical Exam Vital Signs: Last Vital Signs Pulse 80 04/06/25 09:41 BP 151/69 H 04/06/25 09:42 Pulse Ox 97 04/06/25 09:41 Oxygen Delivery Method Room Air 04/06/25 09:41 BMI result Body Mass Index 29.1 General: Appears afebrile. Alert and oriented. Mood and affect appropriate. Follows and participates in conversation appropriately. Respiratory effort is unlabored. No cough. Able to transition from sit to stand unassisted. Ambulates with antalgic, slow gait with use of walker. Kyphotic forward posture. Reports decreased walking capacity and balance issues due to back pain. General: Yes no CVA tenderness Back/Spine/Pelvis Other: Limited lumbar ROM due to pain. No midline TTP in the upper and lower lumbar regions. Palpation of the back elicits tenderness over the left lower paraspinal muscles, with less tenderness on the right. Lumbar flexion and limited bending reproduces moderate to severe pain, lumbar extension 5-10 degrees reproduces mild-moderate pain. Demonstrates 5/5 right and 4/5 left strength of quadriceps bilaterally as well as flexion/dorsiflexion of bilateral feet against resistance. 2+ pedal pulses bilaterally. Straight leg rise with dorsiflexion positive bilaterally. Diminished patellar and achilles reflexes bilaterally. Facet loading test positive bilaterally. No groin pain with I/E hip rotations. Valsalva maneuver is positive. Back: no CVA tenderness Cervical Spine: cervical ROM normal, cervical muscular tenderness, pain with cervical ROM, No Cervical spine scars present and No Cervical spine tenderness Thoracic/Lumbar Spine: thoracic and lumbar spine normal to inspection, No Thoracic/lumbar spine scar(s), kyphosis, Lasegue's sign positive bilateral and diffuse, pain with thoraco-lumbar ROM, paraspinal muscle tenderness on the left in the lower lumbar, thoraco-lumbar ROM limited, Thoracic/lumbar scoliosis, No thoracic spinal tenderness and No lumbar spinal tenderness Sacroiliac joints: bilaterally tender to palpation Extrem General: Yes capillary refill normal, Yes no clubbing, cyanosis or edema and Yes no calf tenderness Results Reviewed Results Reviewed: XR lumbar spine 2-3V 02/14/25 CLINICAL HISTORY: pain 4 views lumbar spine Comparison: None provided Findings: Grade 2 anterolisthesis at L4-L5. Chronic appearing compression deformities noted at L1 height loss, L2 along the superior endplate with mild height loss, L3 and L4 with mild height loss. No significant retropulsion. No acute appearing fracture lines. Foraminal stenoses at L5-S1. Osteopenia. Multilevel spondylosis with diffuse osteophytosis, facet arthropathy and degenerative disc disease. IMPRESSION: Chronic appearing changes without obvious acute fracture. If clinical concern persists consider follow-up MRI. XR DEXA axial skeleton 03/07/25 IMPRESSION: Based on bone mineral density, and according to World Health Organization (WHO) criteria, the diagnosis is consistent with osteopenia based on lowest T score of -2.3 in the left femoral neck. Bone mineral density appears improved in the spine compared to prior exam. CT cervical spine wo IV con 03/08/25 Reason for Exam: fall/+HS on eliquis CLINICAL HISTORY: fall +HS on eliquis CT cervical spine without contrast Comparison: CT/GA/SR - CT CERVICAL SPINE WITHOUT IV CONTRAST - 03/08/2025 09:44 AM EST Findings: There is reversal of the normal cervical lordosis which may be positional. There is grade 1 anterolisthesis of C3 on C4 and C4 on C5. No acute fractures or dislocations. Multilevel facet arthropathy. Endplate sclerosis and uncovertebral hypertrophy worst C6-C7. No high-grade spinal canal narrowing. Soft tissues of the neck are normal. No consolidation or effusion at the lung apices. IMPRESSION: No acute fracture of the cervical spine. No change compared to prior exam earlier this same date. XR LUMBOSACRAL SPINE 03/20/25 CLINICAL INFORMATION: M43.16 - Spondylolisthesis, lumbar region COMPARISON: 02/12/2025 TECHNIQUE: 6 views of the lumbar spine, inclusive of flexion and extension views, were obtained. FINDINGS: Moderate vascular calcification is present in the aorta. There are 5 nonrib-bearing lumbar segments. There is 18 degrees levoscoliosis, previously 8 degrees. Numerous compression fractures are present. L1: Severe superior endplate compression fracture has increased since the prior resulting in focal hyperkyphosis. L2: Mild concavity of the anterior superior endplate is stable. L3: Mild superior endplate wedging is stable. L4: Mild to moderate superior endplate concavity is stable. There is grade 1, borderline grade 2 anterolisthesis at L4-5. Oblique view demonstrates questionable pars interarticularis defect on the left. Image detail is obscured by body habitus. With flexion and extension, there is no sign of instability. IMPRESSION: Severe superior endplate fracture of L1 has increased since the prior study one month ago. Numerous other compression fractures are stable. There is increasing levoscoliosis and kyphosis of the lumbar spine L4-5 demonstrates grade 1, borderline grade 2 anterolisthesis. A pars interarticularis defect cannot be ruled in or out on the left. No instability was demonstrated on flexion and extension views. MR LUMBAR SPINE WITHOUT CONTRAST 03/28/25 RAYUS INDICATION: Back pain COMPARISON: None. TECHNIQUE: Multiplanar T1 and T2-weighted imaging of the lumbar spine. FINDINGS: The conus is in its normal position at the level of L1. There is an acute or subacute anterior superior endplate compression fracture deformity of L1 with approximately 80% loss of vertebral body height. Bone marrow edema is present. There is some retropulsion of the fracture into the bony spinal canal with mild central canal stenosis. There is a focal kyphosis present centered at T12-L1 secondary to the fracture. There are Modic type I reactive degenerative endplate changes present at L4-5. There are Modic type II reactive degenerative endplate changes present at L5-S1. Throughout the lumbar spine, diffuse degenerative disc changes are present with varying degrees of disc desiccation. T10-T12: The central canal and neural foramen are patent. T12-L1: There is mild central canal stenosis secondary to the retropulsed fracture. There is mild narrowing present of both neural foramen. L1-L2: Mild disc bulging is present. The central canal and neural foramen are patent. L2-3: Mild disc bulging is present. Mild facet osteoarthritic changes are present. There are bilateral facet effusions present. The central canal and neural foramen are patent. L3-4: Mild disc bulging is present. Schmorl's node formation is present. Moderate facet osteoarthritic changes are present. There is mild narrowing of the lateral recesses and the central canal. There is mild narrowing present of both neural foramen. L4-5: Degenerative spondylolisthesis is present. Marked facet osteoarthritic changes are present. There is severe bilateral lateral recess stenosis and severe central canal stenosis present. There is mild narrowing present of the left neural foramen. The right neural foramen is patent. L5-S1: Mild disc bulging is present. Moderate facet osteoarthritic changes are present. There is mild narrowing of the neural foramen. The central canal is patent. IMPRESSION: 1. There is an acute or subacute compression fracture deformity present of L1. 2. Spondylotic findings as described above that are most severe at L4-5 where there is severe canal and lateral recesses stenosis. Assessment & Plan Assessment & Plan (1) Chronic low back pain: Code(s): M54.50 - Low back pain, unspecified; G89.29 - Other chronic pain Category: Medical (2) Spondylolisthesis at L4-L5 level: Code(s): M43.16 - Spondylolisthesis, lumbar region Category: Medical (3) Lumbar compression fracture: Code(s): S32.000A - Wedge compression fracture of unspecified lumbar vertebra, initial encounter for closed fracture Category: Medical (4) Spinal stenosis, lumbar region with neurogenic claudication: Code(s): M48.062 - Spinal stenosis, lumbar region with neurogenic claudication Category: Medical (5) Lumbosacral spondylosis: Code(s): M47.817 - Spondylosis without myelopathy or radiculopathy, lumbosacral region Category: Medical (6) Vertebrogenic low back pain: Code(s): M54.51 - Vertebrogenic low back pain Category: Medical Plan The patient's clinical picture is multifactorial, stemming from severe spinal stenosis at L4-L5, less from an [id number] L1 compression fracture with significant height loss at this time, endplate degenerative changes with Schmorl's nodes and Modic changes, and borderline second-degree spondylolisthesis at L4-L5 causing instability, and significant degenerative arthritis. These findings are consistent with her symptoms of neurogenic claudication, limiting her walking distance, and may explain her episodes of weakness related to Valsalva maneuvers. Given the severity of the spinal stenosis and instability, an urgent referral will be made to our Neurosurgery spine center for evaluation of surgical options. Procedural interventions such as epidural steroid injections are contraindicated at this time due to the risk of worsening spinal cord compromise and the presence of severe L1 compression fracture. We will follow up with bone scan to rule out if this is osteoporotic fracture. It was explained that surgery would be aimed at improving her stability and functional capacity, such as walking and sitting, but ost likely would not cure the underlying severe arthritis and chronic low back pain, which would continue to be managed by our clinic. The patient is advised to continue using her walker in open spaces for safety and cane.. She will follow up here after the Neurosurgery consultation. All questions and concerns have been answered and patient and family agreed with the treatment plan. Patient was informed and verbally consented to the use of an ambient scribe for clinic note documentation during this visit. Orders: Orders XR DEXA axial skeleton Today M81.0 - Age-related osteoporosis without current pathological fracture, S32.000A - Wedge compression fracture of unspecified lumbar vertebra, initial encounter for closed fracture Referrals Neuro Spine Referral G89.29 - Other chronic pain, M43.16 - Spondylolisthesis, lumbar region, M48.062 - Spinal stenosis, lumbar region with neurogenic claudication, M54.50 - Low back pain, unspecified, S32.000A - Wedge compression fracture of unspecified lumbar vertebra, initial encounter for closed fracture Coding Level of Care Code Est Pt Level 4 (35152) Diagnoses Chronic low back pain M54.50; G89.29 Spondylolisthesis at L4-L5 level M43.16 Lumbar compression fracture S32.000A Spinal stenosis, lumbar region with neurogenic claudication M48.062 Lumbosacral spondylosis M47.817 Vertebrogenic low back pain M54.51
[2025-04-06 09:41] VITALS: BP 170/79; PULSE 80; O2SAT 97; BMI 29.1
[2025-04-06 09:42] VITALS: BP 151/69
== END 2025-04-06 10:14 | disposition home or self-care (01) ==
LOC: HO.PMC 09:36
PROVIDERS: PCP Physician Assistant Medical; Visit Provider Nurse Practitioner Family
DX: M54.50 Low back pain, unspecified (principal); G89.29 Other chronic pain; M43.16 Spondylolisthesis, lumbar region; S32.000A Wedge compression fracture of unspecified lumbar vertebra, initial encounter for closed fracture; M48.062 Spinal stenosis, lumbar region with neurogenic claudication; M47.817 Spondylosis without myelopathy or radiculopathy, lumbosacral region; M54.51 Vertebrogenic low back pain
CPT/HCPCS: 99214

== ENCOUNTER → 2025-04-06 09:36 | Outpatient (BNVA) | payer MEDICARE, SELFPAY | PROVIDERS: PCP Physician Assistant Medical; Visit Provider Nurse Practitioner Family | DX: S32.010A Wedge compression fracture of first lumbar vertebra, initial encounter for closed fracture (principal); M43.16 Spondylolisthesis, lumbar region; M48.062 Spinal stenosis, lumbar region with neurogenic claudication; M47.817 Spondylosis without myelopathy or radiculopathy, lumbosacral region; M54.51 Vertebrogenic low back pain; M54.50 Low back pain, unspecified; G89.29 Other chronic pain | CPT/HCPCS: 99212 ==

== ENCOUNTER 2025-04-20 14:07 | Outpatient (AMB) | payer MEDICARE, SELFPAY ==
--- OUTSIDE RECORDS SUMMARY | 2025-04-20 14:10 | XMS_ITS | Clinical Summary ---
Author Organization [facility] Address [address] [address] Phone Care Team Providers Care Supervisor Wool Shearing Name Role Phone Vinicius Rojas MD Primary [...] Devices Not on file Insurance [employer] [id number] [employer] POS PPO REPLACEMENT [...] [place] MED[employer] POS PPO REPLACEMENT Care Teams Supervisor Wool Shearing Relationship Specialty Start Date End Date Vinicius Rojas MD [address] [place] [address] Dr [place] [address] PCP - General Internal Medicine 05/13/18 Additional Source Comments The information contained in this document represents components of the legal health record. It is not the complete legal health record.[facility]
--- NOTE | 2025-04-20 14:54 | HO.SPINEOV ---
Vital Signs 04/20/25 14:58 Height 5 ft 1 in Weight 154 lb BMI 29.1 Intake Visit Reasons: lbp Intake Note: Ms. Collier is here today c/o low back pain. [place] [facility] [place] Screen Operator Required: No Allergies epinephrine (EPINEPHRINE) Allergy (Severe, Verified 04/20/25 14:59) EPI MIXED IN A LOCAL ANES. lOW BP LIGHTHEADEDNES, bradycardia amoxicillin (AMOXICILLIN) Allergy (Mild, Verified 04/20/25 14:59) RASH metoprolol Allergy (Unknown, Verified 04/20/25 14:59) Fatigued penicillin V Allergy (Unknown, Verified 04/20/25 14:59) rash Physical Exam Vital Signs: BMI result Body Mass Index 29.1 Assessment & Plan Assessment & Plan (1) Lumbar compression fracture: Code(s): S32.000A - Wedge compression fracture of unspecified lumbar vertebra, initial encounter for closed fracture Category: Medical (2) Spinal stenosis, lumbar region with neurogenic claudication: Code(s): M48.062 - Spinal stenosis, lumbar region with neurogenic claudication Category: Medical Plan Dear Genny, Thank you for referring Mrs Collier to our office today. She is a very nice 79-year-old female with a history of osteoporosis, who has had on and off occasional minor back pain issues throughout her life, who had a series of falls after she was in rehab, and subsequently also had a bad viral infection that left her with a bad cough. Ultimately she developed severe back pain and was diagnosed with an L1 subacute to acute compression fracture. She was also diagnosed with L4-5 spondylolisthesis and stenosis and was referred for evaluation of that. She currently has back pain which she localizes on the left than the paraspinal region. Has no lower extremity symptoms to report. She does have balance issues, but attributes that the medications that she had been taking. PMH: History of hypertension, coronary disease, AFib on Eliquis, osteoporosis, hypothyroidism, cataract surgery. She has not report any history of stroke, CA, heart failure, major pulmonary problems, liver or kidney disease, diabetes, major abdominal surgery, blood clots or unusual infections. Social hx: She has not smoke, drink use any recreational drugs Medications: Eliquis levothyroxine, flecainide, simvastatin, lisinopril, diltiazem, calcium, Xanax, multivitamin Allergies: Amoxicillin, and any local anesthetic mixed with epinephrine gives her some kind of reaction that will give her a syncopal episode or an arrhythmia Physical exam: She is awake alert oriented here with her son today, she is able to stand up out of a chair on her own, she localizes her pain to the left paraspinal region mid lumbar. Strength and reflexes are normal. She walks with a walker relatively stable. Imaging review: Lumbar MRI done at the [facility] reveals acute to subacute L1 compression fracture with about 80% height loss. At L4-5 she has a spondylolisthesis grade 1 and moderate to severe central canal stenosis. She has facet arthropathy as well. Impression: 79-year-old female history of osteoporosis who presents with 2 lumbar problems. The 1st as an L1 compression fracture acute to subacute seen on her MRI which is likely related to either her coughing fits with her viral episode, or to the fall she took after she got out of rehab. She is tentatively plan for kyphoplasty and this seems like a reasonable option given that she has had the pain now for few months and has not resolved. The other issue is the spondylolisthesis L4-5 with central stenosis. She has had on and off back issues for many years but they are just relatively mild things that will not debilitate her or create any decrease in her level of functional ability. Before these recent falls in the L1 compression fracture she enjoyed relatively active life. She does not have any lower extremity symptoms to report. At this point this is probably something that is best treated with just conservative management and observing for symptoms. There is no indication to do any kind of preventative surgery for this, she can just be followed clinically. I educated her and her son using an image of her spinal MRI and discussed what the symptoms of lumbar stenosis are. Because surgery for this would likely involve some kind of instrumentation and she has a history of osteoporosis we will have a high threshold for discussing surgery given the risk for complications. Thank you for allowing us to care for your patient. The total time spent with this visit with this patient was 45 minutes reviewing history, physical exam, lumbar imaging review, and implementation of treatment plan or further diagnostic testing Justyn Schwarz MD,PhD [facility] Coding Level of Care Code New Pt Level 4 (93354) Diagnoses Lumbar compression fracture S32.000A Spinal stenosis, lumbar region with neurogenic claudication M48.062
[2025-04-20 14:58] VITALS: BMI 29.1
== END 2025-04-20 16:04 | disposition home or self-care (01) ==
LOC: HO.HNS 14:07
PROVIDERS: PCP Physician Assistant Medical; Visit Provider Physician Assistant
DX: S32.000A Wedge compression fracture of unspecified lumbar vertebra, initial encounter for closed fracture (principal); M48.062 Spinal stenosis, lumbar region with neurogenic claudication
CPT/HCPCS: 99204

== ENCOUNTER → 2025-04-20 14:07 | Outpatient (BNVA) | payer MEDICARE, SELFPAY | PROVIDERS: PCP Physician Assistant Medical; Visit Provider Physician Assistant | DX: S32.000A Wedge compression fracture of unspecified lumbar vertebra, initial encounter for closed fracture (principal); M48.062 Spinal stenosis, lumbar region with neurogenic claudication; M81.0 Age-related osteoporosis without current pathological fracture; M43.16 Spondylolisthesis, lumbar region; W19.XXXA Unspecified fall, initial encounter; Y92.89 Other specified places as the place of occurrence of the external cause; Y93.9 Activity, unspecified; Y99.9 Unspecified external cause status | CPT/HCPCS: 99202 ==